=== PATIENT | female | born 1990 | race Caucasian/White ===

== ENCOUNTER 2017-05-22 16:38 | Emergency (ER) | payer OTHER, SELFPAY ==
[2017-05-22 16:38] VITALS: BP 116/73; PULSE 95; RESP 18; TEMP 36.8; O2SAT 100; BMI 36.5
--- NOTE | 2017-05-22 17:11 | ED.VISSUMM ---
- ER Visit Summary Date of Service: 05/22/17 Chief Complaint: [] Alcohol poisoning History of Present Illness: The patient is a 27 F [] complaining of severe malaise and nausea after reportedly drinking 20 shots of alcohol last night with her friends. Reports diffuse abdominal discomfort. Reports difficulty getting comfortable. Denies having an alcohol problem. She reports this was an isolated incident. Physical Examination: [] Afebrile, vital signs stable. Middle-age female no acute distress. Cardiovascular exam is regular rate and rhythm. Lungs are clear to auscultation. Abdomen is soft and nontender. Remainder of exam is unremarkable. Test Results: [] White blood cell count elevated 12.9. Electrolytes normal. LFTs normal. Lipase normal. EtOH negative. Emergency Department Course and Treatment: [] She given intravenous fluids, Phenergan. On serial exam she was able to pass a p.o. challenge and was amenable to discharge. She was counseled on the importance of avoiding high volumes of alcohol consumption. Provided a short-term prescription for Phenergan tablets 25 mg #20. Treatment Plan: [] Follow-up with PCP. Disposition: [] Discharge, stable. Impression: [] Vomiting Alcohol abuse This note was generated with [employer] dictation software. It may contain incorrect words, spelling, and punctuation that were not noted in review of the chart prior to signing ED Disposition - Plan for ED Patient: Chief Complaint: Nausea/Vomiting Referrals: Светлана Bowen MD [Primary Care Provider] -
[2017-05-22] MEDS: 0.9% Normal Saline 1,000 ML 1000 ML IV (17:27)
[2017-05-22 18:30] LABS: Absolute Lymphocyte Count 1.35 X10^3/ul (0.83-4.51); Absolute Neutrophil Count 11.1 X10^3/uL (2.0-7.7); Basophil# 0.07 X10^3/uL; Basophil% 0.5 % (0-1); Eosinophil# 0.02 X10^3/uL; Eosinophils% 0.2 % (0-5); Hematocrit 43.1 % (37-47); Hemoglobin 14.1 g/dl (12.0-15.0); Lymphocyte # 1.35 X10^3/ul (4.0); Lymphocyte % 10.4 % (19-41); Mean Corp Hgb Conc 32.7 g/gl (32-36); Mean Corpuscular Hgb 29.1 pg (27.0-32.0); Mean Platelet Vol. 10.2 fl (6.2-12.0); Monocyte# 0.32 X10^3/uL; Monocyte% 2.5 % (0-10); Neutrophil # 11.14 X10^3/uL (2.7-7.7); Neutrophil % 86.2 % (47-70); Platelet Count 486 K/mm3 (150-450); RBC Distribution Width CV 13.1 % (11.6-14.6); RBC Distribution Width SD 42.7 fl (35.1-43.9); Red Blood Count 4.84 M/mm3 (4.2-5.4); White Blood Count 12.9 K/mm3 (4.4-11.0)
[2017-05-22 18:37] LABS: POSITIVE COUNT NO; POSITIVE DIFFERENTIAL NO; POSITIVE MORPHOLOGY NO
[2017-05-22 18:45] LABS: ALB/GLOB Ratio 0.9 RATIO (0.9-2.4); AST(SGOT) 16 U/L (15-37); Alanine Aminotransfer ALT/SGPT 25 U/L (13-56); Albumin, Serum 3.6 g/dL (3.2-5.0); Alkaline Phosphatase 106 U/L (45-117); Anion Gap 10 (5-15); BUN 15 mg/dL (7-18); BUN/Creat Ratio 21.5 RATIO (10-20); Calcium,Total 8.4 mg/dL (8.5-10.1); Chloride 108 mmol/L (98-107); EST Glomerular Filtration Rate 108 mL/min (>60); Est Glom Filt Rate - Afr Amer 130 mL/min (>60); Globulin 4.2 g/dL (2.2-4.2); Glucose 84 mg/dL (74-106); Lipase 105 U/L (73-393); Potassium 3.7 mmol/L (3.5-5.1); Protein, Total 7.8 g/dL (6.4-8.2); Sodium Level 143 mmol/L (136-145)
--- NOTE | 2017-05-22 19:33 | ED.DEP ---
ED Disposition - Plan for ED Patient: Disposition: Home or Assisted Living Chief Complaint: Nausea/Vomiting Instructions: ED Nausea Vomiting, ED Alcohol Abuse Referrals: Светлана Bowen MD [Primary Care Provider] -
[2017-05-22 19:44] VITALS: BP 107/65; PULSE 85; RESP 18; O2SAT 100
== END 2017-05-22 19:44 | disposition home or self-care (01) ==
PROVIDERS: Emergency Provider Emergency Medicine; Family Provider Family Medicine; PCP Family Medicine
DX: R11.2 Nausea with vomiting, unspecified (principal); F10.10 Alcohol abuse, uncomplicated; E66.9 Obesity, unspecified
CPT/HCPCS: 80053; 80320; 83690; 85025; 96361; 96374; 99283; J7030; A4216; G0480

== ENCOUNTER → 2017-07-16 18:49 | Outpatient (CLI) | payer OTHER, SELFPAY ==
[2017-07-16 22:09] LABS: Chlamydia Trachomatis by PCR Negative (Negative); Neisserai gonorrhoeae by PCR Negative (Negative); Probe Check PASS; Sample Adequacy Control PASS; Specimen Processing Control PASS
[2017-07-22 10:24] LABS: HPV Reflexed? NOT INDICATED
== END ==
PROVIDERS: Family Provider Family Medicine; PCP Family Medicine; Visit Provider Nurse Practitioner Women's Health
DX: Z11.3 Encounter for screening for infections with a predominantly sexual mode of transmission (principal); Z12.4 Encounter for screening for malignant neoplasm of cervix
CPT/HCPCS: 87491; 87591; 88175; G0145

== ENCOUNTER → 2017-08-27 11:50 | Outpatient (CLI) | payer OTHER, SELFPAY ==
--- NOTE | 2017-08-27 | CER_PTH ---
PATIENT: SHAWN OVIEDO LOC: [facility] U#:[id number] AGE/SX: 35/F ROOM: RE08/27/[address]: Dr. Jada Alves MD : 1990 BED: DIS: SPEC #: [id number] RECD: 08/27/17 14:48 STATUS: EDUARDO HALLEY #: [id number] HAILE: 08/27/17 00:[address]: Jada Alves DEPT: SURGICAL PATHOLOGY RECD BY: Armond Keita ENTERED: 08/27/17 14:48 SP TYPE: CERV OTHR DR: Dr. 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 Dysplastic changes also involve endocervical glands. Hyperkeratosis and verrucous changes Chronic inflammation and squamous metaplasia. See comment. ONEIDA:susan 08/30/17 COMMENT Immunohistochemistry ([id number]) for surrogate HPV marker (p16) supports the above diagnosis. MICROSCOPIC DESCRIPTION Slides are reviewed. GROSS DESCRIPTION Received in fixative is one container labeled with the patient's name and designated 10 o'clock cervical. The specimen consists of one irregular fragment of light de leon soft tissue that measures 0.8 x 0.5 x 0.1 cm. The specimen is totally submitted in one cassette. / ONEIDA:susan 08/27/17 TC:5 CPT: 82111
--- NOTE | 2017-08-27 | IMM_PTH ---
PATIENT: SHAWN OVIEDO LOC: [facility] U#:[id number] AGE/SX: 35/F ROOM: RE08/27/[address]: Dr. Jada Alves MD : 1990 BED: DIS: SPEC #: [id number] RECD: 08/30/17 12:27 STATUS: EDUARDO REQ #: [id number] HAILE: 08/27/17 00:[address]: Jada Alves DEPT: IMMUNOHISTOCHEMISTRY RECD BY: Tia Nelson ENTERED: 08/30/17 12:27 SP TYPE: IMMUNO OTHR DR: Dr. Светлана Bowen MD Tissues: Uterine cervix, NOS Procedures: p16 (initial) KI-67 (add) PHYSICIAN & [place] [id number] SPECIMEN INFORMATION: Tissue Source: Cervix Clinical Info: Screen Specimen Number: [id number] CPT code: 22816, 11260 METHODOLOGY: Deparaffinized sections of prefer/formalin-fixed tissue or PAP/DQ stained slides are incubated with monoclonal/polyclonal antibodies/oligonucleotide probes. Localization is made via biotin free immunoperoxidase method. Appropriate controls are performed and reacted as expected. Results on target cell population are indicated in the following table: RESULTS: ANTIBODY / CLONE RESULT P16 (E6H4) positive, block staining Ki-67 (30-9) positive, moderate These tests were developed and their performance characteristics determined by [facility]. They may not have been cleared or approved by the U.S. Food and Drug Administration. The FDA has determined that such clearance or approval is not necessary. INTERPRETATION: Cervix: Mild and focal moderate squamous dysplasia. SJ:susan 08/31/17
== END ==
PROVIDERS: Family Provider Family Medicine; PCP Family Medicine; Visit Provider Obstetrics & Gynecology
DX: N87.9 Dysplasia of cervix uteri, unspecified (principal); N88.0 Leukoplakia of cervix uteri; N76.0 Acute vaginitis
CPT/HCPCS: 87070; 87205; 88305; 88341; 88342

== ENCOUNTER 2017-09-05 11:07 | Emergency (ER) | payer OTHER, SELFPAY ==
[2017-09-05 11:08] VITALS: BP 129/82; PULSE 72; RESP 22; TEMP 36.8; O2SAT 100; BMI 40.3
--- NOTE | 2017-09-05 11:38 | ED.VISSUMM ---
- ER Visit Summary Date of Service: 09/05/17 Chief Complaint: Abscess History of Present Illness: The patient is a [address] Buck Love and Dr. Bowen. She reports that she has an abscess to her right labia majora that began 4 days ago. Is gradually gotten worse. She is a throbbing pain is 9 out of 10 with walking and 5 out of 10 after ibuprofen. She denies any fever or chills. Physical Examination: Vitals: Stable. Afebrile. General: Well-nourished and well-developed. Head: Normocephalic atraumatic. Neck: Supple, no lymphadenopathy. No JVD. Nontender. Cardiovascular: Regular rate and rhythm. No murmurs. Respiratory: No respiratory distress. Clear to auscultation bilaterally. Abdominal: Soft, nontender, nondistended, normal bowel sounds. No guarding, rebound, or peritoneal signs. : In the midportion of the right labia majora there is a quarter size indurated area. There is no overlying erythema or fluctuance. There is no evidence of a Bartholin's gland abscess. Back: Nontender. Extremities: Nontender, no edema. Skin: Normal color, no rash. Neurologic: Alert and oriented ?3. Cranial nerves II through XII are intact. Normal strength and sensation. Psych: Normal affect. Emergency Department Course and Treatment: Had a prolonged discussion the patient about treatment options. At this time I do not feel that an I&D would be helpful. She was treated with Bactrim and Keflex. Treatment Plan: Patient was discussed with Dr. Buck Love. She will be discharged instructions to follow-up in 3 days for a repeat exam. She will be discharged on Bactrim, Keflex, [place], and Zofran. Return to the emergency department for any worsening symptoms. Disposition: To home in improved and stable condition. Impression: 1. Early abscess right labia majora. This note was generated with [employer] dictation software. It may contain incorrect words, spelling, and punctuation that were not noted in review of the chart prior to signing ED Disposition - Plan for ED Patient: Disposition: Home or Assisted Living Chief Complaint: Wound Instructions: ED Staph Infec Abx Tx Only Prescriptions: Ondansetron [Zofran Odt] 4 mg PO Q8H PRN PRN #10 tablet PRN Reason: Nausea Cephalexin [Keflex] 500 mg PO Q6 #40 capsule Hydrocodone/Acetaminophen [[place] 5-325 Tablet] 1 - 2 each PO 4X/DAY PRN PRN 3 Days #12 tablet PRN Reason: Pain Smz/Tmp Ds [Bactrim Ds] 1 tablet PO BID #20 tablet Referrals: Jada Alves MD [STAFF PHYSICIAN] - 09/08/17
[2017-09-05] MEDS: Ondansetron ODT 4 MG Tablet PO (11:53)
[2017-09-05] MEDS: Smz/Tmp Ds Tablet 1 TABLET PO (11:53)
[2017-09-05] MEDS: HYDROcodone Bitartrate/Apap 5/325 Tablet PO (11:53)
[2017-09-05] MEDS: Cephalexin 500 MG Capsule PO (12:38)
[2017-09-05 12:39] VITALS: PULSE 81; RESP 20; O2SAT 98
--- NOTE | 2017-09-05 12:40 | ED.RN ---
THIS NURSE REVIEWED D/C INSTRUCTIONS WITH PT. PT VERBALIZED UNDERSTANDING OF INSTRUCTIONS. PT DENIES FURTHER NEEDS OR QUESTIONS AT THIS TIME. PT AMBULATES FROM ROOM ON OWN WITHOUT ASSISTANCE FROM STAFF
== END 2017-09-05 12:41 | disposition home or self-care (01) ==
LOC: ED 11:50
PROVIDERS: Emergency Provider Emergency Medicine; Family Provider Family Medicine; PCP Family Medicine
DX: N76.4 Abscess of vulva (principal); R11.0 Nausea; J45.909 Unspecified asthma, uncomplicated
CPT/HCPCS: 99283

== ENCOUNTER → 2017-09-07 17:37 | Outpatient (CLI) | payer OTHER, SELFPAY | PROVIDERS: Family Provider Family Medicine; PCP Family Medicine; Visit Provider Obstetrics & Gynecology | DX: B99.9 Unspecified infectious disease (principal) | CPT/HCPCS: 87070; 87075; 87077; 87186; 87205 ==

== ENCOUNTER → 2018-09-07 | Outpatient (CLI) | payer OTHER, SELFPAY ==
[2018-09-07 09:09] VITALS: BMI 36.5
[2018-09-07 19:47] LABS: Chlamydia Trachomatis by PCR Negative (Negative); Neisserai gonorrhoeae by PCR Negative (Negative); Probe Check PASS; Sample Adequacy Control PASS; Specimen Processing Control PASS
[2018-09-13 16:41] LABS: HPV APTIMA, High Risk Negative (Negative)
== END | disposition home or self-care (01) ==
PROVIDERS: Family Provider Family Medicine; PCP Family Medicine; Referring Provider Nurse Practitioner Women's Health; Visit Provider Nurse Practitioner Women's Health
DX: N87.0 Mild cervical dysplasia (principal); Z11.3 Encounter for screening for infections with a predominantly sexual mode of transmission
CPT/HCPCS: 87491; 87591; 87624; 88175; G0145

== ENCOUNTER 2019-05-12 20:48 | Emergency (ER) | payer OTHER, SELFPAY ==
[2018-09-07 09:09] VITALS: BMI 36.5
[2019-05-12 20:48] VITALS: BP 126/77; PULSE 88; RESP 14; TEMP 37.1; O2SAT 96; BMI 40.4
--- NOTE | 2019-05-12 22:02 | ED.DCSUM_ITS ---
History of Present Illness Chief Complaint: Fever Informant: Patient Narrative: Patient is a 29-year-old female presenting with cough and fever. Patient states she has had a fever for the past 3 days. She is been taken Tylenol regularly for fever control. She states her last dose of Tylenol was 1-1/2 hours prior to arrival. She has associated cough is been present for the 2 days. It is deep and nonproductive. Patient notes he had bronchitis a few weeks ago but that had resolved. Patient has associated myalgias, dizziness, sinus congestion and diarrhea. She denies any nausea or vomiting. She had a flu swab yesterday which was negative. 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 Patient is especially concerned because of the amount of time she had a fever which is why she came to the emergency room. She also think she is dehydrated. Patient denies any urinary symptoms. She does not think she is . Past Medical History - Allergies and Home Meds Allergies/Adverse Reactions: Allergies No Known Allergies Allergy (Verified 05/12/19 20:48) Primary Care Physician: Coral Garcia MD [Primary Care Provider] - Past Medical History: None Surgical History: noncontributory Smoking Status: Current every day smoker Review of Systems General: Reports: Chills, Fever, Malaise. Denies: Sweats Eyes: Denies: Visual changes - bilaterally ENT: Denies: Bilateral ear pain, Rhinorrhea, Sore throat Cardiovascular: Denies: Chest pain, Palpitations Respiratory: Reports: Cough. Denies: Dyspnea, Sputum, Dyspnea on exertion Gastrointestinal: Reports: Diarrhea. Denies: Abdominal pain, Nausea, Vomiting, Melena, Hematochezia Genitourinary: Denies: Dysuria, Hematuria, Frequency Musculoskeletal: Reports: Myalgias. Denies: Arthralgias, Swelling Skin: Denies: Rash Neurological: Denies: Headache, Weakness, Numbness Physical Exam Vital Signs/Narrative: Vital Signs Temp Pulse Resp BP Pulse Ox 05/12/19 20:48 98.8 F 88 14 126/77 H 96 Inital Vital Signs reviewed: Yes General: Well nourished, Well developed Head: Normocephalic, Atraumatic Eyes: Perrl, EOMI Neck: Supple, Nontender Cardiovascular: Regular rate, Regular rhythm, No murmurs. Negative for: Murmur Respiratory: No distress, No Stridor, Chest nontender, Rhonchi. Negative for: Rales, Wheezing Abdomen: Soft, Nontender, Nondistended, Normal bowel sounds Back: Nontender, Normal Inspection Extremities: Nontender, No edema Skin: Normal color, No rash Neurological: Alert, Oriented x3, Cranial nerves II-XII grossly intact, Normal Strength, Normal Sensation Psychological: Normal affect Diagnostic/Tx/Re-eval Chest X-Ray - ED: 2 View, Read by ED Physician, Read by Radiologist, No Acute Disease Clinical Impression(s) from Imaging Studies Chest X-Ray 05/12/19 22:30 IMPRESSION: Normal x-ray examination of the chest. Electronically Signed: Phil Mccarthy DO at 22:44 EST Tel [phone], Service support , Laboratory Data 05/12/19 05/12/19 05/12/19 22:20 22:20 22:26 WBC 3.0 L RBC 4.67 Hgb 13.9 Hct 43.6 MCV 93.4 MCH 29.8 MCHC 31.9 L RDW Std Deviation 43.7 RDW Coeff of Prema 12.8 Plt Count 252 MPV 10.1 Immature Gran % (Auto) 0.300 Neut % (Auto) 55.1 Lymph % (Auto) 31.1 [place] % (Auto) 12.9 H Eos % (Auto) 0.3 Baso % (Auto) 0.3 Absolute Neuts (auto) 1.7 L Absolute Lymphs (auto) 0.94 Nucleated RBC % 0 Sodium Potassium Chloride Carbon Dioxide Anion Gap BUN Creatinine Estim Creat Clear Calc Est GFR (MDRD) Af Amer Est GFR (MDRD) Non-Af BUN/Creatinine Ratio Glucose Calcium Urine Color Yellow Urine Clarity Sl. Cloudy Urine pH 6.0 Ur Specific [place] 1.025 Urine Protein Negative Urine Glucose (UA) Normal Urine Ketones Negative Urine Occult Blood 25 H Urine Nitrite Negative Urine Bilirubin Negative Urine Urobilinogen Normal Ur Leukocyte Esterase 500 H Urine RBC 0 SEEN Urine WBC 5-10 SEEN Ur Squamous Epith Cells 10-25 SEEN Urine Bacteria 0 SEEN Urine Mucus 0 SEEN Urine Trichomonas 0-5 SEEN Urine Test Negative 01/24/20 22:26 WBC RBC Hgb Hct MCV MCH MCHC RDW Std Deviation RDW Coeff of Prema Plt Count MPV Immature Gran % (Auto) Neut % (Auto) Lymph % (Auto) [place] % (Auto) Eos % (Auto) Baso % (Auto) Absolute Neuts (auto) Absolute Lymphs (auto) Nucleated RBC % Sodium 140 Potassium 3.4 L Chloride 106 Carbon Dioxide 30.0 Anion Gap 4 L BUN 13 Creatinine 0.76 Estim Creat Clear Calc 83.16 Est GFR (MDRD) Af Amer 116 Est GFR (MDRD) Non-Af 96 BUN/Creatinine Ratio 17.1 Glucose 83 Calcium 8.8 Urine Color Urine Clarity Urine pH Ur Specific [place] Urine Protein Urine Glucose (UA) Urine Ketones Urine Occult Blood Urine Nitrite Urine Bilirubin Urine Urobilinogen Ur Leukocyte Esterase Urine RBC Urine WBC Ur Squamous Epith Cells Urine Bacteria Urine Mucus Urine Trichomonas Urine Test - Medical Decision Making Patient is evaluated for myalgias and cough. She appears nontoxic in no acute distress. Her vital signs are normal. Patient states she is been having fever but she took Tylenol about 1 hour prior to arrival. Patient denies any urinary symptoms. CBC is remarkable for leukopenia. This can be seen with a viral illness. Chest x-ray does not show any acute infiltrate. BMP is unremarkable. Urinalysis does show 500 leukoesterase.However it is contaminated and there is no bacteria seen. Urine culture sent but patient does not start on antibiotics. I do not think that she has a bladder infection/pyelonephritis at this time. Urine is negative. Patient be discharged home with symptomatic treatment and including Tessalon Perles. She has albuterol inhaler to use at home as needed. She is given IV fluids in the emergency room. Patient is given a work note for today and tomorrow. Patient is counseled on signs and symptoms requiring return to the emergency room. Patient verbalizes agreement and understand this plan. Patient discharged home in stable and improved condition. ED Disposition - Plan for ED Patient: Disposition: Home or Assisted Living Diagnosis: Cough, Febrile respiratory illness Instructions: BRONCHITIS, No Antibiotic (Adult) Prescriptions: Benzonatate [Tessalon Perle] 100 mg PO Q4H PRN PRN #20 cap PRN Reason: Cough Prescription Printed Referrals: Coral Garcia MD [Primary Care Provider] - Additional Instructions: You do not have pneumonia. Likely this is a viral illness. Your urine will be sent for culture however at this time I do not think you have a urinary tract infection. Return the emergency room with any worsening symptoms. Otherwise follow-up with your primary care doctor. Continue to alternate Tylenol and ibuprofen for fever. You can take [id number] decongestants/cold medicine for your symptoms. You have been prescribed a cough medicine today.
[2019-05-12] MEDS: 0.9% Normal Saline 1,000 ML 1000 ML IV (22:26)
--- NOTE | 2019-05-12 22:30 | RAD_ITS ---
STUDY: X-RAY CHEST REASON FOR EXAM: Female, 29 years old. Fever. TECHNIQUE: PA and lateral views of the chest. COMPARISON: None. FINDINGS: The lungs are clear and expanded. There is no demonstrated pleural abnormality. Normal size heart. Normal mediastinum and maxim. Normal visualized pulmonary arteries. Normal visualized aortic arch and descending thoracic aorta. Normal visualized thoracic spine. Normal visualized ribs, clavicles, and shoulders. There is no demonstrated abnormality of the visualized soft tissue structures of the upper abdomen. RAD/Chest PA and Lateral IMPRESSION: Normal x-ray examination of the chest. Electronically Signed: Phil Mccarthy DO at 22:44 EST Tel [phone], Service support ,
[2019-05-12 22:32] LABS: Bacteria 0 SEEN /hpf (None Seen); Mucous, Urine 0 SEEN /hpf (<or=2+); Red Blood Cells-Urine 0 SEEN /hpf (0-5)
[2019-05-12 22:37] LABS: Absolute Lymphocyte Count 0.94 X10^3/uL (0.83-4.51); Absolute Neutrophil Count 1.7 X10^3/uL (2.0-7.7); Basophil# 0.01 X10^3/uL; Basophil% 0.3 % (0-1); Eosinophil# 0.01 X10^3/uL; Eosinophils% 0.3 % (0-5); Hematocrit 43.6 % (37-47); Hemoglobin 13.9 g/dL (12.0-15.0); Lymphocyte # 0.94 X10^3/ul (4.0); Lymphocyte % 31.1 % (19-41); Mean Corp Hgb Conc 31.9 g/dL (32-36); Mean Corpuscular Hgb 29.8 pg (27.0-32.0); Mean Corpuscular Volume 93.4 fL (81-99); Mean Platelet Vol. 10.1 fl (6.2-12.0); Monocyte# 0.39 X10^3/uL; Monocyte% 12.9 % (0-10); NRBC Flagged by Analyzer 0 % (0-5); Neutrophil # 1.66 X10^3/uL (2.7-7.7); Neutrophil % 55.1 % (47-70); Platelet Count 252 K/mm3 (150-450); RBC Distribution Width CV 12.8 % (11.6-14.6); RBC Distribution Width SD 43.7 fl (35.1-43.9); Red Blood Count 4.67 M/mm3 (4.2-5.4)
[2019-05-12 22:45] LABS: Color, Urine Yellow (Yellow); Glucose, Dipstick Normal (Normal); Ketone-Dipstick Negative (Negative); Leukocyte Esterase-Dipstick 500 /ul (Negative); Nitrite-Dipstick Negative (Negative); Occult Blood-Urine 25 /ul (Negative); Protein-Dipstick Negative (Negative); Specific Gravity, Urine 1.025 (1.002-1.030); Urine Bilirubin Dipstick Negative (Negative); Urine Clarity Sl. Cloudy (Clear); Urine Urobilinogen Normal (Normal)
[2019-05-12 22:52] LABS: Anion Gap 4 (5-15); BUN 13 mg/dL (7-18); BUN/Creat Ratio 17.1 RATIO (10-20); Calcium,Total 8.8 mg/dL (8.5-10.1); Chloride 106 mmol/L (98-107); Creatinine, Serum 0.76 mg/dL (0.55-1.02); EST Glomerular Filtration Rate 96 mL/min (>60); Est Glom Filt Rate - Afr Amer 116 mL/min (>60); Estimated Creatinine Clearance 83.16 ml/min; Glucose 83 mg/dL (74-106); Potassium 3.4 mmol/L (3.5-5.1); Sodium Level 140 mmol/L (136-145)
[2019-05-12 23:19] LABS: Internal QC Validated? YES +Cl - CLEAR BKGD; Pregnancy, Urine Negative Negative; Squamous Epithelial Cells - UA 10-25 SEEN /hpf (5-10); Trichomonas 0-5 SEEN /hpf (None Seen); White Blood Cells 5-10 SEEN /hpf (0-5)
[2019-05-13 00:25] VITALS: BP 117/63; PULSE 66; RESP 16; O2SAT 100
== END 2019-05-13 00:34 | disposition home or self-care (01) ==
PROVIDERS: Emergency Provider Emergency Medicine; PCP Family Medicine; Referring Provider Family Medicine
DX: R05 Cough (principal); R50.9 Fever, unspecified; J98.9 Respiratory disorder, unspecified; R42 Dizziness and giddiness; R19.7 Diarrhea, unspecified; R09.81 Nasal congestion; M79.10 Myalgia, unspecified site; F17.200 Nicotine dependence, unspecified, uncomplicated
CPT/HCPCS: 71046; 80048; 81001; 81025; 85025; 87086; 87088; 96360; 99283; J7030; A4216

== ENCOUNTER → 2019-08-29 07:55 | Outpatient (CLI) | payer OTHER, MEDICAID, SELFPAY | PROVIDERS: PCP Family Medicine; Referring Provider Obstetrics & Gynecology; Visit Provider Obstetrics & Gynecology | DX: N91.2 Amenorrhea, unspecified (principal) | CPT/HCPCS: 36415; 84702 ==

== ENCOUNTER → 2019-08-31 16:22 | Outpatient (CLI) | payer OTHER, MEDICAID, SELFPAY ==
--- NOTE | 2019-08-31 16:23 | US_ITS ---
STUDY: FIRST TRIMESTER OBSTETRICAL ULTRASOUND (TWINS) REASON FOR EXAM: Female, 29 years old. LMP: July 18, 2019. DATES / VIABILITY TECHNIQUE: Transvaginal TECHNICAL QUALITY: Adequate. COMPARISON: None. FINDINGS: There are two demonstrated intrauterine gestational sacs. The amniotic membrane cannot be visualized. The estimated gestation age (EGA) by LMP is 6 weeks, 2 days. The estimated date of delivery (NAVA) by LMP is April 23, 2020. BABY A The mean sac diameter (MSD) measure 2.33 cm, indicating an estimated gestational age (EGA) of 7 weeks, 3 days. There is a visualized yolk sac. The yolk sac measures 2.3 mm. There is visualization of an embryo. Carotid rump measurement is 6.3 mm corresponding to a gestational age of 6 weeks and 4 days. The estimated gestation age (EGA) by US is 7 weeks, 0 days. The estimated date of delivery (NAVA) by US is April 18, 2020. There is demonstrated cardiac activity with a heart rate 115/122 bpm. BABY B The mean sac diameter (MSD) measure 2 cm, indicating an estimated gestational age (EGA) of 7 weeks, 0 days. There is a visualized yolk sac. The yolk sac measures 3 mm. There is visualization of an embryo. The crown-rump length (CRL) measures 6.4 mm, indicating an estimated gestational age (EGA) of 6 weeks, 4 days. The estimated gestation age (EGA) by US is 6 weeks, 6 days. The estimated date of delivery (NAVA) by US is April 19, 2020. There is demonstrated cardiac activity with a heart rate 112/117 bpm. MATERNAL ANATOMY The uterus measures 8.6 cm x 7 cm x 4.1 cm. There is no demonstrated uterine fibroid. The cervix is closed. The right ovary measures 3.2 cm x 2.4 cm x 2.0. There is a corpus luteum cyst measuring 1.5 cm x 1.7 cm x 1.4 cm. There is no visualized right adnexal mass or complex lesion. The left ovary measures 2.3 cm x 2.5 cm x 1.5. Corpus luteum cyst measuring 1.7 cm x 1.4 cm x 1 cm. There is no visualized left adnexal mass or complex lesion. There is no fluid in the cul de sac. US/Init OB < 14Wks US IMPRESSION: Live twin gestation as described. Electronically Signed: Steve Sykes, at 8:28 EDT , Service support ,
== END ==
PROVIDERS: PCP Family Medicine; Referring Provider Obstetrics & Gynecology; Visit Provider Obstetrics & Gynecology
DX: Z34.91 Encounter for supervision of normal pregnancy, unspecified, first trimester (principal); Z3A.01 Less than 8 weeks gestation of pregnancy
CPT/HCPCS: 76801

== ENCOUNTER → 2019-09-15 09:42 | Outpatient (CLI) | payer OTHER, MEDICAID, SELFPAY ==
[2019-09-15 09:30] VITALS: BMI 40.4
[2019-09-15 10:06] LABS: Absolute Lymphocyte Count 1.29 X10^3/uL (0.83-4.51); Absolute Neutrophil Count 4.2 X10^3/uL (2.0-7.7); Basophil# 0.03 X10^3/uL; Basophil% 0.5 % (0-1); Eosinophil# 0.08 X10^3/uL; Eosinophils% 1.3 % (0-5); Hematocrit 38.4 % (37-47); Hemoglobin 12.4 g/dL (12.0-15.0); Lymphocyte # 1.29 X10^3/ul (4.0); Lymphocyte % 21.4 % (19-41); Mean Corp Hgb Conc 32.3 g/dL (32-36); Mean Corpuscular Hgb 29.5 pg (27.0-32.0); Mean Corpuscular Volume 91.4 fL (81-99); Mean Platelet Vol. 10.4 fl (6.2-12.0); Monocyte# 0.45 X10^3/uL; Monocyte% 7.5 % (0-10); NRBC Flagged by Analyzer 0 % (0-5); Neutrophil # 4.16 X10^3/uL (2.7-7.7); Platelet Count 304 K/mm3 (150-450); RBC Distribution Width CV 12.4 % (11.6-14.6); RBC Distribution Width SD 41.6 fl (35.1-43.9)
[2019-09-15 10:20] LABS: Glucose Challenge Gest 1H 50g 100 mg/dL (70-140)
[2019-09-15 16:43] LABS: HIV - WCH Non-Reactive (Nonreactive); Hepatitis B Surface Antigen Non-Reactive (Nonreactive); Hepatitis C Antibody Non-Reactive (Nonreactive); Rubella IgG 42.8 IU/mL
[2019-09-15 16:47] LABS: Amphetamine Urine VISTA NEGATIVE (<1000 ng/mL); Barbiturate Urine VISTA NEGATIVE (< 200 ng/mL); Benzodiazepine Urine VISTA NEGATIVE (< 200 ng/mL); Cocaine Urine VISTA NEGATIVE (< 300 ng/mL); Ecstacy Urine VISTA NEGATIVE (< 500 ng/mL); Methadone Urine VISTA NEGATIVE (< 300 ng/mL); PCP Urine VISTA NEGATIVE (< 25 ng/mL); THC Urine VISTA NEGATIVE (< 50 ng/mL); Vista UDS pH Range 7
[2019-09-15 17:12] LABS: Chlamydia Trachomatis by PCR Negative (Negative); Neisserai gonorrhoeae by PCR Negative (Negative); Probe Check PASS; Sample Adequacy Control PASS; Specimen Processing Control PASS
[2019-09-21 00:55] LABS: Rapid Plasmin Reagin (RPR) NONREACTIVE (NONREACTIVE)
[2019-09-21 11:30] LABS: HPV APTIMA, High Risk Positive (Negative)
[2019-09-21 11:32] LABS: HPV Reflexed? YES, CHARGE PATIENT
== END ==
PROVIDERS: PCP Family Medicine; Referring Provider Obstetrics & Gynecology; Visit Provider Obstetrics & Gynecology
DX: O09.90 Supervision of high risk pregnancy, unspecified, unspecified trimester (principal); O99.210 Obesity complicating pregnancy, unspecified trimester
CPT/HCPCS: 36415; 80307; 82950; 85025; 86592; 86703; 86762; 86803; 86850; 86900; 86901; 87086; 87088; 87340; 87491; 87591; 87624; 88175; G0145

== ENCOUNTER → 2019-10-02 08:12 | Outpatient (CLI) | payer OTHER, MEDICAID, SELFPAY ==
[2019-09-27 15:55] VITALS: BMI 40.4
[2019-10-02 09:24] LABS: NATERA MAILED SPECIMEN
== END ==
PROVIDERS: PCP Family Medicine; Referring Provider Obstetrics & Gynecology; Visit Provider Obstetrics & Gynecology
DX: Z34.81 Encounter for supervision of other normal pregnancy, first trimester (principal); Z31.430 Encounter of female for testing for genetic disease carrier status for procreative management
CPT/HCPCS: 36415

== ENCOUNTER → 2019-11-07 11:49 | Outpatient (CLI) | payer MEDICAID, SELFPAY ==
[2019-10-09 08:59] VITALS: BMI 40.4
== END ==
PROVIDERS: PCP Family Medicine; Referring Provider Obstetrics & Gynecology; Visit Provider Obstetrics & Gynecology
DX: Z11.59 Encounter for screening for other viral diseases (principal)
CPT/HCPCS: 87635; C9803; G2023; U0003

== ENCOUNTER → 2020-01-01 | Outpatient (CLI) | payer MEDICAID, SELFPAY ==
[2020-01-01 11:36] VITALS: BMI 40.4
== END | disposition home or self-care (01) ==
LOC: LABSPEC 14:00
PROVIDERS: PCP Family Medicine; Referring Provider Obstetrics & Gynecology; Visit Provider Obstetrics & Gynecology
DX: O26.899 Other specified pregnancy related conditions, unspecified trimester (principal); R10.9 Unspecified abdominal pain; Z3A.00 Weeks of gestation of pregnancy not specified
CPT/HCPCS: 87086; 87088

== ENCOUNTER → 2020-01-16 08:04 | Outpatient (CLI) | payer MEDICAID, SELFPAY ==
[2020-01-10 14:38] VITALS: BMI 40.4
[2020-01-16 09:02] LABS: Absolute Lymphocyte Count 1.34 X10^3/uL (0.83-4.51); Absolute Neutrophil Count 7.2 X10^3/uL (2.0-7.7); Basophil# 0.03 X10^3/uL; Basophil% 0.3 % (0-1); Eosinophil# 0.09 X10^3/uL; Hematocrit 35.9 % (37-47); Hemoglobin 11.7 g/dL (12.0-15.0); Lymphocyte # 1.34 X10^3/ul (4.0); Lymphocyte % 14.7 % (19-41); Mean Corp Hgb Conc 32.6 g/dL (32-36); Mean Corpuscular Hgb 30.2 pg (27.0-32.0); Mean Corpuscular Volume 92.5 fL (81-99); Mean Platelet Vol. 10.8 fl (6.2-12.0); Monocyte# 0.42 X10^3/uL; Monocyte% 4.6 % (0-10); NRBC Flagged by Analyzer 0 % (0-5); Neutrophil # 7.19 X10^3/uL (2.7-7.7); Neutrophil % 78.7 % (47-70); Platelet Count 240 K/mm3 (150-450); RBC Distribution Width CV 13.2 % (11.6-14.6); RBC Distribution Width SD 44.7 fl (35.1-43.9); Red Blood Count 3.88 M/mm3 (4.2-5.4); White Blood Count 9.1 K/mm3 (4.4-11.0)
[2020-01-16 09:06] LABS: Glucose Challenge Gest 1H 50g 136 mg/dL (70-140)
== END ==
PROVIDERS: PCP Family Medicine; Referring Provider Obstetrics & Gynecology; Visit Provider Obstetrics & Gynecology
DX: O09.90 Supervision of high risk pregnancy, unspecified, unspecified trimester (principal); O40.9XX0 Polyhydramnios, unspecified trimester, not applicable or unspecified; Z13.1 Encounter for screening for diabetes mellitus
CPT/HCPCS: 36415; 82950; 85025

== ENCOUNTER → 2020-01-19 10:02 | Outpatient (CLI) | payer MEDICAID, SELFPAY ==
[2020-01-10 14:38] VITALS: BMI 40.4
[2020-01-19 11:20] LABS: Glucose GTT-Gestation. Fasting 62 mg/dL (<105)
[2020-01-19 12:46] LABS: Glucose GTT-Gestational 1 Hr 160 mg/dL (<190)
[2020-01-19 12:49] LABS: Glucose GTT-Gestational 2 Hr 136 mg/dL (<165)
[2020-01-19 14:23] LABS: Glucose GTT-Gestational 3 Hr 73 L (<145)
== END ==
PROVIDERS: PCP Family Medicine; Referring Provider Obstetrics & Gynecology; Visit Provider Obstetrics & Gynecology
DX: Z13.1 Encounter for screening for diabetes mellitus (principal)
CPT/HCPCS: 36415; 82951; 82952

== ENCOUNTER → 2020-01-22 | Outpatient (CLI) | payer MEDICAID, SELFPAY ==
[2020-01-22 15:03] VITALS: BMI 40.4
== END | disposition home or self-care (01) ==
LOC: LABSPEC 01-23 09:53
PROVIDERS: PCP Family Medicine; Referring Provider Obstetrics & Gynecology; Visit Provider Obstetrics & Gynecology
DX: R30.0 Dysuria (principal)
CPT/HCPCS: 87086; 87088

== ENCOUNTER 2020-01-27 01:09 | Emergency (ER) | payer MEDICAID, SELFPAY ==
[2020-01-26 11:48] VITALS: BMI 40.4
[2020-01-27 01:10] VITALS: BP 124/83; PULSE 92; RESP 15; TEMP 36.7; O2SAT 99; BMI 44.9
--- NOTE | 2020-01-27 01:35 | ED.DCSUM_ITS ---
- ER Visit Summary Date of Service: 01/27/20 Chief Complaint: Labial abscess History of Present Illness: The patient is a 30 F who presents with a left labial abscess. She noticed it yesterday. She has been having more pain tonight which made her come in. She is already on Keflex from her EDUCATIONAL FUNDRAISING DIRECTOR. She is 37 weeks with twins. She does have a history of these in the past and they have required incision and drainage. This 1 has not had any drainage. Physical Examination: Vital signs reviewed. exam reveals a left labial abscess on the lower portion. It is 1.5 cm in length. It is fluctuant. It is tender to palpation. The rest of her exam is unremarkable Test Results: None performed Emergency Department Course and Treatment: With radar tester in the room, incision and drainage was performed. 2 cc of lidocaine was used over the abscess. An 11 blade was used to make an incision over the fluctuant part of the abscess. There was bloody drainage. The size went out significantly with this. Patient had improvement of symptoms. Patient will keep this area clean and dry. She will continue her antibiotics and she will follow-up with her PCP. Treatment Plan: [] Disposition: Discharge Impression: Left labial abscess, 1.5 cm Incision and drainage by ED physician This note was generated with [employer] dictation software. It may contain incorrect words, spelling, and punctuation that were not noted in review of the chart prior to signing ED Disposition - Plan for ED Patient: Disposition: Home or Assisted Living Instructions: ED Abscess Incision And Drainage Referrals: Coral Garcia MD [Primary Care Provider] -
== END 2020-01-27 02:09 | disposition home or self-care (01) ==
LOC: ED 01:57
PROVIDERS: Emergency Provider Emergency Medicine; PCP Family Medicine
DX: O23.593 Infection of other part of genital tract in pregnancy, third trimester (principal); O30.003 Twin pregnancy, unspecified number of placenta and unspecified number of amniotic sacs, third trimester; Z3A.37 37 weeks gestation of pregnancy
CPT/HCPCS: 56405; 99283

== ENCOUNTER 2020-01-27 16:02 | Emergency (ER) | payer MEDICAID, SELFPAY ==
[2020-01-27 01:10] VITALS: BMI 44.9
[2020-01-27 16:02] VITALS: BP 132/87; PULSE 98; RESP 18; TEMP 36.2; O2SAT 98
[2020-01-27 16:03] VITALS: BP 132/87; PULSE 98; RESP 18; TEMP 36.2; O2SAT 98; BMI 45.4
--- NOTE | 2020-01-27 16:51 | ED.DCSUM_ITS ---
- ER Visit Summary Date of Service: 01/27/20 Chief Complaint: [Labial abscess] History of Present Illness: The patient is a 30 F [presents the emergency department with an abscess on her left labia that she initially noted 3 days ago. Patient was seen by her CLIENT EXECUTIVE yesterday and started on Keflex. Patient continued to have discomfort so she came in and 1 in the morning this morning and had an incision and drainage by emergency room physician. Patient states that she felt okay for a couple of hours but then started having more discomfort and she feels like the area of swelling is now 3 times larger than initially. She denies any fever or chills. Patient also states that she is currently with twins and is 27 weeks.] Physical Examination: [HEENT-PERRLA, EOMI. Cranial nerves II through XII grossly intact. TMs clear. Mucous membranes moist. No adenopathy. Cardiovascular-regular rate and rhythm without murmur or ectopy Lungs-clear to auscultation, chest wall stable without crepitus or subcu emphysema Abdomen-normoactive bowel sounds, soft, nontender, no rebound or rigidity, no peritoneal signs. exam-patient has an area of soft tissue swelling to the left labia majora measuring approximately 3 cm in length and about a centimeter half in diameter. Area is tender to palpation and slightly erythematous. No opening noted from prior I&D. Extremities-intact ?4, normal range of motion, normal pulses, atraumatic] Test Results: [None indicated] Emergency Department Course and Treatment: [Incision and drainage of suspected labial abscess-area of abscess sterilely draped and prepped. Anesthetized locally with 1% lidocaine total 2 cc. Skin cleansed with Shur-Clens. Using an 11 blade a 1 cm incision was made and moderate amount of purulent debris was expressed. I used curved hemostats to undermine the tissues. I placed a small amount of packing within the wound and clean dressing was applied.] Treatment Plan: [Patient advised to continue with the Keflex. Patient to follow-up with her CLIENT EXECUTIVE for wound check in 3 to 5 days. She is advised to return if worsening pain, increased swelling, fever, or condition should worsen anyway.] Disposition: [Discharged home in stable condition] Impression: [Labial abscess-incision and drainage] This note was generated with [employer] software. It may contain incorrect words, spelling, and punctuation that were not noted in review of the chart prior to signing ED Disposition - Plan for ED Patient: Referrals: Coral Garcia MD [Primary Care Provider] -
--- NOTE | 2020-01-27 16:54 | ED.DEP ---
ED Disposition - Plan for ED Patient: Instructions: ED Abscess Incision And Drainage Referrals: Coral Garcia MD [Primary Care Provider] - Jada Alves MD [STAFF PHYSICIAN] - 3-5 Days
== END 2020-01-27 16:59 | disposition home or self-care (01) ==
LOC: ED 16:19
PROVIDERS: Emergency Provider Emergency Medicine; PCP Family Medicine
DX: O23.592 Infection of other part of genital tract in pregnancy, second trimester (principal); O30.002 Twin pregnancy, unspecified number of placenta and unspecified number of amniotic sacs, second trimester; Z3A.27 27 weeks gestation of pregnancy
CPT/HCPCS: 56405 ×2; 99282; 99283

== ENCOUNTER → 2020-03-04 | Outpatient (CLI) | payer MEDICAID, SELFPAY ==
[2020-03-04 13:50] VITALS: BMI 49.8
== END | disposition home or self-care (01) ==
LOC: LABSPEC 16:41
PROVIDERS: PCP Family Medicine; Visit Provider Obstetrics & Gynecology
DX: O26.899 Other specified pregnancy related conditions, unspecified trimester (principal); R10.2 Pelvic and perineal pain
CPT/HCPCS: 87086; 87088

== ENCOUNTER → 2020-03-08 13:54 | Outpatient (CLI) | payer MEDICAID, SELFPAY ==
[2020-03-08 13:05] VITALS: BMI 49.6
[2020-03-08 15:54] LABS: Absolute Neutrophil Count 5.9 X10^3/uL (2.0-7.7); Basophil# 0.02 X10^3/uL; Basophil% 0.3 % (0-1); Eosinophil# 0.08 X10^3/uL; Hematocrit 36.3 % (37-47); Hemoglobin 11.7 g/dL (12.0-15.0); Lymphocyte % 15.4 % (19-41); Mean Corp Hgb Conc 32.2 g/dL (32-36); Mean Corpuscular Hgb 29.9 pg (27.0-32.0); Mean Corpuscular Volume 92.8 fL (81-99); Mean Platelet Vol. 12.1 fl (6.2-12.0); Monocyte# 0.56 X10^3/uL; Monocyte% 7.2 % (0-10); NRBC Flagged by Analyzer 0 % (0-5); Neutrophil % 75.5 % (47-70); Platelet Count 218 K/mm3 (150-450); RBC Distribution Width CV 13.2 % (11.6-14.6); RBC Distribution Width SD 44.9 fl (35.1-43.9); Red Blood Count 3.91 M/mm3 (4.2-5.4); White Blood Count 7.8 K/mm3 (4.4-11.0)
[2020-03-08 16:06] LABS: Protein, Urine (Random) 21.3 mg/dL (<11.9); Protein:Creat Ratio 290 mg/g CRE (0-200)
[2020-03-08 16:17] LABS: ALB/GLOB Ratio 0.6 RATIO (0.9-2.4); AST(SGOT) 10 U/L (15-37); Alanine Aminotransfer ALT/SGPT 12 U/L (13-56); Albumin, Serum 2.4 g/dL (3.2-5.0); Alkaline Phosphatase 148 U/L (45-117); Anion Gap 5 (5-15); BUN 4 mg/dL (7-18); BUN/Creat Ratio 8.3 RATIO (10-20); Calcium,Total 8.8 mg/dL (8.5-10.1); Chloride 108 mmol/L (98-107); Creatinine, Serum 0.48 mg/dL (0.55-1.02); EST Glomerular Filtration Rate 161 mL/min (>60); Est Glom Filt Rate - Afr Amer 195 mL/min (>60); Globulin 3.7 g/dL (2.2-4.2); Glucose 62 mg/dL (74-106); Potassium 3.7 mmol/L (3.5-5.1); Protein, Total 6.1 g/dL (6.4-8.2); Sodium Level 141 mmol/L (136-145)
== END ==
PROVIDERS: PCP Family Medicine; Referring Provider Obstetrics & Gynecology; Visit Provider Obstetrics & Gynecology
DX: O16.3 Unspecified maternal hypertension, third trimester (principal); O26.899 Other specified pregnancy related conditions, unspecified trimester; N89.8 Other specified noninflammatory disorders of vagina; Z3A.00 Weeks of gestation of pregnancy not specified
CPT/HCPCS: 36415; 80053; 82570; 84156; 85025; 87070; 87205

== ENCOUNTER 2020-03-13 19:25 | Outpatient (CLI) | payer MEDICAID, SELFPAY ==
[2020-03-08 13:05] VITALS: BMI 49.6
[2020-03-13 19:54] VITALS: BP 110/56; PULSE 82; PULSE 87; TEMP 36.8; O2SAT 99
[2020-03-13 20:14] VITALS: BP 99/51; PULSE 81
[2020-03-13 20:16] VITALS: BMI 50.2
[2020-03-13] MEDS: Acetaminophen 500 MG Tablet 1000 MG PO (20:25)
[2020-03-13 20:29] VITALS: BP 110/65; PULSE 81
--- NOTE | 2020-03-13 22:47 | OB.TRI.PN ---
Progress Notes Date of Service: 03/13/20 Progress Note: Patient presents for triage evaluation secondary to headache with mildly elevated blood pressure at home. Reports that headache did get better yesterday with Tylenol. Has not taken anything for headache today. States headache is a 6 out of 10. Reports blood pressure in the 130s over 80s at home. Blood pressures while in triage were normal. Headache nearly completely resolved after given Tylenol. Patient discharged home in stable condition. FHT: Moderate variability reactive no decelerations category I tracing x2 Monserrate: No contractions Assessment and plan: Reactive NSTs, reassuring maternal and status patient discharged to home to follow-up in office next week. See problem list details for additional plan information. Multi Select Codes - Urinary/Genital Urinary/Genital CPT Codes: 89464-77 non-stress test Interp
== END 2020-03-13 21:15 | disposition home or self-care (01) ==
LOC: WPOUT 19:37 → WP 03-15 07:01
PROVIDERS: PCP Family Medicine; Visit Provider Obstetrics & Gynecology
DX: O26.899 Other specified pregnancy related conditions, unspecified trimester (principal); R51.9 Headache, unspecified
CPT/HCPCS: 59025; 59050; 99218; G0378

== ENCOUNTER 2020-03-15 21:11 | Outpatient (CLI) | payer MEDICAID, SELFPAY ==
[2020-03-15 14:13] VITALS: BMI 50.0
[2020-03-15 21:31] VITALS: BMI 49.9
[2020-03-15 21:36] VITALS: BP 113/59; PULSE 74; TEMP 37.2; O2SAT 99
[2020-03-15] MEDS: Betamethasone/Betamethasone 30 MG/5 ML Vial 12 MG IM (22:00)
[2020-03-15] MEDS: Acetaminophen 500 MG Tablet 1000 MG PO (23:30)
[2020-03-15] MEDS: Terbutaline 1 MG/ML Vial 0.25 MG SC (23:31)
[2020-03-15 23:37] LABS: Mucous, Urine 0 SEEN /hpf (<or=2+)
[2020-03-15] MEDS: Lactated Ringers 1,000 ML 999 ML IV (23:46)
[2020-03-16 00:04] LABS: Absolute Lymphocyte Count 1.59 X10^3/uL (0.83-4.51); Absolute Neutrophil Count 8.3 X10^3/uL (2.0-7.7); Basophil# 0.03 X10^3/uL; Basophil% 0.3 % (0-1); Eosinophil# 0.15 X10^3/uL; Eosinophils% 1.4 % (0-5); Hematocrit 34.6 % (37-47); Hemoglobin 11.3 g/dL (12.0-15.0); Lymphocyte # 1.59 X10^3/ul (4.0); Lymphocyte % 14.9 % (19-41); Mean Corp Hgb Conc 32.7 g/dL (32-36); Mean Corpuscular Hgb 30.1 pg (27.0-32.0); Mean Platelet Vol. 12.3 fl (6.2-12.0); Monocyte# 0.59 X10^3/uL; Monocyte% 5.5 % (0-10); NRBC Flagged by Analyzer 0 % (0-5); Neutrophil # 8.28 X10^3/uL (2.7-7.7); Neutrophil % 77.3 % (47-70); Platelet Count 193 K/mm3 (150-450); RBC Distribution Width CV 13.2 % (11.6-14.6); RBC Distribution Width SD 43.8 fl (35.1-43.9); Red Blood Count 3.76 M/mm3 (4.2-5.4); White Blood Count 10.7 K/mm3 (4.4-11.0)
[2020-03-16 00:13] VITALS: TEMP 37.1; O2SAT 98
[2020-03-16 00:14] VITALS: BP 126/59; PULSE 101
[2020-03-16 00:22] LABS: Color, Urine Yellow (Yellow); Glucose, Dipstick Normal (Normal); Ketone-Dipstick Negative (Negative); Leukocyte Esterase-Dipstick Negative /ul (Negative); Nitrite-Dipstick Negative (Negative); Occult Blood-Urine 25 /ul (Negative); Protein-Dipstick 15 mg/dl (Negative); Urine Bilirubin Dipstick Negative (Negative); Urine Clarity Clear (Clear); Urine Urobilinogen Normal (Normal)
[2020-03-16 00:28] LABS: Bacteria 2+ /hpf (None Seen); Squamous Epithelial Cells - UA 0-5 SEEN /hpf (5-10); Transitional Epithelial - Ur 0-5 SEEN /hpf (0-5)
[2020-03-16 00:29] LABS: White Blood Cells 0-5 SEEN /hpf (0-5)
[2020-03-16 00:38] LABS: Group B Strep DNA By PCR Negative (Negative); Internal Control PASS; Probe Check PASS; Specimen Processing Control PASS
[2020-03-16] MEDS: Cefazolin 2 GM in 0.9% Normal Saline 100 ML IV (01:29)
[2020-03-16] MEDS: fentaNYL 100 MCG/2 ML Ampul 50 MCG IV (01:43)
[2020-03-16] MEDS: 0.9% Saline Lock 10 ML Syringe IV (02:39)
[2020-03-16 04:17] VITALS: TEMP 36.6; O2SAT 97; O2SAT 99
[2020-03-16 04:18] VITALS: BP 117/68; PULSE 83
--- NOTE | 2020-03-16 07:14 | US_ITS ---
STUDY: OBSTETRICAL ULTRASOUND - BIOPHYSICAL PROFILE REASON FOR EXAM: Female, 30 years old BPP DI/DI TWINS -- LABOR LMP: Unknown. PRIOR ULTRASOUND: None. TECHNIQUE: Transabdominal TECHNICAL QUALITY: Adequate. FINDINGS: There twin intrauterine fetus. Both fetus is in a cephalic presentation. There is demonstrated cardiac activity with a heart rate of baby A is 144 bpm and baby B is 138 bpm. There is a normal amniotic fluid volume. The placenta is anterior in location and is not low lying. There are Grade 2 placental changes. Age by LMP: 34 weeks, 4 days. NAVA by LMP: 04/23/2020. BIOPHYSICAL PROFILE: Baby A Breathing Movements (FBM): 2 Gross Body Movements (GBM): 2 Tone (FT): 2 Amniotic Fluid Volume (AFV): 2 TOTAL SCORE: 8 / 8 BIOPHYSICAL PROFILE: Baby B Breathing Movements (FBM): 2 Gross Body Movements (GBM): 2 Tone (FT): 2 Amniotic Fluid Volume (AFV): 2 TOTAL SCORE: 8 / 8 US/Biophysical Prof W/O Non Stres IMPRESSION: Normal biophysical profile of both fetus. heart rates as above. No evidence of complications currently. Electronically Signed: Miller Rosas DO at 10:05 EST Tel , Service support ,
--- NOTE | 2020-03-16 07:20 | OB.TRI.HP_ITS ---
- Problem List (1) Threatened premature labor Status: Acute Comment: steroids given 03/15, 28. 1-2/60/-2 (2) Polydactyly of right hand Status: Acute Comment: right finger (3) Transient hypertension of , antepartum Status: Acute Comment: BP mild range 03/08. Asymptomatic. PreE labs ordered. 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 Repeat rapid next visit in november (10) Status: Acute Qualifiers: Comment: NIPT low risk and carrier- neg . anatomy reviewed NL (11) Obesity affecting Status: Acute Comment: nl glucola at [facility], encourage healthy weight gain (12) Supervision of high risk , antepartum Status: Acute Comment: PRR NAVA 04/23/19 girl Rubi girl Katharine ROWENA Gatica (13) Asthma Status: Acute Comment: mild intermittent controlled. albuterol PRN (14) Anxiety Status: Acute Comment: currently on Celexa, encouraged counseling (15) SEAN I (cervical intraepithelial neoplasia I) Status: Acute Comment: 2017, 2018, continue pap annually normal pap and hpv in 2019 09/2019 ASCUS with positive HPV/colp sched. History of Present Illness Date of Service: 03/16/20 Was patient seen by the physician?: Yes Reason For Visit: RULE OUT LABOR Date of Service: 04/23/20 History of Present Illness: 30-year-old G1, P0 at 34 weeks 5 days presents with threatened labor. Patient has had increasing contractions in severity and frequency throughout the day. Upon evaluation she has made no cervical change since this afternoon but had regular contractions. She was monitored overnight and again found to not make any cervical change but still having irregular contractions. Allergies No Known Allergies Allergy (Verified 03/15/20 21:37) - Pertinent Past Medical History Medical History: Past Medical History (Last Reviewed 03/15/20 @ 14:14 by Solange Ureña) Asthma (Acute) mild intermittent controlled. albuterol PRN Anxiety (Acute) currently on Celexa, encouraged counseling SEAN I (cervical intraepithelial neoplasia I) (Acute) 2016, 2018, continue pap annually normal pap and hpv in 09/2019 ASCUS with positive HPV/colp sched. Abnormal Pap smear of cervix 2017 mild dysplasia; normal pap and hpv 2018 IBS (irritable bowel syndrome) Surgical History: Past Surgical History (Last Reviewed 03/15/20 @ 14:14 by Solange Ureña) History of colposcopy 2016 Laboratory Studies: Laboratory Tests 03/15/20 03/15/20 03/15/20 Range/Units 23:45 23:25 21:49 WBC 10.7 (4.4-11.0) K/mm3 RBC 3.76 L (4.2-5.4) M/mm3 Hgb 11.3 L (12.0-15.0) g/dL Hct 34.6 L (37-47) % MCV 92.0 (81-99) fL MCH 30.1 (27.0-32.0) pg MCHC 32.7 (32-36) g/dL RDW Std Deviation 43.8 (35.1-43.9) fl RDW Coeff of Prema 13.2 (11.6-14.6) % Plt Count 193 (150-450) K/mm3 MPV 12.3 H (6.2-12.0) fl Immature Gran % (Auto) 0.600 (0.0-0.9) % Neut % (Auto) 77.3 H (47-70) % Lymph % (Auto) 14.9 L (19-41) % [place] % (Auto) 5.5 (0-10) % Eos % (Auto) 1.4 (0-5) % Baso % (Auto) 0.3 (0-1) % Absolute Neuts (auto) 8.3 H (2.0-7.7) X10^3/uL Absolute Lymphs (auto) 1.59 (0.83-4.51) X10^3/uL Nucleated RBC % 0 (0-5) % Urine Color Yellow (Yellow) Urine Clarity Clear (Clear) Urine pH 7.0 (5.0 - 8.0) Ur Specific [place] 1.010 (1.002-1.030) Urine Protein 15 H (Negative) mg/dl Urine Glucose (UA) Normal (Normal) mg/dl Urine Ketones Negative (Negative) mg/dl Urine Occult Blood 25 H (Negative) /ul Urine Nitrite Negative (Negative) Urine Bilirubin Negative (Negative) mg/dL Urine Urobilinogen Normal (Normal) mg/dl Ur Leukocyte Esterase Negative (Negative) /ul Urine RBC Not Reportable Urine WBC 0-5 SEEN (0-5) /hpf Ur Squamous Epith Cells 0-5 SEEN (5-10) /hpf Ur Transition Epith Cell 0-5 SEEN (0-5) /hpf Urine Bacteria 2+ (None Seen) /hpf Urine Mucus 0 SEEN (<or=2+) /hpf Group B Strep DNA Negative (Negative) Specimen Comment Not Reportable Review of Systems Constitutional: Denies: Fever, Malaise Eyes: Denies: Blurred vision, Vision Change HEENT: Denies: Head Aches, Visual Changes Cardiovascular: Denies: Chest Pain, Palpitations Respiratory: Denies: Cough, Shortness of Breath, Wheezing Gastrointestinal: Denies: Abdominal Pain, Diarrhea, Nausea, Vomiting Genitourinary: Denies: Dysuria, Hematuria Musculoskeletal: Denies: Joint Pain, Muscle pain Skin: Denies: Lesions, Rash Neurological: Denies: Blurred vision, Focal weakness, Headaches Psychiatric: Denies: Anxiety, Depression Endocrine: Denies: Heat/ Cold Intolerance Hematologic/ Lymphatic: Denies: Easy Bruising, Easy Bleeding Physical Exam Vitals: Vital Signs Temp Pulse BP Pulse Ox 97.8 F 83 117/68 99 03/16/20 04:17 03/16/20 04:18 03/16/20 04:18 03/16/20 04:17 General: Alert, Cooperative, No apparent distress HEENT: Atraumatic, Normocephalic. Negative for: Thyromegaly, Lymphadenopathy Cardiovascular: Regular rate Lungs: Normal air movement Abdomen: Soft, Non Tender, Gravid Neurological: Deep Tendon Reflexes 2+/4 and Symmetrical, Neuro grossly intact. 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 Negative for: Vulvar lesions Estimated gestational size: Appropriate for gestational size Presentation: Cephalic - times 2 Cervix Dilation (cm): 1.5 Station: -2 Effacement (%): 70 NST - FHR Rate Baby A Baseline: 140 Variability:: Moderate Accelerations:: 15 x 15 Decelerations:: Variable - isolated NST Reactive:: Yes FHR Category:: Category I Uterine Activity:: q 2-4 - FHR Rate Baby B Baseline: 140 Variability:: Moderate Accelerations:: 15 x 15 Decelerations:: None NST Reactive:: Yes FHR Category:: Category I Impression/Plan 30-year-old G1, P0 at 34 weeks 5 days presents with threatened labor and di-ditwins Steroids given for prematurity. Will come in tonight for second dose of st eroids. Monitored overnight no cervical change. UA suspicious for UTI so dose of Ancef given and will DC home on Keflex. Urine culture sent. Reviewed labor precautions plan follow-up in the office. Isolated variable on baby A overnight, will get BPP prior to discharge today. Multi Select Codes - Visit Charges Observation E&M Codin Observ/hosp same date L3 - Urinary/Genital Urinary/Genital CPT Codes: 16011-50 non-stress test Interp
== END 2020-03-16 09:15 | disposition home or self-care (01) ==
LOC: WPOUT 21:19 → WP 21:31
PROVIDERS: PCP Family Medicine; Visit Provider Obstetrics & Gynecology
DX: O60.03 Preterm labor without delivery, third trimester (principal); O30.043 Twin pregnancy, dichorionic/diamniotic, third trimester; Z3A.34 34 weeks gestation of pregnancy
CPT/HCPCS: 96361; 96365; 96375; 59025; 59050; 76819; 81001; 85025; 87081; 87086; 87088; 87653; 94760; 96372; 99218; J7120; A4216; G0378; J0702

== ENCOUNTER 2020-03-16 20:55 | Outpatient (CLI) | payer MEDICAID, SELFPAY ==
[2020-03-15 21:31] VITALS: BMI 49.9
[2020-03-16 21:02] VITALS: BMI 51.5
[2020-03-16] MEDS: Betamethasone/Betamethasone 30 MG/5 ML Vial 12 MG IM (21:11)
--- NOTE | 2020-03-18 08:04 | OB.TRI.PN ---
Progress Notes Date of Service: 03/16/20 Progress Note: steroid injection for prematuirty threatened labor given - Problem List (1) Threatened premature labor Status: Acute Comment: steroids given 03/15, . 1-2/-2 Multi Select Codes - Urinary/Genital Urinary/Genital CPT Codes: No Charge - report visit no charge
== END 2020-03-16 21:12 | disposition home or self-care (01) ==
PROVIDERS: PCP Family Medicine; Visit Provider Obstetrics & Gynecology
DX: O47.9 False labor, unspecified (principal); Z3A.00 Weeks of gestation of pregnancy not specified
CPT/HCPCS: 96372; 99218; G0378; J0702

== ENCOUNTER → 2020-03-18 13:55 | Outpatient (CLI) | payer MEDICAID, SELFPAY ==
[2020-03-16 21:02] VITALS: BMI 51.5
[2020-03-18 14:12] LABS: Absolute Lymphocyte Count 1.19 X10^3/uL (0.83-4.51); Absolute Neutrophil Count 8.5 X10^3/uL (2.0-7.7); Basophil# 0.04 X10^3/uL; Basophil% 0.4 % (0-1); Eosinophil# 0.07 X10^3/uL; Eosinophils% 0.6 % (0-5); Hematocrit 32.8 % (37-47); Hemoglobin 10.5 g/dL (12.0-15.0); Lymphocyte # 1.19 X10^3/ul (4.0); Mean Corpuscular Hgb 30.3 pg (27.0-32.0); Mean Corpuscular Volume 94.8 fL (81-99); Mean Platelet Vol. 12.1 fl (6.2-12.0); Monocyte# 0.72 X10^3/uL; Monocyte% 6.7 % (0-10); NRBC Flagged by Analyzer 0 % (0-5); Neutrophil # 8.54 X10^3/uL (2.7-7.7); Neutrophil % 79.4 % (47-70); Platelet Count 194 K/mm3 (150-450); RBC Distribution Width CV 13.6 % (11.6-14.6); RBC Distribution Width SD 46.5 fl (35.1-43.9); Red Blood Count 3.46 M/mm3 (4.2-5.4); White Blood Count 10.8 K/mm3 (4.4-11.0)
[2020-03-18 14:28] LABS: ALB/GLOB Ratio 0.6 RATIO (0.9-2.4); AST(SGOT) 13 U/L (15-37); Alanine Aminotransfer ALT/SGPT 14 U/L (13-56); Albumin, Serum 2.3 g/dL (3.2-5.0); Alkaline Phosphatase 148 U/L (45-117); Anion Gap 4 (5-15); BUN 5 mg/dL (7-18); BUN/Creat Ratio 8.7 RATIO (10-20); Calcium,Total 8.2 mg/dL (8.5-10.1); Chloride 110 mmol/L (98-107); Creatinine, Serum 0.57 mg/dL (0.55-1.02); EST Glomerular Filtration Rate 132 mL/min (>60); Est Glom Filt Rate - Afr Amer 160 mL/min (>60); Globulin 3.6 g/dL (2.2-4.2); Glucose 95 mg/dL (74-106); Potassium 3.9 mmol/L (3.5-5.1); Protein, Total 5.9 g/dL (6.4-8.2); Sodium Level 142 mmol/L (136-145)
== END ==
PROVIDERS: PCP Family Medicine; Referring Provider Obstetrics & Gynecology; Visit Provider Obstetrics & Gynecology
DX: L50.8 Other urticaria (principal)
CPT/HCPCS: 36415; 80053; 85025

== ENCOUNTER 2020-03-21 15:15 | Outpatient (CLI) | payer MEDICAID, SELFPAY ==
[2020-03-21 14:44] VITALS: BMI 51.3
[2020-03-21 15:27] VITALS: BP 98/55; PULSE 73; TEMP 37.1; O2SAT 98
[2020-03-21 15:40] VITALS: BMI 50.8
--- NOTE | 2020-03-22 19:25 | OB.TRI.PN_ITS ---
Progress Notes Date of Service: 03/21/20 Progress Note: Patient presents for triage evaluation secondary to decreased movement. FHT: Moderate variability reactive no decelerations category I tracing Garretson: Rare contractions Assessment and plan: Reactive NST on both babies, reassuring maternal and status patient discharged to home to follow-up at next scheduled office visit. See problem list details for additional plan information. - Problem List (1) Decreased movement Status: Acute (2) Dizygotic twin Status: Acute Comment: fraternal twins Female/Female growth [id number]; follow up anatomy/nl, deliver @ 38 wks Multi Select Codes - Urinary/Genital Urinary/Genital CPT Codes: 10395-62 non-stress test Interp
== END 2020-03-21 16:32 | disposition home or self-care (01) ==
PROVIDERS: PCP Family Medicine; Referring Provider Obstetrics & Gynecology; Visit Provider Obstetrics & Gynecology
DX: O36.8190 Decreased fetal movements, unspecified trimester, not applicable or unspecified (principal); O30.049 Twin pregnancy, dichorionic/diamniotic, unspecified trimester; Z3A.00 Weeks of gestation of pregnancy not specified
CPT/HCPCS: 59025; 59050; 99218; G0378

== ENCOUNTER → 2020-04-05 10:23 | Outpatient (CLI) | payer MEDICAID, SELFPAY ==
[2020-04-04 15:33] VITALS: BMI 49.6
== END ==
PROVIDERS: PCP Family Medicine; Visit Provider Obstetrics & Gynecology
DX: Z20.828 Contact with and (suspected) exposure to other viral communicable diseases (principal)
CPT/HCPCS: 87635; U0003

== ENCOUNTER 2020-04-10 05:10 | Inpatient (IN) | payer MEDICAID, SELFPAY ==
[2020-02-02 13:15] VITALS: BMI 46.0
[2020-04-04 15:33] VITALS: BMI 49.6
[2020-04-10] VITALS (15 sets, daily range): BP systolic 103–137; BP diastolic 45–78; PULSE 66–87; RESP 12–16; TEMP 36.3–37.4; O2SAT 95–100; BMI 50.0
--- NOTE | 2020-04-10 | PLAC_PTH ---
PATIENT: SHAWN OVIEDO LOC: [facility] U#:[id number] AGE/SX: 30/F ROOM: WP004 RE04/10/[address]: Dr. Jada Alves MD : 1990 BED: 1 DIS: 04/13/2020 SPEC #: [id number] RECD: 04/10/20 12:03 STATUS: EDUARDO RELigia #: [id number] HAILE: 04/10/20 00:[address]: Jada Alves DEPT: SURGICAL PATHOLOGY RECD BY: Armond Keita ENTERED: 04/11/20 07:32 SP TYPE: PLACENTA OTHR DR: Dr. Coral Garcia MD Tissues: Placenta, NOS Procedures: Surgery Specimen Level V HEADER OPERATION: Primary section PRE-OP DIAGNOSIS: TISSUE SUBMITTED: Placenta MICROSCOPIC DIAGNOSIS Dichorionic diamniotic twin placenta (814 gm): Placental disc A: Umbilical cord - trivascular with no inflammation. Peripheral membranes - no pathologic change. Placental disc - intravillous congestion, intervillous congestion and mild Delmi-Romaine change. Placental disc B: Umbilical cord - trivascular with no inflammation. Peripheral membranes - no pathologic change. Placental disc - intervillous congestion and mild Delmi-Romaine change. See comment. AM:susan 04/15/20 COMMENT Mild hypovascularity of placental villi are noted in sections of the placental disc from side designated B. MICROSCOPIC DESCRIPTION Slides are reviewed. GROSS DESCRIPTION SPECIMEN: TWIN PLACENTA / CLINICAL INFORMATION: A. Weight: A - 2.76 kg; B - 2.33 kg B. Gestational Age: 38 weeks C. Sex: A - Female, B - Female The specimen consists of twin placenta consisting of a single placental disc and two umbilical cord and two sets of membranes. One of the umbilical cords shows a clamp which is arbitrarily assigned as placenta A. The dividing membranous septum is present in the middle of the single placental disc. PLACENTAL WEIGHT (POST FIXATION): 814 gm PLACENTAL DIMENSIONS: 22 x 20 x 3 cm PLACENTAL SHAPE: Usual ovoid PLACENTAL WEIGHT FOR GESTATIONAL AGE: Within 10-99th percentile (over/under percentile) PLACENTA A: MEMBRANES - The membranes of placenta A is almost not present, a very small segment of placenta A membrane is noted. A. Insertion: Marginal B. Site of rupture from edge: At edge of placental disc C. Color of membrane: Mac-manzano D. Abnormalities: None UMBILICAL CORD - Present A. Color: Mac-manzano B. Insertion: Marginal C. Length: 22 cm D. Diameter: 1.2 cm E. Number of vessels: Three F. Abnormalities: None PLACENTA B: MEMBRANES - Present A. Insertion: Marginal B. Site of rupture from edge: 7 cm from edge of placental disc C. Color of membrane: Mac-manzano D. Abnormalities: None UMBILICAL CORD - Present A. Color: Mac-manzano B. Insertion: Paracentral C. Length: 18 cm D. Diameter: 1 cm E. Number of vessels: Three F. Abnormalities: None PLACENTAL DISC - Present A. Color of surface: Mac-manzano B. surface abnormalities: None C. Maternal cotyledons: Intact with minimal tears. Maternal surface shows two adherent blood clots and partially disrupted and, however, appears to be complete. D. Attached retro placental clot: No clot E. Cut surface: Dark red and spongy F. Lesions: None G. Separate clot: Absent SECTIONS SUBMITTED: 11 cassettes 1 - Dividing membranous septum, 2-6 - placenta A (2 - membrane roll, 3 - umbilical cord, end inked black, 4-6 - body of the placenta including maternal and surfaces) 7-11 - placenta B (7 - membrane roll, 8 - umbilical cord, end inked black, 9-11 - body of the placenta including maternal and surfaces). SJ:susan 04/11/20 TC:5 CPT: 76401 x2
--- NOTE | 2020-04-10 01:14 | HP.PCM_ITS ---
- Problem List (1) 37 weeks gestation of Status: Acute Comment: covid test ordered- scheduled for 04/05/2020 0935 (2) Abnormal glucose affecting Status: Acute Comment: 3gtt normal (3) Anxiety Status: Acute Comment: currently on Celexa, encouraged counseling (4) Asthma Status: Acute Comment: mild intermittent controlled. 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 (7) Dizygotic twin Status: Acute Comment: fraternal twins Female/Female growth [id number]; follow up anatomy/nl, deliver @ 38 wks csection 04/10/20 (8) Influenza vaccine administered Status: Acute Comment: 01/10/2020 (9) Lab test negative for COVID-19 virus Status: Acute Comment: 04/08/2020 (10) Obesity affecting Status: Acute Comment: nl glucola at [facility], encourage healthy weight gain (11) Polydactyly of right hand Status: Acute Comment: right finger (12) Polyhydramnios Status: Acute Comment: twin B MVP 9.0- GCT given earlier, 02/07 US 8.0cm, 03/05 US poly resolved (13) Status: Acute Qualifiers: Comment: NIPT low risk and carrier- neg . anatomy reviewed NL (14) Supervision of high risk , antepartum Status: Acute Comment: PRR NAVA 04/23/19 girl Rubi girl Katharine ROWENA Gatica (15) Threatened premature labor Status: Acute Comment: steroids given 03/15, 28. 1-2/60/-2 (16) Transient hypertension of , antepartum Status: Acute Comment: BP mild range 03/08. Asymptomatic. PreE labs ordered. (17) Trichimoniasis Status: Acute Comment: Treated 09/27/19. Repeat rapid next visit in november History and Physical Date of Admission: 04/10/20 Intake Vital Signs 04/04/20 Height 5 ft 04/04/20 Weight: 254 lb 04/04/20 BMI 49.6 04/04/20 BP 130/80 H Intake Visit Reasons: 37WK OB *TWINS* Chief Complaint: est ob Restoration Technician Required: No Is patient in pain?: No Allergies No Known Allergies Allergy (Verified 04/04/20 15:33) Medications Citalopram [Celexa] 20 mg PO DAILY 05/12/19 [History Confirmed 04/04/20] vitamin#30 30 mg iron-10 mg iron-folic acid 1 mg-omg3 capsule cap PO 04/04/20 [History] Last Menstral Period: 07/18/19 Zika: Zika virus screening: Negative : No PFSH PFSH Medical History Asthma (Acute) Anxiety (Acute) SEAN I (cervical intraepithelial neoplasia I) (Acute) Abnormal Pap smear of cervix (Acute) IBS (irritable bowel syndrome) (Chronic) Surgical History History of colposcopy (Acute) Family History Grandmother Diabetes Father Hypertension Grandfather Heart disease Grandmother Diabetes Social History (Updated 04/04/20 @ 15:[address] 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 OB Visit NAVA Calculator Estimated Delivery Date Method Current WG Current Estimate 04/23/20 LMP (Certain) 37w 2d # 2 Expected Delivery Route/Plan vtx/transverse, patient requests primary Labor Preferences- CB/BF classes: done labor support person: mom- Shantel labor intervention preferences: none pain management options preferred: epidural cut cord/dad catch: [] : yes PP control planned: [] discussed possible routes of delivery and associated risks: discussed possible delivery modalities and possible indications for each including R/B/A of , VAVD, and CS. questions answered. special requests: [] Specific Issue/Plans flu vaccine: given tdap vaccine: given rhogam: na LARC form signed: declined movement and labor precautions reviewed. Problem list reviewed and updated with the most current plan of care details and appropriate orders placed. Relevant counseling for the gestational age provided. Continue routine care and follow up unless otherwise noted in visit no britt/problem list details Initial Weight: 204 lb Date EGA Weight BP Urine Prot Glucose FHR FuHt Pres Dilation Effaced St Visit Note 09/27/19 10w 1d 205 lb 8 oz (+1 lb 8 oz) 124/70 Negative Negative A B A B A B A MH:here for trich swab due to positive on pap. Pap was ASCUS with pos HPV and colp scheduled. Denies bleeding. Brief US confirms active twin gestation with FHTs 160s for each. B 10/09/19 11w 6d 205 lb (+16 oz) A 150 B 180 A B A B A no vb lof cramping nausea improved doing well NIPT drawn last week B 11/13/19 16w 6d 214 lb (+10 lb) Negative Negative A 145 B 150 A B A B A no vb lof good fm no regular ctx B 12/13/19 21w 1d 223 lb (+19 lb) 110/62 Negative Negative A 145 B 155 A B A B A B 01/01/20 23w 6d 224 lb (+20 lb) 110/88 Negative Negative A 145 B 150 A B 0 A B A SM- had some ctx no vb lof good fm. qurine culture sent. B 01/10/20 25w 1d 228 lb 8 oz (+24 lb 8 oz) 118/74 Negative Negative A 135 B 155 A B A B A GP - no LOF, VB, DFM, ctx. DEVYN for trich negative today. B 01/22/20 26w 6d 231 lb (+27 lb) 102/72 Negative A B A B 0 A B A B 10/09/20 27w 3d 234 lb (+30 lb) 122/74 A B A B A B A SM- co vulvar lump painful 1 cm in size no fevers or drainage- ordered keflex. B 02/02/20 28w 3d 236 lb (+32 lb) 122/84 Negative Negative A 145 B 155 A Cephalic B Breech A B A SM- no vb lof good fm no regular ctx folliculitis resolved B 02/16/20 30w 3d 242 lb (+38 lb) 122/80 Negative Negative A 145 B 150 A Cephalic B Breech A B A SM- no vb lof good fm no regular ctx B 03/01/20 32w 3d 251 lb (+47 lb) 130/76 Negative Negative A 140 B 150 A Cephalic B Breech A B A SM- no vb lof good fm no regular ctx. continuing testing. B 03/04/20 32w 6d 255 lb (+51 lb) A 145 B 145 A Cephalic B Breech 0.5 0 A -3 B A SM- co increased pelvic pressure and irregular ctx no vb lof goodfm x 2 B 03/08/20 33w 3d 254 lb 6 oz (+50 lb 6 oz) 132/90 Negative Negative A 154 B 144 A Cephalic B Cephalic 0 A B A GP - no LOF, VB, DFM, ctx. Continues to have pressure. Cx remains closed. Reports increased discharge. Culture collected. B 03/15/20 34w 3d 256 lb (+52 lb) 120/86 Negative Negative A 145 B 150 A Cephalic B Cephalic A B A SM- some spotting no lof good fm irregular ctx, co pressure B 03/21/20 35w 2d 263 lb (+59 lb) 124/86 Negative Negative A B A B 1 60 A -2 B A no vb lof co ctx and pelvic pressure no cervical change. decrease fm - to l and d for nsts. 11/24 BPPs wednesday B 03/29/20 36w 3d 252 lb (+48 lb) 117/78 Negative Negative A B A B A B A B ACOG First Trimester First Trimester: Second Trimester Second Trimester: Signs and Symptoms of Labor, Selecting a care provider, Reproductive Life Planning, Care Planning, Tobacco Cessation, Depression/Anxiety and Intimate Partner Violence Third Trimester Third Trimester: Pain Management Plans, Labor support person(s), Immediate Larc, Movement Monitoring and Feeding Yes ; discussed Trial of Labor after Counseling or discussed Circumcision preference Diagnostics Diagnostics Diagnostics Group B Strep DNA Negative (Negative) 03/15/20 Hgb 10.5 g/dL (12.0-15.0) L 03/18/20 Hct 32.8 % (37-47) L 03/18/20 Details: HIV: Urine Culture: Sequential Screen: NIPT Screen: ROS Const Reports system reviewed and no additional complaints, except as docu Card Reports system reviewed and no additional complaints, except as docu Resp Reports system reviewed and no additional complaints, except as docu GI Reports system reviewed and no additional complaints, except as docu, Reports nausea Reports system reviewed and no additional complaints, except as docu Musc Reports system reviewed and no additional complaints, except as docu Exam Const General: cooperative, healthy appearing, comfortable, anxious HENMT Head: normal to inspection Nose: external nose normal Face and sinus: normal facial exam Neck Neck: normal visual inspection, full ROM, no lymphadenopathy Thyroid: thyroid normal Chest Chest palpation & inspection: normal inspection of the chest Resp Effort & Inspection: normal respiratory effort GI Inspection: normal to inspection Palpation: soft, other (gravid uterus) Other: vertex A and transverse B Other: Cervical Exam: Extrem General: pedal edema 30 yo @ 38 weeks with twins plan LTCS for malpresentation, Results POC Urinalysis 2 Dip (Clinic) Office Urine Glucose Negative Last Edit by Solange Ureña on 04/04/20 15:3 7 Office Urine Protein Negative Last Edit by Solange Ureña on 04/04/20 15:3 7 Assessment & Plan Orders Orders: POC Urinalysis 2 Dip (Clinic) Today Coding Level of Care Code OB Routine
[2020-04-10] MEDS: Lactated Ringers 1,000 ML 999 ML IV (05:15)
[2020-04-10] MEDS: Acetaminophen 500 MG Tablet 1000 MG PO ×3 (05:58→17:49)
[2020-04-10 06:09] LABS: Hematocrit 36.3 % (37-47); Hemoglobin 12.2 g/dL (12.0-15.0); Mean Corp Hgb Conc 33.6 g/dL (32-36); Mean Corpuscular Hgb 30.6 pg (27.0-32.0); Mean Platelet Vol. 12.8 fl (6.2-12.0); Platelet Count 181 K/mm3 (150-450); RBC Distribution Width CV 13.9 % (11.6-14.6); RBC Distribution Width SD 45.7 fl (35.1-43.9); Red Blood Count 3.99 M/mm3 (4.2-5.4)
[2020-04-10] MEDS: Lactated Ringers 1,000 ML 150 ML IV (06:23)
[2020-04-10 06:51] LABS: Absolute Lymphocyte Count 1.35 X10^3/uL (0.83-4.51); Absolute Neutrophil Count 6.1 X10^3/uL (2.0-7.7); Basophil# 0.02 X10^3/uL; Basophil% 0.3 % (0-1); Eosinophil# 0.09 X10^3/uL; Eosinophils% 1.1 % (0-5); Hematocrit 36.5 % (37-47); Hemoglobin 12.2 g/dL (12.0-15.0); Lymphocyte # 1.35 X10^3/ul (4.0); Lymphocyte % 16.9 % (19-41); Mean Corp Hgb Conc 33.4 g/dL (32-36); Mean Corpuscular Hgb 30.5 pg (27.0-32.0); Mean Corpuscular Volume 91.3 fL (81-99); Monocyte# 0.37 X10^3/uL; Monocyte% 4.6 % (0-10); NRBC Flagged by Analyzer 0 % (0-5); Neutrophil % 76.3 % (47-70); Platelet Count 183 K/mm3 (150-450); RBC Distribution Width SD 46.3 fl (35.1-43.9)
[2020-04-10] MEDS: Sodium Citrate/Citric Acid 30 ML UDC PO (07:04)
[2020-04-10] MEDS: Cefazolin 2 GM in 0.9% Normal Saline 100 ML IV (07:23)
--- NOTE | 2020-04-10 07:31 | PCM.OPRPT ---
Problem List (1) 37 weeks gestation of Status: Acute Comment: covid test ordered- scheduled for 04/05/2020 0935 (2) Abnormal glucose affecting Status: Acute Comment: 3gtt normal (3) Anxiety Status: Acute Comment: currently on Celexa, encouraged counseling (4) Asthma Status: Acute Comment: mild intermittent controlled. 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 (7) Dizygotic twin Status: Acute Comment: fraternal twins Female/Female growth [id number]; follow up anatomy/nl, deliver @ 38 wks csection 04/10/20 (8) Influenza vaccine administered Status: Acute Comment: 01/10/2020 (9) Lab test negative for COVID-19 virus Status: Acute Comment: 04/08/2020 (10) Obesity affecting Status: Acute Comment: nl glucola at [facility], encourage healthy weight gain (11) Polydactyly of right hand Status: Acute Comment: right finger (12) Polyhydramnios Status: Acute Comment: twin B MVP 9.0- GCT given earlier, 02/07 US 8.0cm, 03/05 US poly resolved (13) Status: Acute Qualifiers: Comment: NIPT low risk and carrier- neg . anatomy reviewed NL (14) Supervision of high risk , antepartum Status: Acute Comment: PRR NAVA 04/23/19 girl Rubi girl Katharine ROWENA Gatica (15) Trichimoniasis Status: Acute Comment: Treated 09/27/19. Repeat rapid next visit in november (16) Uterine atony, , without hemorrhage Status: Acute Delivery Classification: Scheduled Final NAVA: 04/23/20 Gestational age: 38 Weeks and 1 Days principal data architect: Brenda Vazquez Type of Anesthesia:: Spinal Special Medications: methergine hemabate cytotec Implants Used: none Date of Procedure: 04/10/20 Pre-Operative Diagnosis: twins vtx/transverse Post-Operative Diagnosis: same Description of Procedure: Spinal anesthesia was placed without difficulty. Mills catheter was placed. The patient was placed in the dorsal supine position with leftward tilt. Patient was prepped and draped in the normal sterile fashion. Pfannenstiel skin incision was made with the scalpel and carried through to the underlying layer of fascia with the scalpel. Fascia was nicked in the midline and the incision extended laterally. The rectus bellies were dissected off superiorly and inferiorly with out complication both sharply and bluntly. The peritoneum was entered digitally. The incision was stretched and a low transverse uterine incision was made with the scalpel. The 's head was delivered atraumatically followed by the anterior and posterior shoulders without complication the rest of the infant delivered. The cord was clamped and cut and the infant was handed off to awaiting nurse. the second baby was noted to be converted to vertex and delivered after membranes were ruptured for clear fluid and head followed by anterior and posterior shoulders and the rest of the delivered. The placenta was delivered spontaneously immediately following and was noted to be intact and have a three-vessel cord. The uterus was exteriorized cleared of all clots and debris, and the incision was closed in a double layer closure using #1 Monocryl. The ovaries and fallopian tubes were noted to be within normal limits. Uterus was noted to be boggy and therefore bimanual massage and uterotonic agents were given. The uterus was returned to the maternal abdomen and gutters were cleared of all clots and debris. The peritoneum was closed with 3-0 Monocryl in a running fashion. Gloves were changed prior to fascial closure. Fascia was closed with 0 PDS in a running fashion. Subcutaneous tissue was copiously irrigated and the skin was closed with 3-0 Monocryl in a subcuticular fashion. Mepilex dressing was applied without complication. Patient was taken to recovery in stable condition. It was discussed with the patient that based on the clinical information obtained during this encounter, combined with her history, at this time I would recommend vaginal or cesareans for future deliveries if further pregnancies are desired. Amniotic Membrane Rupture Type: Artificial Amniotic Fluid Description: Clear Placenta Disposition: [facility] Drain: Mills to straight drain Cord Entanglement: None Esitmated Blood Loss (ml): 900 Gender: Female Delayed cord clamping: Yes Antibiotic Given: Ancef 2 grams IV x1 Pt instructed on risks of surgery: Bleeding, Anesthesia Risks, Infection, Need for Future C-Sections, Injury to surrounding structure(s) including bowel and bladder Complications: None - Admit VTE Documentation VTE Present on Admission: No VTE Mechan Device Prophylaxis: SCD's Baby B - Information Amniotic Membrane Rupture Type: Artificial Presentation: Vertex - Operative Information Cord Entanglement: None Cord Vessel Description: 3 Vessels B gender: Female Multi Select Codes - Urinary/Genital Urinary/Genital CPT Codes: 02170 delivery+ Care([facility]) - twins
[2020-04-10] MEDS: miSOPROStol 200 MCG Tablet 1000 MCG RECTAL (08:27)
[2020-04-10 08:41] LABS: Bedside Glucose 56 mg/dL (70-110)
[2020-04-10] MEDS: Oxytocin 30 units/NS 500 ml 30 UNITS/500 ML IV.SOLN 167 UNITS IV (09:38)
[2020-04-10] MEDS: HYDROmorphone 1 MG/ML Syringe IV ×2 (10:28→13:32)
[2020-04-10] MEDS: Citalopram 20 MG Tablet PO (11:43)
[2020-04-10] MEDS: Prenatal Vits Tablet 1 TABLET PO (11:43)
[2020-04-10 12:20] LABS: Pathology Specimen OB SEE PATHOLOGY REPORT
[2020-04-10] MEDS: Lactated Ringers 1,000 ML 100 ML IV (12:36)
[2020-04-10] MEDS: Ketorolac 30 MG/ML Syringe IV ×2 (14:07→20:02)
[2020-04-10] MEDS: oxyCODONE 5 MG Tablet PO (16:09)
[2020-04-10] MEDS: 0.9% Saline Lock 10 ML Syringe IV ×2 (17:52→20:03)
[2020-04-10] MEDS: Enoxaparin 40 MG/0.4 ML Syringe SC (20:02)
--- NOTE | 2020-04-10 22:35 | NURSING ---
incentive spirometer given to patient. this RN explaining proper usage and technique. pt educated on frequency of when to use the spirometer. pt verbalizes understanding.
[2020-04-11] MEDS: Acetaminophen 500 MG Tablet 1000 MG PO ×4 (00:01→17:54)
[2020-04-11 00:03] VITALS: BP 108/54; PULSE 75; RESP 16; TEMP 36.8
[2020-04-11] MEDS: oxyCODONE 5 MG Tablet PO ×2 (01:19→22:11)
[2020-04-11] MEDS: Ketorolac 30 MG/ML Syringe IV ×2 (01:30→09:06)
[2020-04-11] MEDS: 0.9% Saline Lock 10 ML Syringe IV ×2 (01:30→09:08)
[2020-04-11 03:12] LABS: Hematocrit 33.3 % (37-47); Hemoglobin 10.9 g/dL (12.0-15.0); Mean Corp Hgb Conc 32.7 g/dL (32-36); Mean Corpuscular Volume 91.7 fL (81-99); Mean Platelet Vol. 11.9 fl (6.2-12.0); Platelet Count 156 K/mm3 (150-450); RBC Distribution Width CV 13.8 % (11.6-14.6); Red Blood Count 3.63 M/mm3 (4.2-5.4); White Blood Count 9.4 K/mm3 (4.4-11.0)
[2020-04-11 04:45] VITALS: BP 108/43; PULSE 76; RESP 16; TEMP 36.7
[2020-04-11] MEDS: Enoxaparin 40 MG/0.4 ML Syringe SC ×2 (08:51→20:17)
[2020-04-11 08:59] VITALS: BP 115/48; PULSE 80; RESP 18; TEMP 36.8; O2SAT 97
--- NOTE | 2020-04-11 09:19 | PN.OBGYN_ITS ---
Patient Problems: Active and Suspected Problems (Last Reviewed 04/04/20 @ 15:34 by Solange Ureña) Uterine atony, , without hemorrhage (Acute) Lab test negative for COVID-19 virus (Acute) 04/08/2020 37 weeks gestation of (Acute) covid test ordered- scheduled for 04/05/2020 0935 Polydactyly of right hand (Acute) right finger Influenza vaccine administered (Acute) 01/10/2020 Abnormal glucose affecting (Acute) 3gtt normal Polyhydramnios (Acute) twin B MVP 9.0- GCT given earlier, 02/07 US 8.0cm, 03/05 US poly resolved Atypical squamous cell changes of undetermined significance (ASCUS) on cervical cytology with positive high risk human papilloma virus (HPV) (Acute) h/o SEAN 1, plan colp Dizygotic twin (Acute) fraternal twins Female/Female growth [id number]; follow up anatomy/nl, deliver @ 38 wks csection 04/10/20 Trichimoniasis (Acute) Treated 09/27/19. Repeat rapid next visit in november (Acute) NIPT low risk and carrier- neg . anatomy reviewed NL Obesity affecting (Acute) nl glucola at [facility], encourage healthy weight gain Supervision of high risk , antepartum (Acute) PRR NAVA 04/23/19 girl Rubi girl Katharine Gatica Asthma (Acute) mild intermittent controlled. albuterol PRN Anxiety (Acute) currently on Celexa, encouraged counseling SEAN I (cervical intraepithelial neoplasia I) (Acute) 2016, 2017, continue pap annually normal pap and hpv in 2019 09/2019 ASCUS with positive HPV/colp sched. Subjective: Patient doing well without complaints. Tolerating PO. Ambulating and voiding without difficulty. feeding well. Denies chest pain, shortness of breath, calf pain/swelling, fevers, chills, lightheadedness. - Physical Exam Vitals/I&O's: Vital Signs Temp Pulse Resp BP Pulse Ox 98.3 F 80 18 115/48 L 97 04/11/20 08:59 04/11/20 08:59 04/11/20 08:59 04/11/20 08:59 04/11/20 08:59 Oxygen Delivery Method Room Air Weight: 256 lb Body Mass Index (BMI) 50.0 Intake and Output for Last 24 Hours 04/09/20 04/10/20 04/11/20 23:59 23:59 23:59 Intake Total 5515.83 / 5515.83 800 / 800 Output Total 150 / 150 1000 / 1000 Balance 5365.83 / 5365.83 -200 / -200 Laboratory Results 04/11/20 03:04: WBC 9.4, RBC 3.63 L, Hgb 10.9 L, Hct 33.3 L, MCV 91.7, MCH 30.0, MCHC 32.7, RDW Std Deviation 46.0 H, RDW Coeff of Prema 13.8, Plt Count 156, MPV 11.9 Current Medications Acetaminophen (Acetaminophen 500 Mg Tablet) 1,000 mg PO Q6H [facility] Last Admin: 04/11/20 06:16 Dose: 1,000 mg Documented by: Bisacodyl (Bisacodyl 10 Mg Suppository) 10 mg RECTAL UD PRN PRN Reason: If no BM Citalopram Hydrobromide (Citalopram 20 Mg Tablet) 20 mg PO DAILY [facility] Last Admin: 04/10/20 11:43 Dose: 20 mg Documented by: Enoxaparin Sodium (Enoxaparin 40 Mg/0.4 Ml Syringe) 40 mg SC BID@0800,1999 [facility] Last Admin: 04/11/20 08:51 Dose: 40 mg Documented by: Hydrocortisone (Hydrocortisone 2.5% Crm) 1 applic TOPICAL TID PRN PRN; Protocol PRN Reason: Discomfort Hydromorphone HCl (Hydromorphone 1 Mg/Ml Syringe) 0.5 - 1.5 mg IV Q3H PRN PRN PRN Reason: Pain Score 4-10 Stop: 04/12/20 10:04 Last Admin: 04/10/20 13:32 Dose: 0.5 mg Documented by: Lactated Ringer's () 1,000 mls @ 100 mls/hr IV .Q10H [facility] Last Admin: 04/11/20 06:41 Dose: Not Given Documented by: Ibuprofen (Ibuprofen 600 Mg Tablet) 600 mg PO Q6H [facility] Methylergonovine Maleate (Methylergonovine 0.2 Mg/Ml Ampul) 0.2 mg IM X1 PRN PRN Reason: Uterine Atony Methylergonovine Maleate (Methylergonovine 0.2 Mg Tablet) 0.2 mg PO 4X/DAY [facility] Stop: 04/11/20 10:04 Last Admin: 04/10/20 22:27 Dose: 0.2 mg Documented by: Ondansetron HCl (Ondansetron 4 Mg/2 Ml Vial) 4 mg IV Q4H PRN PRN PRN Reason: Nausea Oxycodone HCl (Oxycodone 5 Mg Tablet) 5 - 10 mg PO Q4H PRN PRN PRN Reason: Pain Score 4-10 Last Admin: 04/11/20 01:19 Dose: 10 mg Documented by: Multivit/Folic Acid/Iron ( Vits Tablet) 1 tablet PO DAILY@1200 [facility] Last Admin: 04/10/20 11:43 Dose: 1 tablet Documented by: Prochlorperazine Edisylate (Prochlorperazine 10 Mg/2 Ml Vial) 10 mg IV Q6H PRN PRN PRN Reason: NAUSEA Senna/Docusate Sodium (Senna/Docusate Sodium 1 Tablet) 0 tablet PO DAILY [facility] Simethicone (Simethicone 80 Mg Tablet) 80 mg PO PCHS PRN PRN Reason: Indigestion/stomach pain Sodium Chloride (0.9% Saline Lock 10 Ml Syringe) 5 - 15 ml IV UD PRN PRN Reason: SALINE FLUSH Last Admin: 04/11/20 09:08 Dose: 10 ml Documented by: Medical Necessity - Tobacco Use Smoking Status: Former smoker Assessment/Plan All Active Problems (Last Reviewed 04/04/20 @ 15:34 by Solange Ureña) Uterine atony, , without hemorrhage (Acute) Lab test negative for COVID-19 virus (Acute) 37 weeks gestation of (Acute) Polydactyly of right hand (Acute) Influenza vaccine administered (Acute) Abnormal glucose affecting (Acute) Polyhydramnios (Acute) Atypical squamous cell changes of undetermined significance (ASCUS) on cervical cytology with positive high risk human papilloma virus (HPV) (Acute) Dizygotic twin (Acute) Trichimoniasis (Acute) (Acute) Obesity affecting (Acute) Supervision of high risk , antepartum (Acute) Asthma (Acute) Anxiety (Acute) SEAN I (cervical intraepithelial neoplasia I) (Acute) Decreased movement (Resolved) Folliculitis (Resolved) Recurrent candidiasis of vagina (Resolved ~08/27/17) Tobacco use complicating (Resolved) Twin (Resolved) s/p LTCS PPD # 1 1. routine post care 2. breast feeding- support given 3. rh positive 4. rubella immune
--- NOTE | 2020-04-11 09:20 | DCINST_ITS ---
Discharge Diet: No Restrictions Discharge Activity: May Not Drive - for 2 weeks, May not drive while taking narcotic pain medications., May Shower, May Take a Tub Bath - in 7 days May resume sexual activity in: 4-6 weeks Lifting Restrictions: 20 pounds Additional Activity Instructions:: Nothing in the vagina for 4-6 weeks. You may return to work/school in 6 weeks. Call your doctor if your incision/area has: Continuous Slow Oozing, Sudden Increased Bleeding, Increased Pain/ Swelling, Increased Redness, Foul Smelling Discharge Call your doctor if you observe: Fever of 101 or Higher, Using more than one pad per hour - for 2 hours Suture Line Care: Avoid Pulling/Pushing, Avoid Pinching/Bending Cleanse incision/area with: Keep Dressing Clean & Dry Additional Instructions: If you experience any of the following, contact your healthcare provider. * Bleeding that soaks a pad every hour for 2 hours * Fever 100.4 or higher * Unrelieved incision or abdominal pain * Swelling, redness, discharge or bleeding from your incision or episiotomy site * Your incision begins to separate * Problems urinating (including inability to urinate or burning while urinating). * Visual changes * Severe headache * Flu-like symptoms * Pain or redness in one of both of your breasts * Pain, warmth, tenderness or swelling in your legs, especially the calf area * Frequent nausea and vomiting * Symptoms of depression or anxiety If you experience any of the following, call 911 or go to the nearest Emergency Room. * Chest pain * Problems breathing * Seizure activity * Partial or complete paralysis of a body part, slurred speech, weakness or drooping of the face, or a sudden inability to walk or hold your balance Allergies/Adverse Reactions: Allergies No Known Allergies Allergy (Verified 04/04/20 15:33) Medications to take at Discharge Citalopram [Celexa] 20 mg PO DAILY 05/12/19 vitamin#30 30 mg iron-10 mg iron-folic acid 1 mg-omg3 capsule 1 cap PO DAILY 04/04/20 Aspirin [Aspirin, Baby] 81 mg PO DAILY@0800 04/10/20 Naproxen [Naprosyn] 250 - 500 mg PO Q8H PRN PRN #30 tab 04/11/20 Oxycodone HCl/Acetaminophen [Percocet 5-325] 1 - 2 tablet PO Q6H PRN PRN 7 Days #28 tablet 04/11/20 The following prescriptions were given: Naproxen [Naprosyn] 250 - 500 mg PO Q8H PRN PRN #30 tab PRN Reason: MILD PAIN Transmission Status: Pending to [facility] Oxycodone HCl/Acetaminophen [Percocet 5-325] 1 - 2 tablet PO Q6H PRN PRN 7 Days #28 tablet PRN Reason: Moderate-Severe pain Transmission Status: Sent to [facility] Follow-Up: Call to make an appointment with your doctor for an incision check in 1-2 weeks. You will also need a 6 week post- follow up appointment. Test results from this visit will be discussed in further detail at your follow- up appointment, if applicable. Please Follow Up With: Jada Alves MD - Call to make an appointment for an incision check in 1-2 [phone] When: You will need a post- check in 6 weeks. Primary Care Physician: Coral Garcia MD [Primary Care Provider] -
[2020-04-11] MEDS: Senna/Docusate Sodium 1 Tablet PO (10:00)
[2020-04-11] MEDS: Citalopram 20 MG Tablet PO (10:00)
[2020-04-11] MEDS: Prenatal Vits Tablet 1 TABLET PO (11:49)
[2020-04-11 14:00] VITALS: BP 132/73; PULSE 79; RESP 18; TEMP 36.6
[2020-04-11] MEDS: Ibuprofen 600 MG Tablet PO ×2 (14:47→20:18)
--- NOTE | 2020-04-11 16:20 | CASEMGMT ---
Social Work Brief Assessment Labor and Delivery Unit Patient Address: [address] [place] [address] Rd[address] [place], [place] [address] Phone number: [phone] Date of Referral/Notification: 04/10/2020 Time of Referral: 1008 Referred By: Dr. Dickey Date of Intervention: 04/11/2020 Time of Intervention: 1500 Reason for Referral: Maternal history of anxiety Informant: Medical record and mother of baby (MOB) Marlena Landa. History: BEN is a 30-year-old single female who is 1 para 0 now 2 after delivering twin girls. Baby 1 is Rubi, who weighed 6 pounds 1 ounce at . Apgars 8 and 9 at 1 and 5 minutes of life respectively. Baby #2 is Katharine who weighed 5 pounds 2 ounces at with Apgars 9 and 9. care with this started at 10 weeks and normal thereafter. Baby Rubi was transferred to the [facility] special care nursery shortly after and then eventually onto [facility] due to breathing difficulty. Twins delivered at 38 weeks gestation. Both babies were born with polydactyly on their their hands. BEN reports that the father of baby (FOB) also has polydactyly as well as the FOB's oldest son. The FOB is reported as a man by the name of En Jha who is -[place] and whom the MOB has known for 15 years. No extended romantic relationship with this man. The FOB does reportedly have 5 other children. 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 No concerns with learning comprehension issues. BEN is a former tobacco smoker but not currently. Denies any history of drug use history. Maternal drug screen was negative on 2019. BNE does have a history of anxiety disorder and is treated with Celexa. Assessment: BEN reports she moved in with her parents during this for some additional support in the . And plans to stay in his home for at least a year. MOB reports adequate support from her parents. BEN reports to have all needed supplies to care for 2 babies. BEN is uncertain on the level of involvement the FOB will have, but does report plan to seek child support. BEN admits that she is having some anxiety now about going to sleep in light of the breathing difficulty a baby Rubi had, and worry that this may also happen to baby Katharine. MOB endorses history of anxiety, and that getting outside and also exercising are both helpful. Emotional support and supportive listening provided to MOB this date. FOB expressed thanks for this speech writer stopping by and checking in. Provided MOB with a [facility] resource list and also information on mood and anxiety disorders. MOB agreed to have a help me grow referral. Plan: MOB will discharge home when medically stable along with baby Katharine. MOB plans to go to [facility] as soon as able. MOB made aware that social work is available also at [facility], and will likely follow-up with MOB at some point. No further needs requested or indicated. -XI Espinal, TULIO *Information documented in this assessment generated with [employer]*
[2020-04-11 20:20] VITALS: BP 101/63; PULSE 80; RESP 18; TEMP 36.6; O2SAT 97
[2020-04-12] MEDS: Acetaminophen 500 MG Tablet 1000 MG PO ×4 (00:19→22:37)
[2020-04-12 01:42] VITALS: BP 115/58; PULSE 75; RESP 18; TEMP 36.7; O2SAT 98
[2020-04-12] MEDS: Ibuprofen 600 MG Tablet PO ×4 (02:06→20:02)
[2020-04-12] MEDS: Enoxaparin 40 MG/0.4 ML Syringe SC ×2 (08:51→20:02)
[2020-04-12] MEDS: Senna/Docusate Sodium 1 Tablet PO (08:52)
[2020-04-12] MEDS: Prenatal Vits Tablet 1 TABLET PO (08:52)
[2020-04-12 08:55] VITALS: BP 112/57; PULSE 80; RESP 18; TEMP 36.8; O2SAT 100
--- NOTE | 2020-04-12 09:35 | PN.OBGYN_ITS ---
Patient Problems: Active and Suspected Problems (Last Reviewed 04/04/20 @ 15:34 by Solange Ureña) Uterine atony, , without hemorrhage (Acute) Lab test negative for COVID-19 virus (Acute) 04/08/2020 37 weeks gestation of (Acute) covid test ordered- scheduled for 04/05/2020 0935 Polydactyly of right hand (Acute) right finger Influenza vaccine administered (Acute) 01/10/2020 Abnormal glucose affecting (Acute) 3gtt normal Polyhydramnios (Acute) twin B MVP 9.0- GCT given earlier, 02/07 US 8.0cm, 03/05 US poly resolved Atypical squamous cell changes of undetermined significance (ASCUS) on cervical cytology with positive high risk human papilloma virus (HPV) (Acute) h/o SEAN 1, plan colp Dizygotic twin (Acute) fraternal twins Female/Female growth [id number]; follow up anatomy/nl, deliver @ 38 wks csection 04/10/20 Trichimoniasis (Acute) Treated 09/27/19. Repeat rapid next visit in november (Acute) NIPT low risk and carrier- neg . anatomy reviewed NL Obesity affecting (Acute) nl glucola at [facility], encourage healthy weight gain Supervision of high risk , antepartum (Acute) PRR ANVA 04/23/19 girl Rubi girl Katharine GUAMAN En Asthma (Acute) mild intermittent controlled. albuterol PRN Anxiety (Acute) currently on Celexa, encouraged counseling SEAN I (cervical intraepithelial neoplasia I) (Acute) 2016, 2017, continue pap annually normal pap and hpv in 2019 09/2019 ASCUS with positive HPV/colp sched. Subjective: Patient doing well without complaints. Tolerating PO. Ambulating and voiding without difficulty. feeding well. Denies chest pain, shortness of breath, calf pain/swelling, fevers, chills, lightheadedness. - Physical Exam Vitals/I&O's: Vital Signs Temp Pulse Resp BP Pulse Ox 98.3 F 80 18 112/57 L 100 04/12/20 08:55 04/12/20 08:55 04/12/20 08:55 04/12/20 08:55 04/12/20 08:55 Oxygen Delivery Method Room Air Weight: 256 lb Body Mass Index (BMI) 50.0 Intake and Output for Last 24 Hours 04/10/20 04/11/20 04/12/20 23:59 23:59 23:59 Intake Total 5515.83 / 5515.83 800 / 800 Output Total 150 / 150 1000 / 1000 Balance 5365.83 / 5365.83 -200 / -200 General: Alert, Oriented x3 Current Medications Acetaminophen (Acetaminophen 500 Mg Tablet) 1,000 mg PO Q6H [facility] Last Admin: 04/12/20 06:24 Dose: 1,000 mg Documented by: Bisacodyl (Bisacodyl 10 Mg Suppository) 10 mg RECTAL UD PRN PRN Reason: If no BM Citalopram Hydrobromide (Citalopram 20 Mg Tablet) 20 mg PO DAILY [facility] Last Admin: 04/11/20 10:00 Dose: 20 mg Documented by: Enoxaparin Sodium (Enoxaparin 40 Mg/0.4 Ml Syringe) 40 mg SC BID@0800,2000 [facility] Last Admin: 04/12/20 08:51 Dose: 40 mg Documented by: Hydrocortisone (Hydrocortisone 2.5% Crm) 1 applic TOPICAL TID PRN PRN; Protocol PRN Reason: Discomfort Hydromorphone HCl (Hydromorphone 1 Mg/Ml Syringe) 0.5 - 1.5 mg IV Q3H PRN PRN PRN Reason: Pain Score 4-10 Stop: 04/12/20 10:04 Last Admin: 04/10/20 13:32 Dose: 0.5 mg Documented by: Ibuprofen (Ibuprofen 600 Mg Tablet) 600 mg PO Q6H [facility] Last Admin: 04/12/20 08:51 Dose: 600 mg Documented by: Methylergonovine Maleate (Methylergonovine 0.2 Mg/Ml Ampul) 0.2 mg IM X1 PRN PRN Reason: Uterine Atony Ondansetron HCl (Ondansetron 4 Mg/2 Ml Vial) 4 mg IV Q4H PRN PRN PRN Reason: Nausea Oxycodone HCl (Oxycodone 5 Mg Tablet) 5 - 10 mg PO Q4H PRN PRN PRN Reason: Pain Score 4-10 Last Admin: 04/11/20 22:11 Dose: 10 mg Documented by: Multivit/Folic Acid/Iron ( Vits Tablet) 1 tablet PO DAILY@1200 [facility] Last Admin: 04/12/20 08:52 Dose: 1 tablet Documented by: Prochlorperazine Edisylate (Prochlorperazine 10 Mg/2 Ml Vial) 10 mg IV Q6H PRN PRN PRN Reason: NAUSEA Senna/Docusate Sodium (Senna/Docusate Sodium 1 Tablet) 0 tablet PO DAILY [facility] Last Admin: 04/12/20 08:52 Dose: 1 tablet Documented by: Simethicone (Simethicone 80 Mg Tablet) 80 mg PO [facility] PRN PRN Reason: Indigestion/stomach pain Last Admin: 04/11/20 10:00 Dose: 80 mg Documented by: Medical Necessity - Tobacco Use Smoking Status: Former smoker Assessment/Plan All Active Problems (Last Reviewed 04/04/20 @ 15:34 by Solange Ureña) Uterine atony, , without hemorrhage (Acute) Lab test negative for COVID-19 virus (Acute) 37 weeks gestation of (Acute) Polydactyly of right hand (Acute) Influenza vaccine administered (Acute) Abnormal glucose affecting (Acute) Polyhydramnios (Acute) Atypical squamous cell changes of undetermined significance (ASCUS) on cervical cytology with positive high risk human papilloma virus (HPV) (Acute) Dizygotic twin (Acute) Trichimoniasis (Acute) (Acute) Obesity affecting (Acute) Supervision of high risk , antepartum (Acute) Asthma (Acute) Anxiety (Acute) SEAN I (cervical intraepithelial neoplasia I) (Acute) Decreased movement (Resolved) Folliculitis (Resolved) Recurrent candidiasis of vagina (Resolved ~08/27/17) Tobacco use complicating (Resolved) Twin (Resolved) s/p LTCS PPD # 2 1. routine post care 2. breast feeding- support given 3. rh positive 4. rubella immune
[2020-04-12] MEDS: Citalopram 20 MG Tablet PO (10:18)
[2020-04-12] MEDS: oxyCODONE 5 MG Tablet PO ×2 (10:23→18:31)
[2020-04-12 14:15] VITALS: BP 108/55; PULSE 79; RESP 16; TEMP 37; O2SAT 100
[2020-04-12 19:53] VITALS: BP 124/72; PULSE 74; RESP 16; TEMP 36.6
[2020-04-13] MEDS: oxyCODONE 5 MG Tablet PO ×3 (00:40→12:14)
[2020-04-13 01:39] VITALS: BP 129/71; PULSE 79; RESP 16; TEMP 36.8
[2020-04-13] MEDS: Ibuprofen 600 MG Tablet PO ×2 (01:45→07:52)
[2020-04-13] MEDS: Acetaminophen 500 MG Tablet 1000 MG PO ×2 (03:38→10:45)
[2020-04-13 07:50] VITALS: BP 126/69; PULSE 71; RESP 16; TEMP 36.8; O2SAT 100
[2020-04-13] MEDS: Enoxaparin 40 MG/0.4 ML Syringe SC (07:52)
--- NOTE | 2020-04-13 08:30 | PCM.PN.OB ---
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 Repeat rapid next visit in november (Acute) NIPT low risk and carrier- neg . anatomy reviewed NL Obesity affecting (Acute) nl glucola at [facility], encourage healthy weight gain Supervision of high risk , antepartum (Acute) PRR NAVA 04/23/19 girl Rubi girl Katharine Gatica Asthma (Acute) mild intermittent controlled. albuterol PRN Anxiety (Acute) currently on Celexa, encouraged counseling SEAN I (cervical intraepithelial neoplasia I) (Acute) 2016, 2017, continue pap annually normal pap and hpv in 2019 09/2019 ASCUS with positive HPV/colp sched. Subjective: Patient doing well without complaints. Tolerating PO. Ambulating and voiding without difficulty. Feeding well. Denies chest pain, shortness of breath, calf pain/swelling, fevers, chills, lightheadedness. Objective: Laboratory Tests 04/11/20 04/10/20 04/10/20 Range/Units 03:04 08:15 05:15 WBC 9.4 8.0 (4.4-11.0) K/mm3 RBC 3.63 L 3.99 L (4.2-5.4) M/mm3 Hgb 10.9 L 12.2 (12.0-15.0) g/dL Hct 33.3 L 36.3 L (37-47) % MCV 91.7 91.0 (81-99) fL MCH 30.0 30.6 (27.0-32.0) pg MCHC 32.7 33.6 (32-36) g/dL RDW Std Deviation 46.0 H 45.7 H (35.1-43.9) fl RDW Coeff of Prema 13.8 13.9 (11.6-14.6) % Plt Count 156 181 (150-450) K/mm3 MPV 11.9 12.8 H (6.2-12.0) fl Immature Gran % (Auto) (0.0-0.9) % Neut % (Auto) (47-70) % Lymph % (Auto) (19-41) % [place] % (Auto) (0-10) % Eos % (Auto) (0-5) % Baso % (Auto) (0-1) % Absolute Neuts (auto) (2.0-7.7) X10^3/uL Absolute Lymphs (auto) (0.83-4.51) X10^3/uL Nucleated RBC % (0-5) % POC Glucose 56 L (70-110) mg/dL Blood Type Antibody Screen 04/10/20 04/10/20 Range/Units 05:15 05:05 WBC 8.0 (4.4-11.0) K/mm3 RBC 4.00 L (4.2-5.4) M/mm3 Hgb 12.2 (12.0-15.0) g/dL Hct 36.5 L (37-47) % MCV 91.3 (81-99) fL MCH 30.5 (27.0-32.0) pg MCHC 33.4 (32-36) g/dL RDW Std Deviation 46.3 H (35.1-43.9) fl RDW Coeff of Prema 14.0 (11.6-14.6) % Plt Count 183 (150-450) K/mm3 MPV 13.0 H (6.2-12.0) fl Immature Gran % (Auto) 0.800 (0.0-0.9) % Neut % (Auto) 76.3 H (47-70) % Lymph % (Auto) 16.9 L (19-41) % [place] % (Auto) 4.6 (0-10) % Eos % (Auto) 1.1 (0-5) % Baso % (Auto) 0.3 (0-1) % Absolute Neuts (auto) 6.1 (2.0-7.7) X10^3/uL Absolute Lymphs (auto) 1.35 (0.83-4.51) X10^3/uL Nucleated RBC % 0 (0-5) % POC Glucose (70-110) mg/dL Blood Type O POSITIVE Antibody Screen NEGATIVE - Physical Exam Vitals/I&O's: Vital Signs Temp Pulse Resp BP Pulse Ox 98.2 F 71 16 126/69 H 100 04/13/20 07:50 04/13/20 07:50 04/13/20 07:50 04/13/20 07:50 04/13/20 07:50 Oxygen Delivery Method Room Air Weight: 256 lb Body Mass Index (BMI) 50.0 Intake and Output for Last 24 Hours 04/11/20 04/12/20 04/13/20 23:59 23:59 23:59 Intake Total 800 / 800 Output Total 1000 / 1000 Balance -200 / -200 General: Alert, Oriented x3, Cooperative, No apparent distress, Well developed, Well nourished HEENT: Atraumatic, PERRLA, EOMI, Normocephalic Oral: Moist Mucosa Neck: Supple, No JVD Lungs: Normal air movement Cardiovascular: Regular rate Abdomen: Soft, Non Tender, Non-Distended, Passing Flatus, - - incision c/d/i, fundus firm Extremities: No edema, No Calf Tenderness Neurological: Cranial nerves II-XII grossly intact, Neuro grossly intact Psych/Mental Status: Normal Affect, Appropriate Current Medications Acetaminophen (Acetaminophen 500 Mg Tablet) 1,000 mg PO Q6H ASIF Last Admin: 04/13/20 03:38 Dose: 1,000 mg Documented by: Bisacodyl (Bisacodyl 10 Mg Suppository) 10 mg RECTAL UD PRN PRN Reason: If no BM Citalopram Hydrobromide (Citalopram 20 Mg Tablet) 20 mg PO DAILY [facility] Last Admin: 04/12/20 10:18 Dose: 20 mg Documented by: Enoxaparin Sodium (Enoxaparin 40 Mg/0.4 Ml Syringe) 40 mg SC BID@0800,2000 [facility] Last Admin: 04/13/20 07:52 Dose: 40 mg Documented by: Hydrocortisone (Hydrocortisone 2.5% Crm) 1 applic TOPICAL TID PRN PRN; Protocol PRN Reason: Discomfort Ibuprofen (Ibuprofen 600 Mg Tablet) 600 mg PO Q6H [facility] Last Admin: 04/13/20 07:52 Dose: 600 mg Documented by: Methylergonovine Maleate (Methylergonovine 0.2 Mg/Ml Ampul) 0.2 mg IM X1 PRN PRN Reason: Uterine Atony Ondansetron HCl (Ondansetron 4 Mg/2 Ml Vial) 4 mg IV Q4H PRN PRN PRN Reason: Nausea Oxycodone HCl (Oxycodone 5 Mg Tablet) 5 - 10 mg PO Q4H PRN PRN PRN Reason: Pain Score 4-10 Last Admin: 04/13/20 07:51 Dose: 5 mg Documented by: Multivit/Folic Acid/Iron ( Vits Tablet) 1 tablet PO DAILY@1200 [facility] Last Admin: 04/12/20 08:52 Dose: 1 tablet Documented by: Prochlorperazine Edisylate (Prochlorperazine 10 Mg/2 Ml Vial) 10 mg IV Q6H PRN PRN PRN Reason: NAUSEA Senna/Docusate Sodium (Senna/Docusate Sodium 1 Tablet) 0 tablet PO DAILY [facility] Last Admin: 04/12/20 08:52 Dose: 1 tablet Documented by: Simethicone (Simethicone 80 Mg Tablet) 80 mg PO [facility] PRN PRN Reason: Indigestion/stomach pain Last Admin: 04/11/20 10:00 Dose: 80 mg Documented by: Medical Necessity - Tobacco Use Smoking Status: Former smoker Assessment/Plan All Active Problems (Last Reviewed 04/04/20 @ 15:34 by Solange Ureña) Uterine atony, , without hemorrhage (Acute) Lab test negative for COVID-19 virus (Acute) 37 weeks gestation of (Acute) Polydactyly of right hand (Acute) Influenza vaccine administered (Acute) Abnormal glucose affecting (Acute) Polyhydramnios (Acute) Atypical squamous cell changes of undetermined significance (ASCUS) on cervical cytology with positive high risk human papilloma virus (HPV) (Acute) Dizygotic twin (Acute) Trichimoniasis (Acute) (Acute) Obesity affecting (Acute) Supervision of high risk , antepartum (Acute) Asthma (Acute) Anxiety (Acute) SEAN I (cervical intraepithelial neoplasia I) (Acute) Decreased movement (Resolved) Folliculitis (Resolved) Recurrent candidiasis of vagina (Resolved ~08/27/17) Tobacco use complicating (Resolved) Twin (Resolved) s/p LTCS PPD # 3 1. routine post care 2. breast feeding- support given 3. rh positive 4. rubella immune
[2020-04-13] MEDS: Citalopram 20 MG Tablet PO (10:45)
[2020-04-13] MEDS: Senna/Docusate Sodium 1 Tablet PO (10:45)
[2020-04-13] MEDS: Prenatal Vits Tablet 1 TABLET PO (10:45)
[2020-04-13 12:14] VITALS: BP 137/68; PULSE 79; RESP 16; TEMP 36.5; O2SAT 100
--- NOTE | 2020-04-15 08:24 | PCM.DC.BLA ---
Discharge Summary Date of Admission: 04/10/20 Date of Discharge: 04/13/20 Summary: Patient underwent section with routine recovery and return of bowel and bladder function. Ambulating, voiding, and tolerating PO. Stable for discharge home POD#3. 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 Repeat rapid next visit in november (Acute) NIPT low risk and carrier- neg . anatomy reviewed NL Obesity affecting (Acute) nl glucola at [facility], encourage healthy weight gain Supervision of high risk , antepartum (Acute) PRR NAVA 04/23/19 girl Rubi girl Katharine ROWENA Gatica Asthma (Acute) mild intermittent controlled. albuterol PRN Anxiety (Acute) currently on Celexa, encouraged counseling SEAN I (cervical intraepithelial neoplasia I) (Acute) 2016, 2018, continue pap annually normal pap and hpv in 2019 09/2019 ASCUS with positive HPV/colp sched. - Physical Exam Vitals/I&O's: Vital Signs Temp Pulse Resp BP Pulse Ox 97.7 F L 79 16 137/68 H 100 04/13/20 12:14 04/13/20 12:14 04/13/20 12:14 04/13/20 12:14 04/13/20 12:14 Oxygen Delivery Method Room Air Weight: 256 lb Body Mass Index (BMI) 50.0
== END 2020-04-13 12:35 | disposition home or self-care (01) | DRG 540 ==
PROVIDERS: Admitting Provider Obstetrics & Gynecology; PCP Family Medicine; Referring Provider Obstetrics & Gynecology; Visit Provider Obstetrics & Gynecology
PROC: 10D00Z1 Extraction of Products of Conception, Low, Open Approach (ICD-10-PCS; CPT 59514; principal; 2020-04-10 07:15)
DX: O30.043 Twin pregnancy, dichorionic/diamniotic, third trimester (principal); O40.3XX2 Polyhydramnios, third trimester, fetus 2; O32.2XX2 Maternal care for transverse and oblique lie, fetus 2; O75.89 Other specified complications of labor and delivery; O99.52 Diseases of the respiratory system complicating childbirth; J45.20 Mild intermittent asthma, uncomplicated; O99.344 Other mental disorders complicating childbirth; F41.9 Anxiety disorder, unspecified; O99.214 Obesity complicating childbirth; E66.9 Obesity, unspecified; Q69.9 Polydactyly, unspecified; Z79.82 Long term (current) use of aspirin; Z79.899 Other long term (current) drug therapy; Z87.891 Personal history of nicotine dependence; Z3A.38 38 weeks gestation of pregnancy; Z37.2 Twins, both liveborn
CPT/HCPCS: 82962; 85025; 85027; 86850; 86900; 86901; 88307; 99218; J7120; A4216; G0378; J2405

== ENCOUNTER 2020-09-20 22:19 | Observation (INO) | payer MEDICAID, SELFPAY ==
[2020-06-11 08:04] VITALS: BMI 44.0
[2020-09-20 21:20] VITALS: BMI 44.1
[2020-09-20 21:21] VITALS: BP 121/60; PULSE 100; RESP 18; TEMP 37.8; O2SAT 98
--- NOTE | 2020-09-20 21:54 | NURSING ---
Lab called and advised about stat CBC.
[2020-09-20 22:23] LABS: Hematocrit 40.1 % (37-47); Hemoglobin 12.8 g/dL (12.0-15.0); Mean Corp Hgb Conc 31.9 g/dL (32-36); Mean Corpuscular Hgb 28.7 pg (27.0-32.0); Mean Corpuscular Volume 89.9 fL (81-99); Mean Platelet Vol. 10.2 fl (6.2-12.0); Platelet Count 341 K/mm3 (150-450); RBC Distribution Width CV 13.4 % (11.6-14.6); RBC Distribution Width SD 44.2 fl (35.1-43.9); Red Blood Count 4.46 M/mm3 (4.2-5.4); White Blood Count 15.8 K/mm3 (4.4-11.0)
--- NOTE | 2020-09-20 22:27 | HP.PCM.OB_ITS ---
HPI - General General Date of Admission: 09/20/20 HPI Narrative SHAWN OVIEDO, is a 30 F who presents with abdominal pain. Patient reports that she started noticing mild cramping over the last few days. Reports that yesterday she noticed pain started to become more severe and was primarily in her suprapubic region. Reports that she went to work today even though she was having significant pain and developed pain so severe at work that she was unable to walk and it doubled her over. Reports that when pain was severe, it resulted in significant episodes of nausea and emesis. Her coworker took her to the emergency department for evaluation. Reports subjective fevers. Denies constipation, diarrhea. Denies pain or burning with urination. Does report recent unprotected sex and is not in a monogamous relationship at this time. Does endorse increased vaginal discharge that occasionally gushes. Reports pain is diffuse but is primarily in her suprapubic region. Denies relief with Motrin and Tylenol. PFSH PFSH Medical History Abnormal Pap smear of cervix Anxiety Asthma SEAN I (cervical intraepithelial neoplasia I) Depression IBS (irritable bowel syndrome) Smoker Home Medications levonorgestrel 20.1 mcg/24 hrs (6 yrs) 52 mg intrauterine device 1 device INTRA- UTER ONCE 06/11/20 [History Last Taken Unknown] buspirone 10 mg PO BID 09/20/20 [History Last Taken Unknown] citalopram [Celexa] 40 mg PO DAILY 09/20/20 [History Last Taken 09/20/20 07:50] Allergy/AdvReac Type Severity Reaction Status Date / Time shrimp AdvReac itchy Verified 09/20/20 21:27 throat & some swelling Family History Grandmother Diabetes Father Hypertension Grandfather Heart disease Grandmother Diabetes Surgical History History of colposcopy History of low transverse section Social History (Updated 06/11/20 @ 08:26 by Katie Potter NP, PERINATAL TECHNICIAN-C) adopted: No housing: apartment current occupational status: employed 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 [employer] pets and animals: Yes history of recent travel: No Smoking Status: Current some day smoker tobacco type: cigarettes second hand exposure: No alcohol intake: current details: occasionally- not while substance use type: does not use caffeine: Yes what type of physical activity do you participate in: other details: cardio frequency: 1-2 times per week seatbelt use: always do you feel safe at home: Yes additional social history: Single 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 Date Name GA/Weeks Outcome Route Bth Weight Gen Labor Lgth Anesthesia Del Locatn Provider FOB 04/10/20 Rubi 38 live - full term 6lbs 1oz Female [facility] 04/10/20 Katharine 38 live - full term 5lbs 2oz Female [facility] [place] Delivery Date: 04/10/20 Di Di twins polydactyly [facility] Radha Arvizu Delivery Date: 04/10/20 Di Di twins polydactyly [facility] Radha Arvizu ROS Constitutional Constitutional: Reports fatigue and fever(s) Cardiovascular Cardiovascular: Denies chest pain, dyspnea, lightheadedness or palpitations Respiratory/Chest Respiratory/Chest: Denies cough or dyspnea Gastrointestinal Gastrointestinal: Reports abdominal pain, nausea and vomiting; Denies constipation, cramping or diarrhea Genitourinary Genitourinary: Reports other Details: vaginal discharge ; Denies burning urination, difficulty urinating, dysuria or genital lesions Neurologic Neurologic: Reports headache(s); Denies weakness Vital Signs Vital Signs Vital Signs: 09/20/20 21:21 Temperature 100.1 F H Temperature Source Oral Pulse Rate 100 Respiratory Rate 18 Blood Pressure 121/60 H Blood Pressure Mean 80 Blood Pressure Source Monitor Blood Pressure Position Semi-Fowlers Blood Pressure Location Right Arm Pulse Ox 98 Oxygen Delivery Method Room Air Weight Weight: 225 lb 15.581 oz Body Mass Index (BMI) 44.1 Physical Exam Const alert, oriented x3, no apparent distress, average body habitus, healthy appearing and well nourished HEENT normocephalic and moist oral mucous membranes Head and Scalp: atraumatic Face and Sinus: normal facial exam Eyes PERRL and EOMs intact bilaterally Neck full ROM and no lymphadenopathy Resp normal respiratory effort, no retractions, no use of accessory muscles and clear to auscultation bilaterally Effort and Inspection: Negative for respiratory distress Cardio regular rate, regular rhythm, S1 normal heart sound and S2 normal heart sound GI soft to palpation and non-distended Palpation: tender other (diffuse but worst in LLQ and suprapubic region); Negative for guarding, rigid or mass external exam normal, appearance of the vagina normal and appearance of the cervix normal External Female Exam: normal appearance of the urethra; Negative for external swelling, external lesion or external laceration Speculum Exam - Vagina: vaginal discharge other (purulent); Negative for vaginal erythema, vaginal laceration, vaginal bleeding, vaginal mass, vaginal swelling or vaginal tenderness Speculum Exam - Cervix: IUD string present and cervical tenderness; Negative for cervical bleeding or cervical laceration Bimanual Exam - Vag & Uterus: normal vaginal palpation, cervical motion tenderness, cervical tenderness, uterine size normal, uterine shape normal and uterus tender Extremity normal to inspection and full ROM Skin no rashes or lesions noted Neuro no focal motor deficits and no sensory deficits noted Psych mental status grossly normal, affect normal, speech normal and activity/motor behavior normal Labs Labs Labs: Blood Type O POSITIVE Antibody Screen NEGATIVE Hct 40.1 % (37-47) Hgb 12.8 g/dL (12.0-15.0) Obstetrics US VZV IgG Antibody 3166 index (Immune >165) Rubella IgG Antibody 42.8 IU/mL Hep Bs Antigen Non-Reactive (Nonreactive) Neisseria gonorrhoeae DNA (MAHIN) Negative HIV 1&2 Antibody Non-Reactive (Nonreactive) C.trachomatis DNA (PCR) Negative (Negative) Glucose 1 Hr 50 gm 136 mg/dL (70-140) Group B Strep DNA Negative (Negative) Rhogam given: Yes Miscellaneous Test Assessment & Plan (1) PID (acute pelvic inflammatory disease): PLAN: Patient presents with suprapubic pain that is most consistent with pelvic inflammatory disease White blood cell count 14.7 in outside ER-repeat CBC ordered on admission Patient with temp 100.1 on admission, however feels extremely warm to the touch reports subjective fevers Patient with purulent vaginal discharge and significant cervical motion tenderness on exam Gonorrhea and Chlamydia and vaginal culture collected Patient does have IUD in place-we will leave in place while monitoring for clinical improvement, if patient not clinically improving will consider removal Ovarian cyst-hemorrhagic based on read at outside ER, if patient not clinically improving will consider repeating ultrasound to help determine if more consistent with tubo-ovarian abscess Cefotetan and doxycycline ordered Repeat CBC in the morning Plan of care discussed with patient who is agreeable (2) Ovarian cyst: QUALIFIERS: Laterality: left Qualified Code(s): N83.202 - Unspecified ovarian cyst, left side PLAN: 3.7 cm in greatest diameter left ovarian cyst on ultrasound in the ER Did have a small amount of free fluid in the cul-de-sac Normal blood flow on ultrasound Discussed with patient that this could be a hemorrhagic corpus luteum versus a tubo-ovarian abscess We will monitor pain and monitor for symptomatic improvement Charges/Coding Visit Charges OBSV E&M: 52178 Initial observation care L2
[2020-09-20] MEDS: Acetaminophen 500 MG Tablet 1000 MG PO (23:05)
[2020-09-20] MEDS: oxyCODONE 5 MG Tablet PO (23:05)
[2020-09-20] MEDS: 0.9% Saline Lock 10 ML Syringe IV (23:06)
[2020-09-20] MEDS: Doxycycline 100 MG CAPSULE PO (23:06)
[2020-09-20] MEDS: Lactated Ringers 1,000 ML 100 ML IV (23:06)
[2020-09-20] MEDS: busPIRone 5 MG Tablet 10 MG PO (23:06)
[2020-09-21] MEDS: Ketorolac 30 MG/ML Syringe IV ×4 (00:09→17:39)
[2020-09-21 03:30] VITALS: BP 108/50; PULSE 63; RESP 16; TEMP 36.3; O2SAT 98
[2020-09-21] MEDS: oxyCODONE 5 MG Tablet PO (04:07)
[2020-09-21 07:06] LABS: Absolute Lymphocyte Count 1.91 X10^3/uL (0.83-4.51); Absolute Neutrophil Count 8.3 X10^3/uL (2.0-7.7); Basophil# 0.05 X10^3/uL; Basophil% 0.5 % (0-1); Eosinophil# 0.04 X10^3/uL; Eosinophils% 0.4 % (0-5); Hematocrit 40.8 % (37-47); Hemoglobin 12.7 g/dL (12.0-15.0); Lymphocyte # 1.91 X10^3/ul (0.83-4.51); Lymphocyte % 17.6 % (19-41); Mean Corp Hgb Conc 31.1 g/dL (32-36); Mean Corpuscular Hgb 28.6 pg (27.0-32.0); Mean Corpuscular Volume 91.9 fL (81-99); Mean Platelet Vol. 10.5 fl (6.2-12.0); Monocyte# 0.53 X10^3/uL; Monocyte% 4.9 % (0-10); NRBC Flagged by Analyzer 0 % (0-5); Neutrophil # 8.31 X10^3/uL (2.7-7.7); Neutrophil % 76.2 % (47-70); Platelet Count 322 K/mm3 (150-450); RBC Distribution Width CV 13.4 % (11.6-14.6); RBC Distribution Width SD 45.6 fl (35.1-43.9); Red Blood Count 4.44 M/mm3 (4.2-5.4); White Blood Count 10.9 K/mm3 (4.4-11.0)
--- NOTE | 2020-09-21 07:19 | PCM.PN.OB ---
Subjective Subjective Patient seen and examined. Reports feeling much better. Reports pain is well controlled with Toradol and p.o. pain meds. No longer feeling subjective fevers. Denies nausea vomiting. Objective Data Objective Data Vital Signs: Vital Signs Temp Pulse Resp BP Pulse Ox 97.4 F L 63 16 108/50 L 98 09/21/20 03:30 09/21/20 03:30 09/21/20 03:30 09/21/20 03:30 09/21/20 03:30 Oxygen Delivery Method Room Air Weight: 225 lb 15.581 oz Body Mass Index (BMI) 44.1 Lab / Micro Data Result Diagrams: 09/21/20 06:38 09/21/20 06:38 Labs: Laboratory Results - last 24 hr 09/20/20 09/21/20 22:15 06:38 WBC 15.8 H 10.9 RBC 4.46 4.44 Hgb 12.8 12.7 Hct 40.1 40.8 MCV 89.9 91.9 MCH 28.7 28.6 MCHC 31.9 L 31.1 L RDW Std Deviation 44.2 H 45.6 H RDW Coeff of Prema 13.4 13.4 Plt Count 341 322 MPV 10.2 10.5 Immature Gran % (Auto) 0.400 Neut % (Auto) 76.2 H Lymph % (Auto) 17.[address] [place] % (Auto) 4.9 Eos % (Auto) 0.4 Baso % (Auto) 0.5 Absolute Neuts (auto) 8.3 H Absolute Lymphs (auto) 1.91 Nucleated RBC % 0 ROS Constitutional Constitutional: Denies fever(s) Cardiovascular Cardiovascular: Denies chest pain, dyspnea or lightheadedness Gastrointestinal Gastrointestinal: Reports abdominal pain; Denies constipation or diarrhea Neurologic Neurologic: Denies dizziness or headache(s) Physical Exam Const alert, oriented x3, no apparent distress, average body habitus, healthy appearing and well nourished HEENT normocephalic Head and Scalp: atraumatic Eyes PERRL and EOMs intact bilaterally Neck full ROM Lymph Lymphatic: no lymphadenopathy noted Resp normal respiratory effort, no retractions and no use of accessory muscles Cardio regular rate GI soft to palpation and non-distended GI Narrative: mildly TTP diffusely, improved from admission Auscultation: normoactive bowel sounds Extremity normal to inspection and no clubbing, cyanosis or edema Skin no rashes or lesions noted Neuro no focal motor deficits and no sensory deficits noted Psych mental status grossly normal, affect normal and speech normal Assessment & Plan (1) PID (acute pelvic inflammatory disease): PLAN: Patient on cefotetan and doxycycline since yesterday evening. White blood cell count on admission 15-decrease to 10 this morning Afebrile Vital signs stable Gonorrhea and Chlamydia still pending Discussed with patient that I would recommend 48 hours of IV antibiotics then can transition to p.o. If doing better, anticipate discharge to home tomorrow
[2020-09-21 07:36] LABS: ALB/GLOB Ratio 0.8 RATIO (0.9-2.4); AST(SGOT) 10 U/L (15-37); Alanine Aminotransfer ALT/SGPT 19 U/L (13-56); Albumin, Serum 2.9 g/dL (3.2-5.0); Alkaline Phosphatase 105 U/L (45-117); Anion Gap 4 (5-15); BUN 10 mg/dL (7-18); BUN/Creat Ratio 16.9 RATIO (10-20); Calcium,Total 8.6 mg/dL (8.5-10.1); Chloride 105 mmol/L (98-107); Creatinine, Serum 0.59 mg/dL (0.55-1.02); EST Glomerular Filtration Rate 127 mL/min (>60); Est Glom Filt Rate - Afr Amer 153 mL/min (>60); Estimated Creatinine Clearance 101.06 ml/min; Globulin 3.8 g/dL (2.2-4.2); Glucose 82 mg/dL (74-106); Potassium 3.6 mmol/L (3.5-5.1); Protein, Total 6.7 g/dL (6.4-8.2); Sodium Level 137 mmol/L (136-145)
[2020-09-21 10:09] VITALS: BP 98/51; PULSE 62; RESP 16; TEMP 36.6; O2SAT 98
[2020-09-21] MEDS: Doxycycline 100 MG CAPSULE PO ×2 (10:27→22:33)
[2020-09-21] MEDS: Citalopram 40 MG TABLET PO (10:27)
[2020-09-21] MEDS: Lactated Ringers 1,000 ML 100 ML IV ×2 (10:27→20:05)
[2020-09-21] MEDS: busPIRone 5 MG Tablet 10 MG PO ×2 (10:33→22:33)
[2020-09-21] MEDS: 0.9% Saline Lock 10 ML Syringe IV ×2 (12:00→17:40)
[2020-09-21 14:39] VITALS: BP 107/45; PULSE 65; RESP 16; TEMP 36.7; O2SAT 99
[2020-09-21 20:40] VITALS: BP 95/42; PULSE 83; RESP 16; TEMP 37.1; O2SAT 98
[2020-09-22] MEDS: Ketorolac 30 MG/ML Syringe IV ×3 (00:22→12:24)
[2020-09-22] MEDS: 0.9% Saline Lock 10 ML Syringe IV ×2 (00:22→06:09)
[2020-09-22 02:55] VITALS: BP 115/56; PULSE 73; RESP 16; TEMP 37; O2SAT 98
[2020-09-22] MEDS: Lactated Ringers 1,000 ML 100 ML IV (06:13)
[2020-09-22 08:44] VITALS: BP 116/50; PULSE 74; RESP 16; TEMP 37.1; O2SAT 94
[2020-09-22] MEDS: Citalopram 40 MG TABLET PO (09:19)
[2020-09-22] MEDS: Doxycycline 100 MG CAPSULE PO (09:19)
[2020-09-22] MEDS: busPIRone 5 MG Tablet 10 MG PO (09:19)
--- NOTE | 2020-09-22 10:55 | PCM.PN.OB ---
Subjective Subjective Patient seen and examined. Reports feeling much better. Denies pain at this time. Reports only has pain with movement and pain is just mild discomfort. Denies fevers or chills. Objective Data Objective Data Vital Signs: Vital Signs Temp Pulse Resp BP Pulse Ox 98.7 F 74 16 116/50 L 94 09/22/20 08:44 09/22/20 08:44 09/22/20 08:44 09/22/20 08:44 09/22/20 08:44 Oxygen Delivery Method Room Air Weight: 225 lb 15.581 oz Body Mass Index (BMI) 44.1 Intake & Output: Intake and Output for Last 24 Hours 09/20/20 09/21/20 09/22/20 23:59 23:59 23:59 Intake Total 2163.33 / 2163.33 1316.67 / 1316.67 Balance 2163.33 / 2163.33 1316.67 / 1316.67 Lab / Micro Data Result Diagrams: 09/21/20 06:38 09/21/20 06:38 Micro: Microbiology 09/20/20 22:12 Genital vaginal Gram Stain - Final 09/20/20 22:12 Genital vaginal Genital Culture - Preliminary G. vaginalis (Presumptive) ROS Constitutional Constitutional: Denies fever(s) Cardiovascular Cardiovascular: Denies chest pain, dyspnea or lightheadedness Gastrointestinal Gastrointestinal: Reports abdominal pain; Denies constipation or diarrhea Neurologic Neurologic: Denies dizziness or headache(s) Physical Exam Const alert, oriented x3, no apparent distress, average body habitus, healthy appearing and well nourished HEENT normocephalic Head and Scalp: atraumatic Eyes PERRL and EOMs intact bilaterally Neck full ROM Lymph Lymphatic: no lymphadenopathy noted Resp normal respiratory effort, no retractions and no use of accessory muscles Cardio regular rate GI soft to palpation, non-tender and non-distended Extremity normal to inspection and no clubbing, cyanosis or edema Skin no rashes or lesions noted Neuro no focal motor deficits and no sensory deficits noted Psych mental status grossly normal, affect normal and speech normal Assessment & Plan (1) PID (acute pelvic inflammatory disease): COMMENT: Admitted 09/20 through 09/22. Treated with IV antibiotics then transition to p.o. doxycycline and Flagyl PLAN: Patient doing well. Vital signs stable. Abdominal pain mostly resolved Leukocytosis had normalized yesterday Patient is status post 4 doses of IV cefotetan and p.o. doxycycline We will transition to doxycycline p.o. twice daily and Flagyl twice daily for the next 12 days to complete a 14-day course of antibiotic. We will see back in office in 2 weeks Charges/Coding Multi Select Codes Visit Charges Visit Charges: 50532 Disch Hosp
--- NOTE | 2020-09-22 10:58 | DS.PCM_ITS ---
Providers Date of Admission: 09/20/20 Primary Care Physician: Dr. Coral Garcia MD Reason For Visit: PELVIC INFLAMMATORY DISEASE Diagnosis Discharge Diagnosis (1) PID (acute pelvic inflammatory disease): Status: Acute Code(s): N73.0 - Acute parametritis and pelvic cellulitis (2) Ovarian cyst: Status: Acute Code(s): N83.209 - Unspecified ovarian cyst, unspecified side Qualifiers: Laterality: left Qualified Code(s): N83.202 - Unspecified ovarian cyst, left side Medications at Discharge Home Medications levonorgestrel 20.1 mcg/24 hrs (6 yrs) 52 mg intrauterine device 1 device INTRA- UTER ONCE 06/11/20 buspirone 10 mg PO BID 09/20/20 citalopram [Celexa] 40 mg PO DAILY 09/20/20 doxycycline hyclate 100 mg PO BID 12 Days #24 cap 09/22/20 ibuprofen 800 mg PO Q8H PRN #30 tab 09/22/20 metronidazole 500 mg PO BID 12 Days #24 tab 09/22/20 oxycodone 5 mg PO Q6H PRN 2 Days #5 cap 09/22/20 Hospital Course Operations None Procedures None Summary of Care Provided Hospital Course: 30-year-old female G 1P1 admitted as a transport from an outside emergency department for lower abdominal pain. On admission, patient was found to have significant cervical motion tenderness with purulent appearing vaginal discharge as well as pelvic pain. She was noted at the outside ER to have an ovarian cyst that appeared hemorrhagic in nature. Her initial white count on admission was 15. She was given 48 hours of cefotetan and doxycycline with significant symptomatic improvement. Her white blood cell count normalized on hospital day 2. She was discharged home in stable condition on 09/22 with plan for a total of 14 days of antibiotics and close outpatient follow-up. ABG / Lab / Microbiology Data Result Diagrams: 09/21/20 06:38 09/21/20 06:38 Microbiology: Microbiology 09/20/20 22:12 Gram Stain - Final Genital vaginal Genital Culture - Preliminary G. vaginalis (Presumptive) Microbiology 09/20/20 22:12 Genital vaginal Gram Stain - Final 09/20/20 22:12 Genital vaginal Genital Culture - Preliminary G. vaginalis (Presumptive) D/C Instructions Discharge Diet: No restrictions Discharge Activity: Return to Normal Activity May resume sexual activity in: 1-2 weeks Call your doctor if your incision/area has: Sudden Increased Bleeding and Foul Smelling Discharge Call your doctor if you observe: Fever of 101 or Higher, Using more than one pad per hour, Shortness of breath, Dizziness, Fainting spells, Chest pain and Uncontrolled pain Please Follow Up With: Brenda Vazquez MD When: 2 weeks Meaningful Use Info Meaningful Use Diagnoses (Choose all that apply): None applicable Discharge Plan Admission Admit Date/Time: 09/20/20 22:19 Primary Reason for Your Visit: Pelvic inflammatory disease Attending Provider: Brenda Vazquez Primary Care Provider: Coral Garcia Instructions Patient Instructions: Complications of Pelvic Inflammatory Disease (PID), Treating Pelvic Inflammatory Disease (PID) with Medications Discharge Orders/Prescriptions Prescriptions: New doxycycline hyclate 100 mg capsule 100 mg PO BID 12 Days Qty: 24 RF: 0 metronidazole 500 mg tablet 500 mg PO BID 12 Days Qty: 24 RF: 0 oxycodone 5 mg capsule 5 mg PO Q6H PRN (Reason: pain) 2 Days Qty: 5 RF: 0 ibuprofen 800 mg tablet 800 mg PO Q8H PRN (Reason: pain) Qty: 30 RF: 1 Continued Liletta 20.1 mcg/24 hrs (6 yrs) 52 mg intrauterine device 1 device INTRA-UTER ONCE RF: 0 buspirone 10 mg tablet 10 mg PO BID RF: 0 citalopram [Celexa] 40 mg tablet 40 mg PO DAILY RF: 0 Referrals / Follow Up: Coral Garcia MD [Primary Care Provider] - Disposition Disposition (needs filled in before D/C Order can be placed): Home, self care
--- NOTE | 2020-09-22 13:03 | PCM.DC ---
Discharge Instructions Diet Discharge Diet: No restrictions Activity May resume sexual activity in: 1-2 weeks Dressing / Incision Call your doctor if your incision/area has: Sudden Increased Bleeding and Foul Smelling Discharge Call your doctor if you observe: Fever of 101 or Higher, Using more than one pad per hour, Shortness of breath, Dizziness, Fainting spells, Chest pain and Uncontrolled pain Follow Up Care Please Follow Up With: Brenda Vazquez MD Test Results: Test results from this visit will be discussed in further detail at your follow-up appointment, if applicable. Discharge Plan Admission Admit Date/Time: 09/20/20 22:19 Primary Reason for Your Visit: Pelvic inflammatory disease Attending Provider: Brenda Vazquez Primary Care Provider: Coral Garcia Instructions Patient Instructions: Complications of Pelvic Inflammatory Disease (PID), Treating Pelvic Inflammatory Disease (PID) with Medications Discharge Orders/Prescriptions Prescriptions: New doxycycline hyclate 100 mg capsule 100 mg PO BID 12 Days Qty: 24 RF: 0 metronidazole 500 mg tablet 500 mg PO BID 12 Days Qty: 24 RF: 0 oxycodone 5 mg capsule 5 mg PO Q6H PRN (Reason: pain) 2 Days Qty: 5 RF: 0 ibuprofen 800 mg tablet 800 mg PO Q8H PRN (Reason: pain) Qty: 30 RF: 1 Continued Liletta 20.1 mcg/24 hrs (6 yrs) 52 mg intrauterine device 1 device INTRA-UTER ONCE RF: 0 buspirone 10 mg tablet 10 mg PO BID RF: 0 citalopram [Celexa] 40 mg tablet 40 mg PO DAILY RF: 0 Referrals / Follow Up: Coral Garcia MD [Primary Care Provider] - Disposition Disposition (needs filled in before D/C Order can be placed): Home, self care
[2020-09-22 13:59] VITALS: BP 127/67; PULSE 65; RESP 16; TEMP 36.9; O2SAT 100
[2020-09-23 16:09] LABS: Chlamydia By Nucleic Acid AMP Negative (Negative)
[2020-09-23 16:23] LABS: Gonococcus By Nucleic Acid AMP Negative (Negative)
== END 2020-09-22 14:20 | disposition home or self-care (01) ==
PROVIDERS: Admitting Provider Obstetrics & Gynecology; PCP Family Medicine; Visit Provider Obstetrics & Gynecology
DX: N73.0 Acute parametritis and pelvic cellulitis (principal); K58.9 Irritable bowel syndrome, unspecified; F32.9 Major depressive disorder, single episode, unspecified; F41.9 Anxiety disorder, unspecified; J45.909 Unspecified asthma, uncomplicated; N87.0 Mild cervical dysplasia; Z79.3 Long term (current) use of hormonal contraceptives; Z79.899 Other long term (current) drug therapy; F17.210 Nicotine dependence, cigarettes, uncomplicated; N83.202 Unspecified ovarian cyst, left side
CPT/HCPCS: 36415; 80053; 85025; 85027; 87070; 87205; 87491; 87591; 96361; 96365; 96366; 96375; 96376; 99218; J7120; A4216; G0378; G0379

== ENCOUNTER → 2020-09-26 08:41 | Outpatient (CLI) | payer MEDICAID, SELFPAY ==
[2020-09-20 21:20] VITALS: BMI 44.1
[2020-09-26 09:19] LABS: Thyroid Stim Hormone (TSH) 0.92 uIU/mL (0.358-3.74)
== END ==
PROVIDERS: PCP Family Medicine; Referring Provider Family Medicine; Visit Provider Family Medicine
DX: I95.9 Hypotension, unspecified (principal)
CPT/HCPCS: 36415; 82533; 84443

== ENCOUNTER → 2020-10-18 13:42 | Outpatient (CLI) | payer MEDICAID, SELFPAY ==
[2020-10-10 09:25] VITALS: BMI 44.2
--- NOTE | 2020-10-18 13:46 | US_ITS ---
STUDY: ULTRASOUND OF THE FEMALE PELVIS - COMPLETE REASON FOR EXAM: Female, 30 years old. Ovarian cyst LMP: 10/03/2020. TECHNIQUE: Transabdominal and Transvaginal TECHNICAL QUALITY: Adequate. COMPARISON: Comparison is made with prior study dated 03/16/2020. FINDINGS: The uterus is anteverted and is in a midline position. The uterus measures 8.8 cm x 4.9 cm x 3.4 cm. Normal uterine cervix. The endometrium measures 3 mm in thickness, and is hyperechoic. There is no demonstrated endometrial mass. There is no demonstrated myometrial mass. I.U.D. - The patient does have an I.U.D. . IUD is seen in the fundal portion of the endometrium. The right ovary is visualized. The right ovary measures 4.3 cm x 3.4 cm x 3.4 cm. There is a 3.1 cm x 2.4 cm x 1.9 cm cyst. There is no visualized right adnexal mass or complex lesion. There is normal arterial and normal venous vascularity. The left ovary is visualized. The left ovary measures 2.8 cm x 2.6 cm x 2.3 cm. A dominant follicle is seen within the ovary. There is no visualized left adnexal mass or complex lesion. There is normal arterial and normal venous vascularity. There is no fluid in the cul-de-sac. The pre void volume of the bladder was 396 ml. US/Transvaginal Non- IMPRESSION: 3.1 cm x 2.4 cm x 1.9 cm right ovarian cyst. Electronically Signed: Steve Sykes MD at 15:08 EDT , Service support ,
--- NOTE | 2020-10-18 13:46 | US_ITS ---
STUDY: ULTRASOUND OF THE FEMALE PELVIS - COMPLETE REASON FOR EXAM: Female, 30 years old. Ovarian cyst LMP: 10/03/2020. TECHNIQUE: Transabdominal and Transvaginal TECHNICAL QUALITY: Adequate. COMPARISON: Comparison is made with prior study dated 03/16/2020. FINDINGS: The uterus is anteverted and is in a midline position. The uterus measures 8.8 cm x 4.9 cm x 3.4 cm. Normal uterine cervix. The endometrium measures 3 mm in thickness, and is hyperechoic. There is no demonstrated endometrial mass. There is no demonstrated myometrial mass. I.U.D. - The patient does have an I.U.D. . IUD is seen in the fundal portion of the endometrium. The right ovary is visualized. The right ovary measures 4.3 cm x 3.4 cm x 3.4 cm. There is a 3.1 cm x 2.4 cm x 1.9 cm cyst. There is no visualized right adnexal mass or complex lesion. There is normal arterial and normal venous vascularity. The left ovary is visualized. The left ovary measures 2.8 cm x 2.6 cm x 2.3 cm. A dominant follicle is seen within the ovary. There is no visualized left adnexal mass or complex lesion. There is normal arterial and normal venous vascularity. There is no fluid in the cul-de-sac. The pre void volume of the bladder was 396 ml. US/Pelvic (Non ) IMPRESSION: 3.1 cm x 2.4 cm x 1.9 cm right ovarian cyst. Electronically Signed: Steve Sykes MD at 15:08 EDT , Service support ,
== END ==
PROVIDERS: PCP Family Medicine; Referring Provider Obstetrics & Gynecology; Visit Provider Obstetrics & Gynecology
DX: N83.202 Unspecified ovarian cyst, left side (principal)
CPT/HCPCS: 76830; 76856

== ENCOUNTER 2021-03-05 14:27 | Emergency (ER) | payer MEDICAID, SELFPAY ==
[2021-03-05 14:28] VITALS: BP 144/64; PULSE 74; RESP 18; TEMP 37; O2SAT 98; BMI 45.8
[2021-03-05 17:00] VITALS: PULSE 64; RESP 16; O2SAT 98
--- NOTE | 2021-03-05 17:07 | EDS_ITS ---
HPI History of Present Illness Chief Complaint: Shortness of Breath Informant: patient Onset/Context/Timing Onset: Weeks (1) Context: Gradual Onset Timing: Continuous Worsened by: Nothing Relieved by: Nothing Narrative Narrative: Patient presents with cough and sinus congestion that has been getting worse over the past week. Patient also states she has been wheezing. Patient states she has been using her albuterol which has not helped. Patient states she was exposed to someone on Wednesday who tested positive for COVID-19 yesterday. Patient states she is coughing up some green-yellow sputum. Patient denies any fevers or chills. Patient denies any chest pain. PFSH PFS Medical History Abnormal Pap smear of cervix Anxiety Asthma SEAN I (cervical intraepithelial neoplasia I) Depression IBS (irritable bowel syndrome) Smoker Home Medications levonorgestrel 20.1 mcg/24 hrs (6 yrs) 52 mg intrauterine device 1 device INTRA- UTER ONCE 06/11/20 [History Last Taken Unknown] citalopram [Celexa] 40 mg PO DAILY 09/20/20 [History Last Taken 09/20/20 07:50] Allergy/AdvReac Type Severity Reaction Status Date / Time shrimp AdvReac itchy Verified 03/05/21 16:59 throat & some swelling Family History Grandmother Diabetes Father Hypertension Grandfather Heart disease Grandmother Diabetes Surgical History History of colposcopy History of low transverse section Social History adopted: No housing: apartment current occupational status: employed 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 [employer] pets and animals: Yes history of recent travel: No Smoking Status: Current some day smoker tobacco type: cigarettes second hand exposure: No alcohol intake: current details: occasionally- not while substance use type: does not use caffeine: Yes what type of physical activity do you participate in: other details: cardio frequency: 1-2 times per week seatbelt use: always do you feel safe at home: Yes additional social history: Single 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 ROS ROS ED Constitutional Constitutional ED: Denies chills or fever(s) Eyes Eyes: Denies blurry vision or change in vision ENT ENT ED: Denies rhinorrhea or sore throat Cardiovascular Cardiovascular: Denies chest pain or palpitations Respiratory/Chest Respiratory/Chest: Reports dyspnea; Denies cough Gastrointestinal Gastrointestinal: Reports nausea; Denies vomiting Genitourinary Genitourinary ED: Denies dysuria or hematuria Musculoskeletal Musculoskeletal: Denies back pain or neck pain Integumentary Reports rash; Denies abscess Neurologic Neurologic: Denies headache(s) or weakness Allergic/Immunologic Allergic/Immunologic ED: Denies mouth swelling or urticaria EXAM Physical Exam Const Vital Signs: 03/05/21 14:28 03/05/21 17:00 Temperature 98.6 F Temperature Source Temporal Pulse Rate 74 64 Respiratory Rate 18 16 Respiratory Effort Normal Respiratory Depth Normal Respiratory Pattern Normal Blood Pressure 144/64 H Blood Pressure Mean 90 Pulse Ox 98 98 Oxygen Delivery Method Room Air Room Air Positive well nourished, well developed and obese General Appearance ED: well developed Nutritional Appearance: obese HEENT Reports moist mucous membranes Neck supple and no JVD Resp normal respiratory effort and clear to auscultation bilaterally Cardio regular rate, regular rhythm and no murmurs GI normal to inspection, nondistended, normoactive bowel sounds and non-tender Palpation: soft Extremity normal to inspection General Extremety ED: Negative for edema or tenderness General Extremity: Negative for edema Neuro oriented x3, CN's II-XII intact bilaterally and no sensory deficits noted Sensorium / Orientation: alert Motor Exam: strength 5/5 throughout Psych mental status grossly normal Skin no rashes or lesions noted MDM MDM MDM Narrative Medical decision making narrative: COVID-19 rapid antigen was obtained and was negative. Patient got her results via text message on her phone. Patient left after receiving these results. Patient did not wait for any further instructions. Discharge Plan Triage Chief Complaint: Shortness of Breath ED Provider: Ajit Alexander Dx/Rx/DC Orders Clinical Impression: Viral illness Instructions: ED Viral Syndrome (Adult) Prescriptions: No Action Liletta 20.1 mcg/24 hrs (6 yrs) 52 mg intrauterine device 1 device INTRA-UTER ONCE RF: 0 citalopram [Celexa] 40 mg tablet 40 mg PO DAILY RF: 0 Primary Care Provider: Coral Garcia Referrals: Coral Garcia MD [Primary Care Provider] - Disposition Disposition: Home, Self Care Discharge Date/Time: 03/05/21 18:21
== END 2021-03-05 18:21 | disposition home or self-care (01) ==
PROVIDERS: Emergency Provider Emergency Medicine; PCP Family Medicine
DX: B34.9 Viral infection, unspecified (principal); R09.81 Nasal congestion; R06.02 Shortness of breath; Z20.822 Contact with and (suspected) exposure to COVID-19; J45.909 Unspecified asthma, uncomplicated; K58.9 Irritable bowel syndrome, unspecified; F32.A Depression, unspecified; F41.9 Anxiety disorder, unspecified; E66.9 Obesity, unspecified; F17.210 Nicotine dependence, cigarettes, uncomplicated; Z79.3 Long term (current) use of hormonal contraceptives; Z79.899 Other long term (current) drug therapy
CPT/HCPCS: 87426; 99282

== ENCOUNTER 2021-03-12 18:30 | Outpatient (RCR) | payer MEDICAID, SELFPAY ==
--- NOTE | 2021-01-09 18:40 | HP.PTEVAL_ITS ---
Patient's Visit Information SHAWN OVIEDO is a 30 year old F referred to Physical Therapy by Dr. Coral Garcia MD with a diagnosis of Plantarfasciitis. Date of Evaluation: 01/09/21 Physical Therapist: Ajit Alex, DPT, OCS, CSCS - Visit Plan Frequency: 2x /Week Duration: 4-6 Weeks Plan: 2x/week for 4-6 weeks as needed for. 1. STM to PF area with dry needling if found appropriate, rollout and stretch gastroc and soleus. DF mobs. 2. Educate on managemnt and continued options for PFitis reviewed today including orthotics, night splint, iontophoresis (all would have to be self pay so refused today. 3. Progressive ankle strength, foot intrinsic strength. ice massage as needed. - Subjective PFitis long history. 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 had twins 9 months ago today and it started coming back while she was . R heel and arch hurt.. Worse in morning 10/10 and the again if sits too long. Has had cortisone shots 2x lasting 2 days relief last time years ago. Has had no treatment this episode last 9 months. Ibuprofen at times. No orthotics, but has bought good shoes. Works in [employer] 8 hour shifts plus. Spends day chasing twins around. No regular exercises. rolls forzen water bottle on foot. It does not keep her up at night - Pain R heel Pain Intensity (Out of 10): 0 Pain Intensity Range: 0, 10 Comment: am worse. - Objective Walks normal today, slight R antalgia getting up from chair but it smooths out. Trasnfers I. Max tender to palpation R medial calcaneal plantar surface. AROM R ankle 0 Df to 58 PF, 30 inv to 20 eversion , no pain. tightness palpable in plantarfasciitis R. Tightness obvious in gastroc muscle and less so in soleus. strength 5/5 R ankle inv, ev, PF, DF. Sensation WNL to gross light touch in LE. Frontal plane mechanics at foot are bordering on pes cavus but well supported arch, hindfoot in neutral. Metatarsals are moving well and no pain with reisted toe movements. - Balance/Special Test Scores Lower Extremity Functional Score: 73 - Goals Goal 1:: Patient heel pain diminished to 0-1/10 at worst and 90% improved overall. Goal Time Frame: 4-6 Weeks Goal 2:: Exit bed in am with only slight trasnient discomfort Goal Time Frame: 4-6 Weeks Goal 3:: I management of condition streetches and options Goal Time Frame: 4-6 Weeks Goal 4:: Work without increased pain. Goal Time Frame: 4-6 Weeks - Rehabilitation Potential Physical Therapy Diagnosis: Plantarfasciitis chronic heel pain Rehabilitation Potential: Fair - Anticipated Interventions Patient/Client Instruction: Educate patient on: Condition, Plan of Care For the Purpose of:: To decrease pain, To increase ROM, To improve muscle performance and motor function Therapeutic Exercise to Include: Strength training, Flexibilty training, Passive ROM, Active ROM For the Purpose of:: To decrease pain, To increase ROM Manual Therapy Techniques to Include: Mobilization, Passive ROM, Soft tissue mobilization For the Purpose of:: To decrease pain, To increase ROM Cryotherapy (ice pack, ice massage): Yes For the Purpose of:: To decrease swelling/inflammation Thank you for the opportunity to evaluate your patient. For Medicare and Medicare HMO plans, please review the plan of care and approve it. It will need to be FAXED BACK to us at [phone] for Medicare purposes. For Medicare only, by signing this I certify the plan of care. Please let me know if there are questions or concerns regarding this plan of care. Physician Signature: Date:
--- NOTE | 2021-05-02 10:06 | HP.PT.NRP ---
SHAWN OVIEDO was seen in my office for initial evaluation on 01/09/21. The following Plan of Care was established for this patient: Initial Frequency: 2x /Week Initial Duration: 4-6 Weeks Patient/Client Instruction: Educate patient on: Condition, Plan of Care For the Purpose of:: To decrease pain, To increase ROM, To improve muscle performance and motor function Therapeutic Exercise to Include: Strength training, Flexibilty training, Passive ROM, Active ROM For the Purpose of:: To decrease pain, To increase ROM Manual Therapy Techniques to Include: Mobilization, Passive ROM, Soft tissue mobilization For the Purpose of:: To decrease pain, To increase ROM Cryotherapy (ice pack, ice massage): Yes For the Purpose of:: To decrease swelling/inflammation This patient was last seen in our office 03/12/21. Pertinent comments regarding their Physical therapy will appear below: Pt seen 5 visits of POC but was having trouble attending and did not attend any further visits of POC. at this point, it has been over 6 weeks and I will disocntinue from my care. At this point I will be discontinuing this patient from physical therapy. I would be happy to see this patient again in the future if found appropriate by the physician. Thank you! Ajit Alex, DPT, OCS, CSCS Balance/Gait/Functional tests - Balance/Special Test Scores Lower Extremity Functional Score: 73
== END 2021-03-12 19:00 | disposition home or self-care (01) ==
LOC: PT 18:30
PROVIDERS: PCP Family Medicine; Referring Provider Family Medicine; Visit Provider Family Medicine
DX: M72.2 Plantar fascial fibromatosis (principal)
CPT/HCPCS: 97110; 97140; 97161

== ENCOUNTER 2021-05-21 16:13 | Outpatient (CLI) | payer MEDICAID, SELFPAY ==
[2021-05-23 22:07] LABS: Chlamydia By Nucleic Acid AMP Negative (Negative)
[2021-05-24 07:16] LABS: Gonococcus By Nucleic Acid AMP Negative (Negative)
[2021-05-28 00:07] LABS: HPV Genotype 16, Aptima Negative (Negative)
[2021-05-28 13:14] LABS: HPV APTIMA, High Risk Positive (Negative); HPV Genotype 18,45 Aptima Negative (Negative)
== END 2021-05-21 23:59 | disposition short-term general hospital (02) ==
LOC: LABSPEC 16:14
PROVIDERS: PCP Family Medicine; Referring Provider Nurse Practitioner Women's Health; Visit Provider Nurse Practitioner Women's Health
DX: Z12.4 Encounter for screening for malignant neoplasm of cervix (principal); Z11.3 Encounter for screening for infections with a predominantly sexual mode of transmission
CPT/HCPCS: 87491; 87591; 87624; 88175; G0145

== ENCOUNTER → 2021-10-10 | Outpatient (CLI) | payer MEDICAID, SELFPAY | END | disposition home or self-care (01) | PROVIDERS: PCP Family Medicine; Visit Provider Family Medicine | DX: N89.8 Other specified noninflammatory disorders of vagina (principal) ==

== ENCOUNTER 2021-12-01 07:22 | Emergency (ER) | payer MEDICAID, SELFPAY ==
[2021-12-01 07:23] VITALS: BP 116/76; PULSE 72; RESP 18; TEMP 36.2; O2SAT 100; BMI 43.9
--- NOTE | 2021-12-01 07:38 | EDS_ITS ---
HPI HPI - GI History of Present Illness Chief Complaint: Abd Pain Detail of Chief Complaint: Initially in the suprapubic pelvic area has radiated to upper abdomen Informant: patient Abdominal Pain/Flank Pain Onset: Days (Onset Wednesday) Context: Sudden Onset Timing: Continuous and Waxes and wanes Quality: Aching Location: - (Initially suprapubic radiated upwards and now complains of pain right upper quadrant and epigastrium) Current Severity: Moderate Maximum Severity: Severe Worsened by: Movement Relieved by: Nothing Nausea/Vomiting/Emesis GI Symptom: Positive for Nausea; Negative for Vomiting Onset: Days Severity: Mild Diarrhea/Melena/Hematochezia GI Symptom: Negative for Diarrhea, Melena or Hematochezia Associated Symptoms Associated Symptoms: Negative for Dysuria, Frequency, Hematuria or Urgency LMP: A couple of months ago Narrative Narrative: Patient is a 31-year-old with history of IUD and is a lesbian. She had sexual relations with her girlfriend yesterday. Initially she did hide sexual contact for some time. Patient denies fever, chills or night sweats. Patient denies upper respiratory, cardiac or pulmonary symptoms. She states the pain started Wednesday. It was worse Wednesday. She did go out to a girlfriends birthday republican. She does admit to drinking alcoholic beverages. She denies history of food intolerance. She denies history of pancreatitis. The pain became worse on Wednesday. The pain has radiated from the lower abdomen/suprapubic area to the upper abdomen (right upper quadrant/epigastric area). She denies vomiting or diarrhea. She denies vaginal discharge. She endorses dyspareunia. She denies vaginal bleeding. She denies dysuria, frequency, urgency or hematuria. She denies history of renal or ureteral lithiasis. Prior similar symptoms: Yes (PID 3 years ago) Recent Illness/Hospitalization: No PFSH PFSH Medical History Abnormal Pap smear of cervix Anxiety Asthma SEAN I (cervical intraepithelial neoplasia I) Depression IBS (irritable bowel syndrome) PID (acute pelvic inflammatory disease) Smoker Home Medications levonorgestrel 20.1 mcg/24 hrs (6 yrs) 52 mg intrauterine device (Liletta) 1 device intrauterine ONCE 06/11/20 [History Last Taken Unknown] citalopram 40 mg tablet (Celexa) 40 mg PO DAILY anxiety 09/20/20 [History Last Taken 09/20/20 07:50] Allergy/AdvReac Type Severity Reaction Status Date / Time shrimp AdvReac itchy Verified 05/21/21 15:13 throat & some swelling Family History Grandmother Diabetes Father Hypertension Grandfather Heart disease Grandmother Diabetes Surgical History History of colposcopy History of low transverse section Social History (Updated 12/01/21 @ 07:[address] Ronnie Pitts MD) adopted: No household members: significant other housing: apartment current occupational status: employed current occupation: [employer] in [place] pets and animals: Yes history of recent travel: No Smoking Status: Current some day smoker tobacco type: cigarettes second hand exposure: No alcohol intake: current details: occasionally- not while substance use type: does not use caffeine: Yes what type of physical activity do you participate in: other details: cardio frequency: 1-2 times per week seatbelt use: always do you feel safe at home: Yes additional social history: Single ROS ROS ED Constitutional Constitutional ED: Reports chills; Denies fever(s), subjective, sweats or weight loss ENT ENT ED: Denies ear pain, rhinorrhea or sore throat Cardiovascular Cardiovascular: Denies chest pain, orthopnea, palpitations, paroxysmal nocturnal dyspnea or racing heartbeat Respiratory/Chest Respiratory/Chest: Denies cough, dyspnea, dyspnea on exertion, orthopnea or paroxysmal nocturnal dyspnea Gastrointestinal Gastrointestinal: Reports abdominal pain; Denies constipation, diarrhea, melena, nausea or vomiting Genitourinary Genitourinary ED: Denies dysuria, hematuria or urinary frequency Musculoskeletal Musculoskeletal: Denies arthralgias, back pain, myalgias or neck pain Integumentary Denies abscess or rash Neurologic Neurologic: Denies paresthesias or weakness Endocrine Endocrinology: Denies polydipsia, polyphagia or polyuria Hematologic/Lymphatic Hematologic/Lymphatic: Denies easy bleeding, easy bruising or lymphadenopathy EXAM Physical Exam Const Vital Signs: 12/01/21 07:23 Temperature 97.2 F L Temperature Source Temporal Pulse Rate 72 Respiratory Rate 18 Blood Pressure 116/76 Blood Pressure Mean 89 Pulse Ox 100 Oxygen Delivery Method Room Air Positive well nourished, well developed and obese; Negative for cachectic, contractures or unkempt Constitutional Narrative: Patient does not appear well. General Appearance ED: well developed; Negative for unkempt, cachectic, contractures or pallor Nutritional Appearance: obese; Negative for cachectic HEENT Reports moist mucous membranes HEENT Narrative: Ears normal. Nares patent. No dental abnormality. normocephalic and atraumatic Eyes PERRL and EOMs intact bilaterally General Eye ED: Negative for pale conjunctiva or scleral icterus Neck no lymphadenopathy, supple and no JVD Resp normal respiratory effort and clear to auscultation bilaterally Cardio regular rate, regular rhythm, S1 normal heart sound, S2 normal heart sound and no murmurs GI non-distended and no masses; Negative for non-tender Auscultation: hypoactive bowel sounds Palpation: soft and tender epigastric, RUQ, suprapubic, Carrion's sign and Rovsing's sign Narrative: External genitalia normal. Vaginal mucosa and submucosa. Cervix appears normal. There is no discharge noted. Bimanual exam revealed no discomfort with pressure against the bladder. No cervical motion tenderness. No uterine tenderness. No adnexal fullness or tenderness. Unable to appreciate size of ovaries. Back/Spine no CVA tenderness Cervical Spine: Negative for cervical spine tenderness Thoracic Spine / Upper Back: Negative for thoracic spinal tenderness Extremity full ROM General Extremety ED: Negative for edema or tenderness General Extremity: Negative for edema Neuro CN's II-XII intact bilaterally, moves all extremities and no sensory deficits noted Sensorium / Orientation: alert Psych Psych Narrative: Affect is flat. Mood is depressed. Appearance: Negative for unkempt Skin no wounds General Skin Exam: Negative for jaundice or pallor Lesions: no lesions Rashes: no rashes MDM MDM MDM Narrative Medical decision making narrative: Differential diagnoses would include urinary tract infection, pelvic disease including ovarian cyst, PID, biliary disease, gastritis/GERD, and pancreatitis. Appropriate blood work was ordered. She was medicated with Zofran for her nausea and Toradol for her pain. Since she is a lesbian and has an IUD and no symptoms of test was not obtained. Lab Data Attestation: I reviewed the patient's lab results. Lab results narrative: Patient was informed at 0925 that her laboratory studies are unremarkable. She was reexamined. Her abdomen is soft. She reports tenderness. There is no guarding or peritoneal findings. Patient is requesting a pelvic exam. Order was placed for pelvic exam. Labs: Laboratory Results - last 24 hr 12/01/21 12/01/21 12/01/21 07:54 07:54 07:54 WBC 9.1 RBC 4.54 Hgb 13.4 Hct 41.7 MCV 91.9 MCH 29.5 MCHC 32.1 RDW Std Deviation 43.3 RDW Coeff of Prema 12.8 Plt Count 368 MPV 10.1 Immature Gran % (Auto) 0.200 Neut % (Auto) 72.6 H Lymph % (Auto) 21.4 [place] % (Auto) 4.2 Eos % (Auto) 1.4 Baso % (Auto) 0.2 Absolute Neuts (auto) 6.6 Absolute Lymphs (auto) 1.94 Nucleated RBC % 0 Sodium 139 Potassium 3.4 L Chloride 104 Carbon Dioxide 30.0 Anion Gap 5 BUN 14 Creatinine 0.61 Estim Creat Clear Calc 96.86 Est GFR (MDRD) Af Amer 146 Est GFR (MDRD) Non-Af 121 BUN/Creatinine Ratio 22.8 H Glucose 97 Calcium 8.1 L Total Bilirubin 0.60 AST 15 ALT 21 Alkaline Phosphatase 118 H Total Protein 6.7 Albumin 3.1 L Globulin 3.6 Albumin/Globulin Ratio 0.9 Lipase 68 L Urine Color Yellow Urine Clarity Clear Urine pH 6.0 Ur Specific [place] 1.025 Urine Protein 15 H Urine Glucose (UA) Normal Urine Ketones 5 H Urine Occult Blood 10 H Urine Nitrite Negative Urine Bilirubin Negative Urine Urobilinogen Normal Ur Leukocyte Esterase Negative Urine RBC 5-10 SEEN Urine WBC 0 SEEN Ur Squamous Epith Cells 0-5 SEEN Urine Bacteria 0 SEEN Urine Mucus 3+ Discharge Plan Triage Chief Complaint: Abd Pain ED Provider: Ronnie Pitts Dx/Rx/DC Orders Clinical Impression: Abdominal pain of unknown cause Instructions: ED Abdominal Pain Unkn Cause Fem Prescriptions: No Action Liletta 20.1 mcg/24 hrs (6 yrs) 52 mg intrauterine device 1 device INTRA-UTER ONCE Rx Instructions: as a single dose citalopram [Celexa] 40 mg tablet 40 mg PO DAILY Primary Care Provider: Coral Garcia Referrals: Coral Garcia MD [Primary Care Provider] - 3-5 Days if not improving Disposition Disposition: Home, Self Care
[2021-12-01 08:02] LABS: Bacteria 0 SEEN /hpf (None Seen); White Blood Cells 0 SEEN /hpf (0-5)
[2021-12-01] MEDS: Ketorolac 15 MG/ML Vial IV (08:03)
[2021-12-01] MEDS: Ondansetron 4 MG/2 ML Vial IV (08:03)
[2021-12-01 08:04] LABS: Absolute Lymphocyte Count 1.94 X10^3/uL (0.83-4.51); Absolute Neutrophil Count 6.6 X10^3/uL (2.0-7.7); Basophil# 0.02 X10^3/uL; Basophil% 0.2 % (0-1); Color, Urine Yellow (Yellow); Eosinophil# 0.13 X10^3/uL; Eosinophils% 1.4 % (0-5); Glucose, Dipstick Normal (Normal); Hematocrit 41.7 % (37-47); Hemoglobin 13.4 g/dL (12.0-15.0); Ketone-Dipstick 5 mg/dl (Negative); Leukocyte Esterase-Dipstick Negative /ul (Negative); Lymphocyte # 1.94 X10^3/ul (0.83-4.51); Lymphocyte % 21.4 % (19-41); Mean Corp Hgb Conc 32.1 g/dL (32-36); Mean Corpuscular Hgb 29.5 pg (27.0-32.0); Mean Corpuscular Volume 91.9 fL (81-99); Mean Platelet Vol. 10.1 fl (6.2-12.0); Monocyte# 0.38 X10^3/uL; Monocyte% 4.2 % (0-10); NRBC Flagged by Analyzer 0 % (0-5); Neutrophil # 6.59 X10^3/uL (2.7-7.7); Neutrophil % 72.6 % (47-70); Nitrite-Dipstick Negative (Negative); Occult Blood-Urine 10 /ul (Negative); Platelet Count 368 K/mm3 (150-450); Protein-Dipstick 15 mg/dl (Negative); RBC Distribution Width CV 12.8 % (11.6-14.6); RBC Distribution Width SD 43.3 fl (35.1-43.9); Red Blood Count 4.54 M/mm3 (4.2-5.4); Specific Gravity, Urine 1.025 (1.002-1.030); Urine Bilirubin Dipstick Negative (Negative); Urine Clarity Clear (Clear); Urine Urobilinogen Normal (Normal); White Blood Count 9.1 K/mm3 (4.4-11.0)
[2021-12-01] MEDS: 0.9% Normal Saline 1,000 ML 250 ML IV (08:07)
[2021-12-01 08:15] LABS: Red Blood Cells-Urine 5-10 SEEN /hpf (0-5); Squamous Epithelial Cells - UA 0-5 SEEN /hpf (5-10)
[2021-12-01 08:18] LABS: Mucous, Urine 3+ /hpf (<or=2+)
[2021-12-01 08:20] LABS: ALB/GLOB Ratio 0.9 RATIO (0.9-2.4); AST(SGOT) 15 U/L (15-37); Alanine Aminotransfer ALT/SGPT 21 U/L (13-56); Albumin, Serum 3.1 g/dL (3.2-5.0); Alkaline Phosphatase 118 U/L (45-117); Anion Gap 5 (5-15); BUN 14 mg/dL (7-18); BUN/Creat Ratio 22.8 RATIO (10-20); Calcium,Total 8.1 mg/dL (8.5-10.1); Chloride 104 mmol/L (98-107); Creatinine, Serum 0.61 mg/dL (0.55-1.02); EST Glomerular Filtration Rate 121 mL/min (>60); Est Glom Filt Rate - Afr Amer 146 mL/min (>60); Estimated Creatinine Clearance 96.86 ml/min; Globulin 3.6 g/dL (2.2-4.2); Glucose 97 mg/dL (74-106); Lipase 68 U/L (73-393); Potassium 3.4 mmol/L (3.5-5.1); Protein, Total 6.7 g/dL (6.4-8.2); Sodium Level 139 mmol/L (136-145)
[2021-12-01 09:23] VITALS: BP 122/72; PULSE 68; RESP 16; O2SAT 97
[2021-12-01 10:11] VITALS: RESP 16
== END 2021-12-01 10:25 | disposition home or self-care (01) ==
PROVIDERS: Emergency Provider Emergency Medicine; PCP Family Medicine; Visit Provider Emergency Medicine
DX: R10.9 Unspecified abdominal pain (principal); R11.0 Nausea; J45.909 Unspecified asthma, uncomplicated; F32.A Depression, unspecified; F17.210 Nicotine dependence, cigarettes, uncomplicated; Z79.899 Other long term (current) drug therapy
CPT/HCPCS: 80053; 81001; 83690; 85025; 96361; 96374; 96375; 99284; J7030; A4216; J2405

== ENCOUNTER → 2022-02-18 | Outpatient (CLI) | payer MEDICAID, SELFPAY ==
[2022-02-18 13:04] LABS: Absolute Lymphocyte Count 1.72 X10^3/uL (0.83-4.51); Absolute Neutrophil Count 3.1 X10^3/uL (2.0-7.7); Basophil# 0.05 X10^3/uL; Basophil% 0.9 % (0-1); Eosinophils% 1.9 % (0-5); Hematocrit 42.5 % (37-47); Hemoglobin 13.7 g/dL (12.0-15.0); Lymphocyte # 1.72 X10^3/ul (0.83-4.51); Lymphocyte % 32.6 % (19-41); Mean Corp Hgb Conc 32.2 g/dL (32-36); Mean Corpuscular Hgb 29.7 pg (27.0-32.0); Mean Corpuscular Volume 92.2 fL (81-99); Mean Platelet Vol. 10.3 fl (6.2-12.0); Monocyte# 0.33 X10^3/uL; Monocyte% 6.3 % (0-10); NRBC Flagged by Analyzer 0 % (0-5); Neutrophil # 3.07 X10^3/uL (2.7-7.7); Neutrophil % 58.3 % (47-70); Platelet Count 362 K/mm3 (150-450); RBC Distribution Width SD 43.9 fl (35.1-43.9); Red Blood Count 4.61 M/mm3 (4.2-5.4); White Blood Count 5.3 K/mm3 (4.4-11.0)
[2022-02-18 13:15] LABS: Insulin 8.1 mU/L (2.6-37.6)
[2022-02-18 13:21] LABS: ALB/GLOB Ratio 0.9 RATIO (0.9-2.4); AST(SGOT) 13 U/L (15-37); Alanine Aminotransfer ALT/SGPT 22 U/L (13-56); Albumin, Serum 3.5 g/dL (3.2-5.0); Alkaline Phosphatase 121 U/L (45-117); Anion Gap 4 (5-15); BUN 13 mg/dL (7-18); BUN/Creat Ratio 21.7 RATIO (10-20); Chloride 105 mmol/L (98-107); EST Glomerular Filtration Rate 124 mL/min (>60); Est Glom Filt Rate - Afr Amer 151 mL/min (>60); Free T3 2.8 pg/mL (2.18-3.98); Globulin 3.8 g/dL (2.2-4.2); Glucose 77 mg/dL (74-106); Potassium 4.1 mmol/L (3.5-5.1); Protein, Total 7.3 g/dL (6.4-8.2); Sodium Level 138 mmol/L (136-145); T4 Free Direct 0.96 ng/dL (0.76-1.46); Thyroid Stim Hormone (TSH) 1.17 uIU/mL (0.358-3.74)
== END | disposition home or self-care (01) ==
LOC: BFHLAB 09:09
PROVIDERS: PCP Family Medicine; Visit Provider Family Medicine
DX: E88.81 Metabolic syndrome and other insulin resistance (principal); R42 Dizziness and giddiness; R53.83 Other fatigue
CPT/HCPCS: 36415; 80053; 83036; 83525; 84439; 84443; 84481; 85025

== ENCOUNTER → 2022-09-28 | Outpatient (CLI) | payer OTHER, SELFPAY ==
[2022-10-02 11:09] LABS: HPV APTIMA, High Risk Negative (Negative)
== END | disposition home or self-care (01) ==
LOC: LABSPEC 14:34
PROVIDERS: PCP Family Medicine; Referring Provider Nurse Practitioner Women's Health; Visit Provider Nurse Practitioner Women's Health
DX: N87.0 Mild cervical dysplasia (principal)
CPT/HCPCS: 87624; 88175; G0145

== ENCOUNTER → 2022-11-09 | Outpatient (CLI) | payer OTHER, SELFPAY ==
--- NOTE | 2022-11-09 14:03 | US_ITS ---
INDICATION: pelvic pain EXAMINATION: Ultrasound US Pelvis Non OB Complete With Transvaginal Imaging TECHNIQUE: Transabdominal and transvaginal pelvic ultrasound was performed. Grayscale, spectral waveform, and color flow Doppler evaluation of the adnexa. COMPARISON: Prior study dated: 10/18/2020. FINDINGS: UTERUS: The uterus measures 8.8 x 5.5 x 4.0 cm in diameter. Myometrium is mildly homogeneous, without discrete fibroid. The endometrial stripe measures 4.8 in AP diameter which is within normal limits. IUD is no longer present. A by 7 x 6 mm nabothian cyst incidentally noted within the cervix. RIGHT OVARY: Visualized only transabdominal scanning. Non-enlarged, normal echogenicity; Doppler flow documented within the right ovary. Right ovary measures 2.3 x 2.4 x 1.3 cm in diameter. Previously noted right ovarian cyst has resolved. LEFT OVARY: Left ovary is enlarged measuring 9.4 x 3.2 x 7.6 cm in diameter. Left contains a 7.8 x 6.9 x 5.6 cm ovoid thin-walled anechoic unilocular simple cyst. Doppler flow is noted within the thin rim of surrounding ovarian tissue. No paraovarian lesion. FREE FLUID: None. OTHER: Unremarkable urinary bladder. US/Pelvic (Non ) IMPRESSION: Interval resolution of right ovarian cyst seen on prior ultrasound of 2020. Interval development of a 7.8 cm simple left ovarian cyst; Recommend follow-up pelvic ultrasound in 2-6 months for resolution/characterization. Electronically Signed: Jairo Giron MD at 5:12 EDT ,
== END | disposition home or self-care (01) ==
LOC: US 14:01
PROVIDERS: PCP Family Medicine; Referring Provider Nurse Practitioner Women's Health; Visit Provider Nurse Practitioner Women's Health
DX: N93.9 Abnormal uterine and vaginal bleeding, unspecified (principal); R10.2 Pelvic and perineal pain
CPT/HCPCS: 76830; 76856; 93976

== ENCOUNTER 2022-12-04 08:34 | Day surgery (SDC) | payer OTHER, SELFPAY ==
[2022-12-04 08:58] VITALS: BP 100/55; PULSE 76; RESP 16; TEMP 36.6; O2SAT 100; BMI 39.9
[2022-12-04 09:06] LABS: Internal QC Validated? YES +Cl - CLEAR BKGD; Pregnancy, Urine Negative Negative
[2022-12-04] MEDS: Lactated Ringers 1,000 ML 15 ML IV (09:12)
[2022-12-04 09:41] LABS: Hematocrit 40.8 % (37-47); Hemoglobin 12.9 g/dL (12.0-15.0); Mean Corp Hgb Conc 31.6 g/dL (32-36); Mean Corpuscular Hgb 29.5 pg (27.0-32.0); Mean Corpuscular Volume 93.4 fL (81-99); Mean Platelet Vol. 10.2 fl (6.2-12.0); Platelet Count 320 K/mm3 (150-450); RBC Distribution Width CV 12.7 % (11.6-14.6); RBC Distribution Width SD 43.7 fl (35.1-43.9); Red Blood Count 4.37 M/mm3 (4.2-5.4); White Blood Count 6.1 K/mm3 (4.4-11.0)
--- NOTE | 2022-12-04 10:30 | OV_PTH ---
PATIENT: SHAWN OVIEDO LOC: [facility] [place] U#:[id number] AGE/SX: 32/F ROOM: RE12/04/[address]: Dr. Jada Alves MD : 1990 BED: DIS: 12/04/2022 SPEC #: [id number] RECD: 12/04/22 14:03 STATUS: EDUARDO ROWLEY #: [id number] HAILE: 12/04/22 10:[address]: Jada Alves DEPT: SURGICAL PATHOLOGY RECD BY: Carly Webb ENTERED: 12/07/22 07:30 SP TYPE: OVARY OTHR DR: Dr. Coral Garcia MD Tissues: OVARIAN CYST Procedures: Surgery Specimen Level IV HEADER OPERATION: Laparoscopic ovarian cystectomy PRE-OP DIAGNOSIS: Left ovarian cyst, abdominal pain TISSUE SUBMITTED: Cyst wall MICROSCOPIC DIAGNOSIS Left ovarian cyst wall, excision: Consistent with fragments of corpus luteal cyst. Rare fragments of fallopian fimbrial tissue. AM:susan 12/08/2022 MICROSCOPIC DESCRIPTION Slides are reviewed. GROSS DESCRIPTION Received in fixative is one container labeled with the patient's name and designated cyst wall. The specimen consists of an irregular fragment of pink-de leon soft tissue measuring 6.0 x 1.5 x 0.5 cm. The specimen is serially sectioned and totally submitted in one cassette. / AM:susan 12/07/2022 TC:5 CPT: 65943
--- NOTE | 2022-12-04 11:17 | PCM.HP.BLA ---
History and Physical Date of Admission: 12/04/22 Vital Signs 09/28/2312:06 11/26/2314:05 11/26/2314:07 Height 5 ft 5 ft 8 in 5 ft Weight: 211 lb 2 oz BMI 32.1 BP 118/78 Intake Visit Reasons: Preop, ok per SM Cadmium Burner Required: No Is patient in pain?: No Allergies shrimp Adverse Reaction (Verified 11/26/22 15:06) itchy throat & some swelling Medications citalopram 40 mg tablet (Celexa) 40 mg PO DAILY anxiety 09/20/20 [History Confirmed 11/26/22] semaglutide (weight loss) 1 mg/0.5 mL subcutaneous pen injector 1 mg subcut QWEEK 09/28/22 [History Confirmed 11/26/22] loratadine 10 mg tablet (Claritin) 10 mg PO DAILY 11/26/22 [History Confirmed 11/26/22] oxycodone-acetaminophen 5 mg-325 mg tablet (Percocet) 1 tab PO Q6H 7 days #10 tabs 11/26/22 [Rx Confirmed 11/26/22] Post menopausal: No Patient : No : No PFSH Medical History Abnormal Pap smear of cervix Anxiety Asthma SEAN I (cervical intraepithelial neoplasia I) Depression IBS (irritable bowel syndrome) PID (acute pelvic inflammatory disease) Smoker Surgical History History of colposcopy History of low transverse section Family History Grandmother DiabetesFather HypertensionGrandfather Heart diseaseGrandmother Diabetes Social History adopted: No household members: significant other housing: apartment current occupational status: employed current occupation: [employer] in [place] pets and animals: Yes history of recent travel: No Smoking Status: Current some day smoker tobacco type: cigarettes second hand exposure: No alcohol intake: current details: occasionally- not while substance use type: does not use caffeine: Yes what type of physical activity do you participate in: other details: cardio frequency: 1-2 times per week seatbelt use: always do you feel safe at home: Yes additional social history: Single HPI Preop, ok per SM Details: MARLENA OVIEDO is a 32 year old who presents for onset abdominal pain. Patient has been taking Tylenol and ibuprofen with minimal improvement. She denies any abnormal bleeding or abnormal discharge. She denies any new sexual partners. Increasing over the last few weeks she has had lower pelvic pressure and pain worse on the left side than the right. Upon ultrasound evaluation she has a 7 to 8 cm simple cyst present. Female Reproductive History Menopausal Symptoms: No night sweats History 2 Elective abortions 1 Hx Para 0 Spontaneous abortions Hx # Term Pregnancies 1 Ectopic pregnancies Hx # Pregnancies Multiple births 1 # of living children 2 Past Pregnancies Del. Date Name GA/Weeks Outcome Route Bth Weight Infant Gen Labor Lgth Anesthesia Del Locatn Provider FOB 04/10/20 Rubi 38 live - full term 6lbs 1oz Female [facility] 04/10/20 Katharine 38 live - full term 5lbs 2oz Female [facility] Delivery Date: 04/10/20 Last Updated by: Radha Guardado [facility] Delivery Date: 04/10/20 Last Updated by: Radha Guardado [facility] ROS Const Constitutional: Denies fatigue, night sweats, weight gain or weight loss ENT ENT: Reports system reviewed and no additional complaints, except as documented Cardio Card: Denies chest pain Resp Resp: Denies cough or dyspnea GI GI: Reports as per HPI; Denies abdominal pain, constipation, nausea or vomiting : Denies nipple discharge, urinary frequency, urinary incontinence, urinary hesitancy, urinary urgency, vaginal discharge, vaginal dryness, vaginal odor or vaginal pruritus Musc Musc: Denies arthralgias, back pain or muscle weakness Skin Skin/Breast: Denies alopecia, change in hair, dry skin, breast mass, breast pain, breast skin changes or nipple discharge Neuro Neuro: Reports system reviewed and no additional complaints, except as documented Psych Psych: Reports system reviewed and no additional complaints, except as documented Endo Endo: Denies cold intolerance, excessive sweating, heat intolerance or polydipsia Niranjan/Lymph Hematologic/Lymphatic: Denies easy bleeding, Denies easy bruising and Denies lymphadenopathy Exam Const General: cooperative, healthy appearing, comfortable and no acute distress Orientation: alert HENMT Head: normal to inspection and normocephalic Ears: hearing grossly normal bilaterally and external ears normal Nose: external nose normal and nares normal Face and sinus: normal facial exam Neck Neck: normal visual inspection and no lymphadenopathy Thyroid: thyroid normal Chest Chest palpation & inspection: normal inspection of the chest Resp Effort & Inspection: normal respiratory effort Auscultation: clear to auscultation bilaterally Cardio Rate: regular rate Rhythm: regular rhythm Heart Sounds: S1 normal and S2 normal GI Inspection: normal to inspection and non-distended Palpation: soft, no hepatosplenomegaly and tender Musc Other: gross motor intact no deficits, full bilateral strength Skin General: no rashes or lesions noted Neuro General: patient alert, patient awake, moves all extremities and no focal motor deficits Motor: muscle tone normal throughout Extrem General: normal to inspection and no pedal edema Psych Appearance: grossly normal Mental Status: mental status grossly normal Affect: normal affect Speech and Movement: speech and movement normal Coding Level of Care Code Off vis,est,level 4 Diagnoses Left ovarian cyst N83.202 Acute pelvic pain, female R10.2 Assessment and Plan Assessment and Plan (1) Left ovarian cyst: Status: Acute Comment: discussed exp management vs surgical evaluation, due to persistent pain proceed with surgical evaluation. plan laparoscopic ovarian cystectomy (2) Acute pelvic pain, female: Status: Acute Medications: New oxycodone-acetaminophen 5-325 mg (Percocet) 1 TAB PO Q6H 7 days 10 tabs 0RF R10.2 - Pelvic and perineal pain Plan reviewed torsion precautions. After discussing the patient's diagnosis and treatment plan options, patient wishes to proceed with surgical management. I have discussed with the patient the risks, benefits, and alternatives of the procedure which include but are not limited to risks of anesthesia, bleeding, infection, possible damage to bowel, bladder, or surrounding vasculature which could lead to additional surgery to evaluate any complications. Patient agrees to procedure and wishes to proceed. ACOG/uptodate references given for additional information regarding procedure. UPDATE- I have seen the patient and performed any clinically relevant updates to the history and physical exam. Jada Alves MD
--- NOTE | 2022-12-04 11:19 | PCM.OPRPT ---
Problems Associated Problem List Diagnoses (1) Acute pelvic pain, female: (2) Left ovarian cyst: Report of Operation Date of Procedure: 12/04/22 Pre-Operative Diagnosis: see problem list Post-Operative Diagnosis: same Surgery/Procedure Performed:: laparoscopic ovarian cystectomy Description of Surgical Findings:: left hemorrhagic and simple cysts on the left ovary left clubbed tube and scarred right normal tube and ovary Surgeon: Jada Alves roof bolter helper: None (vida lund) Type of Anesthesia: General and Local Special Medications: none Specimen's removed: ovarian cyst Drains: none Estimated Blood Loss (mL): 50 Fluids Replaced: crystalloid Description of Procedure: Patient was taken in the operating room and was placed under general anesthesia was prepped and draped in normal sterile fashion in the dorsal lithotomy position. Bladder was drained of clear urine and SCDs were on preoperatively. Uterus was sounded and a uterine manipulator was placed after dilating. Attention was then paid to the abdominal portion of the procedure and the umbilicus was elevated with towel clamps and injected with Marcaine and after a 5 mm incision was made and the Veress needle was entered into the abdomen confirmed to be intra-abdominal with a low opening pressure of less than 5 mmHg. Abdomen was insufflated with CO2 gas and a 5 mm optical trocar was placed under direct visualization. A right 5 and left lower quadrant 5 mm ports were placed under direct visualization. Hemosiderin deposition was noted throughout the lower pelvis. Left ovarian enlargement was noted with a simple cyst on the medium portion and hemorrhagic cyst noted on the lateral portion of the ovary. The left tube was noted to be blunted and clubbed and growing into the ovary and suspected to be nonfunctional however the right tube and ovary were noted to be within normal limits and appeared healthy. The left simple cyst was opened and drained of clear serous fluid and the cyst wall that was able to be removed was excised using the LigaSure device. Cautery used to obtain hemostasis. Hemorrhagic cyst was opened up and drained and irrigated. Floseal placed over the areas. Excellent hemostasis noted. All port sites were removed and the umbilicus was not noted to have any hernia sac palpated. Liver and upper abdomen were visualized notably within normal limits and no other gross abnormalities were seen in the abdomen. All instruments removed from the abdomen after gas was desufflated. Port sites were closed with 3-0 Monocryl Steri's and op sites were applied. All instruments removed from the vagina and patient was awoken and taken recovery in stable condition. Grafts/Implants Used: none Complications none Admit VTE Documentation VTE Present on Admission: No VTE Mechan Device Prophylaxis: SCD's Multi Select Codes Urinary/Genital Urinary/Genital CPT Codes: 64196 Laproscopic ablation endometriosis
--- NOTE | 2022-12-04 11:24 | DCINST_ITS ---
Discharge Instructions Diet Discharge Diet: No restrictions Activity Discharge Activity: Return to Normal Activity, May Not Drive (for 2 weeks or while taking narcotic pain meds.), May Shower and May Take a Tub Bath (in 7 days) May resume sexual activity in: 1 week Weight Bearing Status: Full weight bearing Dressing / Incision Call your doctor if your incision/area has: Continuous Slow Oozing, Sudden Increased Bleeding, Increased Pain/ Swelling, Increased Redness and Foul Smelling Discharge Call your doctor if you observe: Fever of 101 or Higher, Using more than 1 pad per hour, Shortness of breath, Chest pain and Uncontrolled pain Suture Line Care: Avoid Pulling/Pushing and Avoid Pinching/Bending Remove Dressing in: 1 week (if present) Cleanse incision/area with: Soap & Water and Keep Dressing Clean & Dry Follow Up Care When: Call to make an appointment with your doctor for a fu/incision check in 1- 2 weeks. Test Results: Test results from this visit will be discussed in further detail at your follow- up appointment, if applicable. Discharge Plan Admission Attending Provider: Jada Alves Primary Care Provider: Coral Garcia Discharge Orders/Prescriptions Prescriptions: New oxycodone-acetaminophen [Percocet] 5-325 mg tablet 1 tab PO Q6H PRN (Reason: pain) 7 Days Qty: 10 0RF naproxen [naproxen] 500 mg tablet 500 mg PO BID PRN PRN (Reason: Pain) Qty: 30 1RF No Action semaglutide (weight loss) 1 mg/0.5 mL pen injector 1 mg subcut QWEEK Rx Instructions: administer weeks 9 through 12 of therapy loratadine [Claritin] 10 mg tablet 10 mg PO DAILY citalopram [Celexa] 40 mg tablet 40 mg PO DAILY cannabis 5 mg PO DAILY PRN Patient Comments: gummies metronidazole 500 mg tablet 500 mg PO BID multivitamin Tablet 1 tab PO DAILY Referrals / Follow Up: Coral Garcia MD [Primary Care Provider] - Disposition Disposition (needs filled in before D/C Order can be placed): Home, Self Care
[2022-12-04] MEDS: Bupivacaine 0.25% 30 ML Vial (11:50)
[2022-12-04 12:45] VITALS: BP 100/55; BP 96/53; PULSE 68; RESP 16; TEMP 36.4; O2SAT 93
[2022-12-04 13:00] VITALS: BP 100/55; BP 95/56; PULSE 68; RESP 16; O2SAT 97
[2022-12-04 13:15] VITALS: BP 100/55; BP 98/51; PULSE 68; RESP 16; O2SAT 100
[2022-12-04 13:21] VITALS: BP 100/55; BP 97/66; PULSE 71; RESP 16; TEMP 36.7; O2SAT 97
[2022-12-04 13:51] VITALS: BP 100/55
== END 2022-12-04 13:55 | disposition home or self-care (01) ==
LOC: SDC 08:37 → AC 08:38
PROVIDERS: Anesthesiology; PCP Family Medicine; Referring Provider Obstetrics & Gynecology; Visit Provider Obstetrics & Gynecology
PROC: (CPT 58720; principal; 2022-12-04 10:15)
DX: N83.202 Unspecified ovarian cyst, left side (principal); N83.8 Other noninflammatory disorders of ovary, fallopian tube and broad ligament; J45.909 Unspecified asthma, uncomplicated; F17.210 Nicotine dependence, cigarettes, uncomplicated
CPT/HCPCS: 58662; 00840; 81025; 85027; 86850; 86900; 86901; 88305; J7120; J2405

== ENCOUNTER → 2023-04-29 | Outpatient (CLI) | payer BC, SELFPAY ==
--- NOTE | 2023-04-29 13:49 | US_ITS ---
STUDY: ULTRASOUND OF THE FEMALE PELVIS - COMPLETE REASON FOR EXAM: Female, 33 years old. Pelvic pain LMP: April 15, 2023. TECHNIQUE: Transabdominal and Transvaginal TECHNICAL QUALITY: Adequate. COMPARISON: Comparison is made with prior study dated November 09, 2022. FINDINGS: The uterus is anteverted and is in a midline position. The uterus measures 9.3 cm x 5.2 cm x 3.5 cm. There is a Nabothian cyst of the cervix. The endometrium measures 7 mm in thickness, and is hyperechoic. There is no demonstrated endometrial mass. There is no demonstrated myometrial mass. I.U.D. - The patient does not have an I.U.D. The right ovary is visualized. The right ovary measures 2.6 cm x 2.7 cm x 3.1 cm. There is no right ovarian cyst or ovarian mass. There is no visualized right adnexal mass or complex lesion. There is normal arterial and normal venous vascularity. The left ovary is visualized. The left ovary measures 5 cm x 5.1 cm x 3 cm. A dominant cyst is seen in the left ovary measuring 3.3 cm by 2.9 cm x 3.7 cm. There is no visualized left adnexal mass or complex lesion. There is normal arterial and normal venous vascularity. There is no fluid in the cul-de-sac. The pre void volume of the bladder was 81 ml. US/Pelvic w/ Transvaginal IMPRESSION: Left ovarian cyst. Electronically Signed: Steve Sykes MD at 15:24 EST ,
== END | disposition home or self-care (01) ==
PROVIDERS: PCP Family Medicine; Referring Provider Nurse Practitioner Women's Health; Visit Provider Nurse Practitioner Women's Health
DX: R10.2 Pelvic and perineal pain (principal)
CPT/HCPCS: 76830; 76856; 93976

== ENCOUNTER → 2023-06-03 | Outpatient (CLI) | payer BC, SELFPAY ==
--- NOTE | 2023-06-03 15:57 | US_ITS ---
INDICATION: follow up ovarian cyst EXAMINATION: Ultrasound US Pelvis Non OB Complete With Transvaginal Imaging TECHNIQUE: Transabdominal and transvaginal pelvic ultrasound was performed. Grayscale, spectral waveform, and color flow Doppler evaluation of the adnexa. COMPARISON: Pelvic ultrasound April 29, 2023. FINDINGS: The uterus measures 9 x 4.5 x 4 cm. Endometrium is within normal limits in thickness measuring 8 mm. Few nabothian cysts are identified. A 1.6 cm dominant simple follicle is in the right ovary. The left ovarian cyst present on the prior exam has resolved. Flow is demonstrated to the ovaries bilaterally. No free pelvic fluid. US/Pelvic w/ Transvaginal IMPRESSION: Interval resolution of the left ovarian cyst since the prior exam. Electronically Signed: Lio Wagner MD at 8:04 EST ,
== END | disposition home or self-care (01) ==
LOC: US 15:55
PROVIDERS: PCP Family Medicine; Referring Provider Nurse Practitioner Women's Health; Visit Provider Nurse Practitioner Women's Health
DX: N83.202 Unspecified ovarian cyst, left side (principal)
CPT/HCPCS: 76830; 76856

== ENCOUNTER → 2024-05-15 | Outpatient (CLI) | payer BC, SELFPAY ==
[2024-05-15 12:34] LABS: Vitamin D,25 Hydroxy 28.1 ng/mL
[2024-05-15 12:51] LABS: T4 Free Direct 0.89 ng/dL (0.76-1.46)
[2024-05-16 04:07] LABS: Thyroid Peroxidase AB 11 IU/mL (0-34)
[2024-05-19 10:08] LABS: HPV APTIMA, High Risk Negative (Negative)
== END | disposition home or self-care (01) ==
LOC: BWCLAB 11:03
PROVIDERS: PCP Family Medicine; Referring Provider Nurse Practitioner Women's Health; Visit Provider Nurse Practitioner Women's Health
DX: Z13.29 Encounter for screening for other suspected endocrine disorder (principal); N93.9 Abnormal uterine and vaginal bleeding, unspecified; L65.9 Nonscarring hair loss, unspecified; Z13.21 Encounter for screening for nutritional disorder; Z12.4 Encounter for screening for malignant neoplasm of cervix; R87.620 Atypical squamous cells of undetermined significance on cytologic smear of vagina (ASC-US)
CPT/HCPCS: 36415; 82306; 84439; 84443; 86376; 87624; 88175; G0145

== ENCOUNTER → 2024-05-18 | Outpatient (CLI) | payer BC, SELFPAY ==
--- NOTE | 2024-05-18 17:08 | US_ITS ---
PROCEDURE: PELVIC W/ TRANSVAGINAL REASON FOR EXAM: Pelvic pain. TECHNIQUE: Transabdominal and transvaginal pelvic ultrasound. Color and spectral doppler analysis of the ovaries. COMPARISON: Prior ultrasound 06/03/2023. FINDINGS: Measurements: Uterus: 9.2 x 3.8 x 4.3 cm. Estimated volume 77.9 mL Endometrial Thickness: 9.4 mm. Right Ovary: 2.9 x 2.6 x 3.1 cm with a volume of 11.6 mL . Left Ovary: 2.2 x 1.9 x 2.4 cm with a volume of 5.3 mL . TRANSABDOMINAL and transvaginal ultrasound: Uterus: Normal size, myometrial echotexture, and contour. Endometrium: A small amount of fluid is seen within the endometrial canal.. Right ovary: A right ovarian follicular cyst is measured at 2.3 x 2.1 x 2.1 cm. Normal size and echotexture, otherwise. Left ovary: Normal size and echotexture. An incompletely filled urinary bladder shows no abnormality. Estimated volume of 276 mL. No large pelvic mass identified. DOPPLER: Color Doppler: Normal color flow doppler signal at both ovaries. Spectral Doppler: Normal arterial inflow and venous outflow signal at both ovaries. US/Pelvic w/ Transvaginal IMPRESSION: 1. Small amount of fluid seen within the endometrial canal. 2. Right ovarian follicular cyst. 3. No evidence of ovarian torsion. 4. No free fluid is seen. Reading Location: [id number]
== END | disposition home or self-care (01) ==
LOC: US 17:02
PROVIDERS: PCP Family Medicine; Referring Provider Nurse Practitioner Women's Health; Visit Provider Nurse Practitioner Women's Health
DX: R10.2 Pelvic and perineal pain (principal); Z87.42 Personal history of other diseases of the female genital tract
CPT/HCPCS: 76830; 76856